=== PATIENT | female | born 1955 | race Caucasian/White ===

== ENCOUNTER → 2017-11-23 | Outpatient (CLI) | payer BC ==
[2017-11-23 17:20] LABS: ESTIMATED AVERAGE GLUCOSE 105 MG/DL (60-110); HEMOGLOBIN A1c 5.3 %
[2017-11-23 17:37] LABS: FERRITIN 125 NG/ML (8-252); IRON (FE) 43 UG/DL (50-170); PERCENT SATURATION 12.9 % (13.2-45.0); TOTAL IRON BINDING CAPACITY 333 UG/DL (250-450)
[2017-11-24 09:38] LABS: FOLATE 18.9 NG/ML; VITAMIN B12 LEVEL > 2000 PG/ML
[2017-11-28 00:10] LABS: TRANSFERRIN 255 mg/dL (200-370)
== END ==
LOC: M LAB 16:41
DX: D64.9 Anemia, unspecified (principal)
CPT/HCPCS: 82746

== ENCOUNTER → 2017-12-06 | Outpatient (REF) | payer BC ==
[2017-12-08 10:26] LABS: CA 125 6.7 U/ML (<30.2)
== END ==
LOC: M LAB REF 13:44
DX: C54.1 Malignant neoplasm of endometrium (principal); C78.7 Secondary malignant neoplasm of liver and intrahepatic bile duct; C77.9 Secondary and unspecified malignant neoplasm of lymph node, unspecified
CPT/HCPCS: 86304

== ENCOUNTER → 2017-12-14 | Outpatient (REF) | payer BC ==
[2017-12-14 14:27] LABS: FREE T4 1.13 NG/DL (0.76-1.46)
== END ==
LOC: M LAB REF 13:33
DX: Z79.899 Other long term (current) drug therapy (principal); C54.1 Malignant neoplasm of endometrium; C78.7 Secondary malignant neoplasm of liver and intrahepatic bile duct; C77.9 Secondary and unspecified malignant neoplasm of lymph node, unspecified
CPT/HCPCS: 84443

== ENCOUNTER → 2018-01-04 | Outpatient (REF) | payer BC ==
[2018-01-04 17:59] LABS: FERRITIN 34 NG/ML (8-252); IRON (FE) 38 UG/DL (50-170); PERCENT SATURATION 11.7 % (13.2-45.0); TOTAL IRON BINDING CAPACITY 326 UG/DL (250-450)
[2018-01-05 10:43] LABS: CA 125 6.4 U/ML (<30.2)
== END ==
LOC: M LAB REF 17:22
DX: C54.1 Malignant neoplasm of endometrium (principal); C77.9 Secondary and unspecified malignant neoplasm of lymph node, unspecified; C78.7 Secondary malignant neoplasm of liver and intrahepatic bile duct

== ENCOUNTER → 2018-03-09 | Outpatient (CLI) | payer BC | LOC: M RAD 09:10 | DX: C54.1 Malignant neoplasm of endometrium (principal); N13.30 Unspecified hydronephrosis | CPT/HCPCS: 76775 ==

== ENCOUNTER → 2018-03-12 | Outpatient (REF) | payer BC ==
[2018-03-12 18:50] LABS: FERRITIN 45 NG/ML (8-252); IRON (FE) 29 UG/DL (50-170); PERCENT SATURATION 11.8 % (13.2-45.0); TOTAL IRON BINDING CAPACITY 245 UG/DL (250-450)
[2018-03-13 09:30] LABS: CA 125 3.6 U/ML (<30.2)
== END ==
LOC: M LAB REF 17:53
DX: C54.1 Malignant neoplasm of endometrium (principal); C78.7 Secondary malignant neoplasm of liver and intrahepatic bile duct; C77.9 Secondary and unspecified malignant neoplasm of lymph node, unspecified; C78.01 Secondary malignant neoplasm of right lung; C78.02 Secondary malignant neoplasm of left lung

== ENCOUNTER → 2018-03-15 | Outpatient (REF) | payer BC ==
[2018-03-15 17:01] LABS: APPEARANCE, URINE CLEAR (CLEAR); BACTERIA, URINE AUTO NEGATIVE (NEGATIVE); BILIRUBIN, URINE AUTO NEGATIVE (NEGATIVE); BLOOD, URINE BLOOD NEGATIVE (NEGATIVE); COLOR, URINE YELLOW (YELLOW); GLUCOSE, URINE (UA) AUTO NEGATIVE (NEGATIVE); KETONE, URINE AUTO NEGATIVE (NEGATIVE); LEUKOCYTE ESTERASE, URINE AUTO NEGATIVE (NEGATIVE); MUCUS, URINE SMALL (NEGATIVE); NITRITE, URINE AUTO NEGATIVE (NEGATIVE); PROTEIN, URINE AUTO NEGATIVE (NEGATIVE); RBC, URINE AUTO 3 /HPF (0-3); SPECIFIC GRAVITY URINE AUTO 1.018 (1.002-1.035); SQUAMOUS EPITHELIAL CELL UR AU 0 /HPF (0-6); UROBILINOGEN, URINE AUTO 0.2 mg/dL (0.0-2.0); WBC, URINE AUTO 1 /HPF (0-3)
[2018-03-15 17:31] LABS: MALB URINE SIEMENS 15.8 MG/L
[2018-03-15 17:40] LABS: MAU/CREAT RATIO 14.4 MCG/MG (0.0-30.0)
== END ==
LOC: M SFHCPLAZ 14:50
DX: N17.9 Acute kidney failure, unspecified (principal)

== ENCOUNTER → 2018-04-12 | Outpatient (REF) | payer BC ==
[2018-04-12 16:44] LABS: ANION GAP 6 MEQ/L (8-16); BLOOD UREA NITROGEN 15 MG/DL (7-18); CALCIUM LEVEL 8.8 MG/DL (8.8-10.2); CARBON DIOXIDE LEVEL 30 MEQ/L (21-32); CHLORIDE LEVEL 101 MEQ/L (98-107); GLOMERULAR FILTRATION RATE > 60.0 (>45); GLUCOSE, FASTING 87 MG/DL (70-100); POTASSIUM SERUM 4.1 MEQ/L (3.5-5.1); SODIUM LEVEL 137 MEQ/L (136-145)
== END ==
LOC: M SFHCPLAZ 12:17
DX: N13.39 Other hydronephrosis (principal)
CPT/HCPCS: 80048

== ENCOUNTER 2018-06-15 08:46 | Emergency (ER) | payer BC ==
[~2018-06-15] VITALS: Ht 160 cm; Wt 54.5 kg
--- NOTE | 2018-06-15 10:19 | REP ---
Clinical: Left lower extremity pain and swelling with history of malignancy . Technique: Salas scale and color Doppler evaluation using linear high frequency transducer. Findings: Ultrasound examination of the left lower extremity deep venous structures from the common femoral vein to the popliteal vein was performed. There is nonocclusive thrombus in the common femoral vein extending in to the confluence with the greater saphenous vein and the more distal vessels demonstrate patent but stagnant decreased flow. Impression: Partially occlusive thrombus in the common femoral vein extending into the visualized proximal greater saphenous vein Electronically Signed by Keith Denise MD 06/15/2018 10:10 A
[2018-06-15 10:28] LABS: BASO % 0.1 % (0.0-1.0); EOS % 0.3 % (0.0-3.0); HEMATOCRIT 27.7 % (36.0-47.0); HEMOGLOBIN 8.7 g/dl (12.0-15.5); LYMPH # 0.6 10^3/uL (1.5-4.5); LYMPH % 8.3 % (24.0-44.0); MEAN CORPUSCULAR HGB CONC 31.4 g/dl (32.0-36.5); MONO # 0.6 10^3/uL (0.0-0.8); MONO % 8.4 % (0.0-5.0); NEUTROPHILS # 5.8 10^3/uL (1.8-7.7); NEUTROPHILS % 82.5 % (36.0-66.0); PLATELET COUNT, AUTOMATED 259 10^3/uL (150-450); RED BLOOD COUNT 3.22 10^6/uL (4.00-5.40)
[2018-06-15 10:40] LABS: PROTHROMBIN TIME 13.3 SECONDS (12.1-14.4)
[2018-06-15 11:01] LABS: ALBUMIN 3.3 GM/DL (3.2-5.2); BILIRUBIN,TOTAL 0.4 MG/DL (0.2-1.0); CALCIUM LEVEL 9.6 MG/DL (8.8-10.2); CREATININE FOR GFR 1.09 MG/DL (0.55-1.30); GLOMERULAR FILTRATION RATE 54.1 (>45); POTASSIUM SERUM 4.3 MEQ/L (3.5-5.1); TOTAL PROTEIN 7.5 GM/DL (6.4-8.2)
[2018-06-15] MEDS ORDERED: ISOVUE-370 76% 100ML VIAL (Q9967) As Ordered ONE (11:12)
--- NOTE | 2018-06-15 11:30 | ECGEPIP ---
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
--- NOTE | 2018-06-15 12:26 | REP ---
Clinical: Acute chest pain with shortness of breath . Technique: Axial contrast enhanced images from the thoracic inlet to the upper abdomen using 100 ml Isovue 370 intravenous contrast material with coronal and sagittal re-formations. Findings: Satisfactory enhancement of the pulmonary vasculature is achieved and no filling defects are identified to suggest pulmonary embolus. Thoracic aorta is normal caliber without aneurysm or dissection. Heart and pericardium are normal. Bilateral lung majano are well aerated and clear without acute pulmonary parenchymal consolidation or atelectasis. No nodule or mass lesion. No pleural effusion/reaction. No pneumothorax. No adenopathy. Impression: No evidence for pulmonary embolus. No acute pleuroparenchymal or mediastinal process. Electronically Signed by Keith Denise MD 06/15/2018 12:18 P
[2018-06-15] MEDS ORDERED: ELIQ5TAB PO (13:27)
[2018-06-15 13:32] VITALS: BP 128/64
== END 2018-06-15 13:44 | disposition home or self-care (01) ==
LOC: M ED 08:46
DX: C54.1 Malignant neoplasm of endometrium (principal); N13.30 Unspecified hydronephrosis; I82.412 Acute embolism and thrombosis of left femoral vein; D64.9 Anemia, unspecified; Z79.01 Long term (current) use of anticoagulants
CPT/HCPCS: 36415; 71275; 80053; 85025; 85610; 93005; 93971; 99284; Q9967

== ENCOUNTER → 2018-06-15 | Outpatient (CLI) | payer BC ==
[~2018-06-15] MED LIST: ELIQ5TAB PO; NORCOTAB PO
--- NOTE | 2018-06-15 09:16 | REP ---
Clinical: Endometrial cancer with pelvic mass. Technique: Axial noncontrast images from the lung bases to the pubic symphysis with coronal and sagittal re-formations. Comparison: None. Findings: Evaluation is significantly limited by the lack of oral and into venous contrast enhancement as well as paucity of intraperitoneal fat. Large low density liver mass in the left lobe measures approximately 5.7 cm and is concerning for metastatic disease. Mesenteric and retroperitoneal adenopathy along with pelvic adenopathy and ill-defined large pelvic mass is appreciated but poorly delineated due to the lack of contrast. There is associated left-sided grade 4 hydroureteronephrosis which terminates at the level of bulky soft tissue within the pelvis consistent with extrinsic obstruction by the neoplasm. There is a vague subcutaneous infiltration involving the visualized portion of the left hip and very vague subtle stranding involving the left external iliac and common femoral vein raising the possibility of venous obstruction either by thrombus or more central compression by adenopathy/mass. Spleen, pancreas, bilateral adrenal glands and right kidney appear normal for noncontrast evaluation. The enteric system is without obstruction. Small amount of ascites suggested in the pelvis. No free air. Abdominal aorta without aneurysm. Musculoskeletal structures demonstrate degenerative changes without obvious focal osseous metastatic lesion identified. However, there is a somewhat mottled appearance to the left inferior pubic ramus and ischium with a subtle cortical irregularities raising the possibility of infiltrating metastatic disease (images [id number]). Lung bases are clear. Impression: 1. Hepatic mass along with suspected intraperitoneal and retroperitoneal adenopathy and pelvic mass/adenopathy consistent with malignancy and metastatic disease. 2. Grade 4 left hydroureteronephrosis secondary to obstruction by pelvic mass. 3. Asymmetric subcutaneous edema involving the visualized left hip with subtle infiltration surrounding the left external iliac vein and common femoral vein raising the possibility of venous obstruction either by extrinsic compression or thrombus. 4. Further chronic changes as described above. Electronically Signed by Keith Denise MD 06/15/2018 09:07 A
== END ==
LOC: M RAD 08:26
PROVIDERS: ATTEND Internal Medicine Medical Oncology
DX: C54.1 Malignant neoplasm of endometrium (principal); C78.7 Secondary malignant neoplasm of liver and intrahepatic bile duct; K76.89 Other specified diseases of liver

== ENCOUNTER 2018-06-22 14:01 | Emergency (ER) | payer BC ==
[~2018-06-22] VITALS: Ht 160 cm; Wt 55.9 kg
[~2018-06-22 14:01] MED LIST changes: -NORCOTAB PO
[2018-06-22 14:48] LABS: HEMATOCRIT 26.4 % (36.0-47.0); HEMOGLOBIN 8.5 g/dl (12.0-15.5); MEAN CORPUSCULAR HEMOGLOBIN 27.2 pg (27.0-33.0); MEAN CORPUSCULAR HGB CONC 32.2 g/dl (32.0-36.5); MEAN CORPUSCULAR VOLUME 84.6 fl (80.0-96.0); PLATELET COUNT, AUTOMATED 298 10^3/uL (150-450); RED BLOOD COUNT 3.12 10^6/uL (4.00-5.40)
[2018-06-22 14:58] LABS: INR 1.28; PROTHROMBIN TIME 16.1 SECONDS (12.1-14.4)
[2018-06-22 14:59] LABS: PARTIAL THROMBOPLASTIN TIME 40.8 SECONDS (25.4-37.6)
[2018-06-22 15:09] LABS: BLOOD UREA NITROGEN 17 MG/DL (7-18); CALCIUM LEVEL 9.2 MG/DL (8.8-10.2); CARBON DIOXIDE LEVEL 29 MEQ/L (21-32); CHLORIDE LEVEL 96 MEQ/L (98-107); CREATININE FOR GFR 0.94 MG/DL (0.55-1.30); GLOMERULAR FILTRATION RATE > 60.0 (>45); GLUCOSE, FASTING 103 MG/DL (70-100); POTASSIUM SERUM 4.2 MEQ/L (3.5-5.1); SODIUM LEVEL 133 MEQ/L (136-145)
--- NOTE | 2018-06-22 15:48 | REP ---
REASON: Pain and swelling. Multiple ultrasonographic images of the deep venous structures of the left thigh were obtained along with Doppler interrogation and compressive techniques with augmentation. Abnormal echogenic material is seen in the common femoral vein. Coaptation is not achievable. There is a decreased response to augmentation. IMPRESSION: Positive deep vein thrombosis, proximal common femoral vein. Electronically Signed by Papito Acosta DO 06/22/2018 04:55 P
[2018-06-22 16:30] VITALS: BP 131/78
[2018-06-22] MEDS ORDERED: NORCOTAB PO (17:26)
[2018-06-22] MEDS ORDERED: NORCO, ANEXSIA 5/325MG TABLET (HYDROcodone/ACETAMINOPHEN) PO ONE (17:30)
[2018-07-04] MEDS ORDERED: ELIQ5TAB PO (10:18)
== END 2018-06-22 17:54 | disposition home or self-care (01) ==
LOC: M ED 14:01
DX: I82.412 Acute embolism and thrombosis of left femoral vein (principal); Z85.42 Personal history of malignant neoplasm of other parts of uterus; Z79.01 Long term (current) use of anticoagulants

== ENCOUNTER 2018-07-16 12:46 | Outpatient (CLI) | payer BC ==
[~2018-07-16] VITALS: Ht 160 cm; Wt 57.1 kg
[~2018-07-16 12:46] MED LIST changes: +NORCOTAB PO
[2018-07-16] MEDS ORDERED: NORCOTAB PO (12:59)
[2018-07-16 13:20] VITALS: BP 130/58
[2018-07-16] MEDS ORDERED: ACETAMINOPHEN TAB 650MG DOSE (2X325MG) PO ONE (13:45)
[2018-07-16] MEDS ORDERED: diphenhydrAMINE 25 MG CAP PO ONE (13:45)
[2018-07-16] MEDS ORDERED: EMEN150S IV (18:42)
[2018-07-16] MEDS ORDERED: [UNRECOGNIZED DRUG - CODE] IV (18:42)
[2018-07-16] MEDS ORDERED: PACL150I IV (18:42)
[2018-07-16] MEDS ORDERED: [UNRECOGNIZED DRUG - CODE] IV (18:42)
[2018-07-16] MEDS ORDERED: NEUL0.6I SC (18:42)
[2018-07-16] MEDS ORDERED: DIPH50VL IV (18:42)
[2018-07-16] MEDS ORDERED: NORC1TAB4 PO (18:42)
[2018-07-16] MEDS ORDERED: ELIQ5TAB PO (18:42)
[2018-07-16] MEDS ORDERED: [UNRECOGNIZED DRUG - CODE] IV (18:42)
[2018-07-16] MEDS ORDERED: [UNRECOGNIZED DRUG - CODE] IV (18:42)
[2018-07-16] MEDS ORDERED: FISH1000 PO (22:48)
[2018-07-16] MEDS ORDERED: VITA500T PO (22:48)
[2018-07-16] MEDS ORDERED: MAGN400T2 PO (22:48)
[2018-07-16] MEDS ORDERED: B COTAB3 PO (22:48)
[2018-07-16] MEDS ORDERED: CALC500T36 PO (22:48)
[2018-07-16] MEDS ORDERED: VITA100066 PO (22:48)
== END 2018-07-16 16:15 | disposition home or self-care (01) ==
LOC: M OPCLI4PR 12:46 → M MS4PR 12:48 → M OPCLI4PR 16:15
PROVIDERS: ATTEND Internal Medicine Medical Oncology
DX: D64.9 Anemia, unspecified (principal)

== ENCOUNTER 2018-07-16 15:26 | Inpatient (IN) | payer BC ==
[2018-07-16] MEDS ORDERED: ISOVUE-300 61% 50ML VIAL (Q9967) As Ordered ONE (15:35)
[2018-07-16] MEDS ORDERED: LIDOCAINE 2% MDV 20 ML VIAL As Ordered ONE ×2 (15:35→15:43)
[2018-07-16] MEDS ORDERED: HEPARIN 1,000 UNITS/ML 10ML VIAL (FOR RADIOLOGY& DIALYSIS ONLY) As Ordered ONE (15:35)
[2018-07-16] MEDS ORDERED: HEPARIN 25,000 UNITS/250 ML D5W BAG (100 UNITS/ML) As Ordered ONE (15:42)
[2018-07-16] MEDS ORDERED: ALTEPLASE 2 MG/2 ML VIAL (J2997 PER 1MG) As Ordered ONE (15:55)
[2018-07-16 16:30] VITALS: BP 143/83
[2018-07-16] MEDS ORDERED: [UNRECOGNIZED DRUG - CODE] IV (18:42)
[2018-07-16] MEDS ORDERED: [UNRECOGNIZED DRUG - CODE] IV (18:42)
[2018-07-16] MEDS ORDERED: DIPH50VL IV (18:42)
[2018-07-16] MEDS ORDERED: NORC1TAB4 PO (18:42)
[2018-07-16] MEDS ORDERED: [UNRECOGNIZED DRUG - CODE] IV (18:42)
[2018-07-16] MEDS ORDERED: NEUL0.6I SC (18:42)
[2018-07-16] MEDS ORDERED: EMEN150S IV (18:42)
[2018-07-16] MEDS ORDERED: ELIQ5TAB PO (18:42)
[2018-07-16] MEDS ORDERED: [UNRECOGNIZED DRUG - CODE] IV (18:42)
[2018-07-16] MEDS ORDERED: PACL150I IV (18:42)
[2018-07-16] MEDS ORDERED: ALTEPLASE RECOMBINANT 25 MG in NS 225 ML IV SCH (21:00)
[2018-07-16 22:04] VITALS: BP 143/83
[2018-07-16] MEDS: HEPARIN DRIP 25,000 UNITS in APPROPRIATE DILUENT 1 EA IV SCH (22:30)
[2018-07-16] MEDS ORDERED: SLF 3 ML SYR IV PRN (22:30)
[2018-07-16] MEDS ORDERED: VITA100066 PO (22:48)
[2018-07-16] MEDS ORDERED: B COTAB3 PO (22:48)
[2018-07-16] MEDS ORDERED: FISH1000 PO (22:48)
[2018-07-16] MEDS ORDERED: CALC500T36 PO (22:48)
[2018-07-16] MEDS ORDERED: MAGN400T2 PO (22:48)
[2018-07-16] MEDS ORDERED: VITA500T PO (22:48)
[2018-07-16 23:01] LABS: HEMATOCRIT 26.3 % (36.0-47.0); HEMOGLOBIN 8.3 g/dl (12.0-15.5)
[2018-07-16 23:11] VITALS: BP 127/64
[2018-07-16 23:12] LABS: INR 0.99; PROTHROMBIN TIME 13.2 SECONDS (12.1-14.4)
[2018-07-16 23:14] LABS: PARTIAL THROMBOPLASTIN TIME 50.9 SECONDS (25.4-37.6)
[2018-07-16 23:30] VITALS: BP 129/67
[2018-07-16] MEDS: NORCO, ANEXSIA 5/325MG TABLET (HYDROcodone/ACETAMINOPHEN) PO PRN (23:49)
[2018-07-17] VITALS (24 sets, daily range): BP systolic 116–146; BP diastolic 63–77
[2018-07-17] MEDS: SLF 3 ML SYR IV SCH ×3 (05:46→21:13)
[2018-07-17] MEDS: SODIUM CHLORIDE 0.9% INJ 10 ML SYR IV SCH ×2 (05:46→18:14)
[2018-07-17] MEDS: NORCO, ANEXSIA 5/325MG TABLET (HYDROcodone/ACETAMINOPHEN) PO PRN ×3 (05:47→18:14)
[2018-07-17 06:12] LABS: PARTIAL THROMBOPLASTIN TIME 67.8 SECONDS (25.4-37.6)
[2018-07-17 06:47] LABS: HEMATOCRIT 25.4 % (36.0-47.0); HEMOGLOBIN 8.2 g/dl (12.0-15.5); MEAN CORPUSCULAR HGB CONC 32.3 g/dl (32.0-36.5); MEAN CORPUSCULAR VOLUME 83.6 fl (80.0-96.0); PLATELET COUNT, AUTOMATED 121 10^3/uL (150-450); RED BLOOD COUNT 3.04 10^6/uL (4.00-5.40); WHITE BLOOD COUNT 12.4 10^3/uL (4.0-10.0)
[2018-07-17 06:50] LABS: BLOOD UREA NITROGEN 15 MG/DL (7-18); CALCIUM LEVEL 8.7 MG/DL (8.8-10.2); CARBON DIOXIDE LEVEL 26 MEQ/L (21-32); CHLORIDE LEVEL 97 MEQ/L (98-107); CREATININE FOR GFR 0.77 MG/DL (0.55-1.30); GLOMERULAR FILTRATION RATE > 60.0 (>45); GLUCOSE, FASTING 100 MG/DL (70-100); POTASSIUM SERUM 4.2 MEQ/L (3.5-5.1); SODIUM LEVEL 132 MEQ/L (136-145)
--- NOTE | 2018-07-17 11:33 | HPEPDOC ---
General Date of Admission Jul 16, 2018 at 16:30 Attending Physician: Matteo Sandoval MD Chief Complaint The patient is a 63-year-old female admitted with left lower extremity DVT with extensive swelling and severe pain. Source: Patient, Old records Exam Limitations: No limitations Timing/Duration: Week(s) (approximately 4 weeks), Constant, Getting worse History of Present Illness Patient is a 63-year-old female who was diagnosed with left lower extremity DVT approximately 1 month ago and has been treated as an outpatient who now presents with worsening swelling and pain in her left lower extremity with inability to ambulate and complaining of 10 out of 10 pain in her left lower extremity. Home Medications Scheduled (B Complex) 1 Tab Tab, 1 TAB PO DAILY, (Reported) Apixaban Base (Eliquis) 5 Mg Tab, 5 MG PO BID, (Reported) Ascorbic Acid (Vitamin C) 500 Mg Tab, 500 MG PO DAILY, (Reported) Cholecalciferol (Vitamin D) 1,000 Unit Tab, 1,000 UNIT PO DAILY, (Reported) Fish Oil (Fish Oil) 1,000 Mg Cap, 1,000 MG PO DAILY, (Reported) Magnesium Oxide (Magnesium Oxide) 400 Mg Tab, 400 MG PO DAILY, (Reported) Oyster Shell Calcium (Calcium) 500 Mg Tab, 500 MG PO DAILY, (Reported) Scheduled PRN (Lidocaine/Prilocaine 2.5-2.5 %) 1 Cre Cre, 1 DOSE TOP PRN PRN for PAIN, (Reported) APPLY TO PORT Allergies Coded Allergies: No Known Drug Allergy (Verified Allergy, Unknown, 12/06/17) Past Medical History Medical History Metastatic endometrial cancer Left lower extremity DVT Surgical History Pilonidal cystectomy Family History Significant Family History: Diabetes, Heart disease, Hypertension Father's with a history of coronary artery disease and diabetes mellitus Mother is with a history of hypertension Social History * Smoker: Denies Alcohol: Denies Drugs: denies Recent Travel/Sick Contacts: Denies: Recent travel, Recent sick contacts Psychosocial History: No pertinent psych hx Review of Systems Review of Systems General: Denies: Chills, Night Sweats, Fatigue, Malaise, Normal Appetite Constitutional: Denies: Chills, Fever, Malaise, Night Sweats, Weakness, Fatigue, Weight Loss, Lethargy Eyes: Denies: Pain, Vision change, Conjunctivae inflammation, Eyelid inflammation, Redness HEENT: Denies: Head Aches, Ear Pain, Dysphagia, Sinus Congestion, Post Nasal Drip, Sore Throat, Epistaxis Skin: Denies: Rash, Lesions, Jaundice, Bruising, Itching, Dry, Breakdown, Nail Changes Pulmonary: Denies: Dyspnea, Cough, Pleuritic Chest Pain Cardiovascular: Denies: Chest Pain, Palpitations, Orthopnea, Paroxysmal Noc. Dyspnea, Edema, Lt Headedness Gastrointestinal: Denies: Nausea, Vomiting, Abdominal Pain, Diarrhea, Constipation, Melena, Hematochezia Genitourinary: Denies: Dysuria, Frequency, Incontinence, Hematuria, Retention Hematologic: Denies: Bruising, Bleeding Excessively, Petecchia, Purpura, Enlarged Lymph Nodes ENDOCRINE: Denies: Polydipsia, Polyphagia, Polyuria, Heat Intolerance, Cold Intolerance Musculoskeletal: Reports: Leg Pain, Foot Pain; Denies: Neck Pain, Back Pain, Shoulder Pain, Arm Pain, Hand Pain, Joint Pain, Muscle Pain, Spasms Neurological: Denies: Weakness, Numbness, Incoordination, Change in speech, Confusion, Seizures Psych: Reports: Mood Normal, Anxiety, Depression; Denies: Memory Issues, Thoughts of Self Harm, Anger, Thoughts of Harming Other Objective Physical Examination General Exam: Positive: Alert, Cooperative, Moderate Distress Eye Exam: Positive: PERRLA, Conjunctiva & lids normal, EOMI ENT Exam: Positive: Atraumatic, Mucous membr. moist/pink, Pharynx Normal, Tongue Midline, Nares Patent, Ext Auditory Canal Nml, Pinna Normal Neck Exam: Positive: Supple, +2 carotid pulse wo bruit; Negative: JVD, thyromegaly, Lymphadenopathy Chest Exam: Positive: Clear to auscultation, Normal air movement; Negative: Rales, Rhonchi, Wheezing, Diminished Heart Exam: Positive: Tachycardic, Regular Rhythm; Negative: Bradycardic, Irregular Rhythm, Gallops, Murmurs, Rubs Telemetry: Positive: No significant arrhythmia, Sinus Abdomen Exam: Positive: Normal bowel sounds, Soft; Negative: BS Hyperactive, BS Hypoactive, Tenderness, Hepatospenomegaly, Mass, Hernia Female Exam: Positive: Nl Ext Genitalia Extremity Exam: Positive: Cyanosis, Edema, Normal pulses, Tenderness, Swelling; Negative: Clubbing Skin Exam: Positive: Nl turgor and temperature; Negative: Rash, Breakdown, Lesion, Pruritus Neuro Exam: Positive: Normal Gait, Normal Speech, Strength at 5/5 X4 ext, Normal Tone, Sensation Intact, Cranial Nerves 3-12 NL, Reflexes 2+ Psych Exam: Positive: Mental status NL, Mood NL, Memory Intact, Oriented x 3; Negative: Anxiety Assessment/Plan Assessment 63-year-old female with massive left lower extremity swelling, severe pain and extensive DVT. Plan Patient will be admitted started on a heparin drip and will undergo a left lower extremity venous thrombolysis. Matteo Sandoval MD Jul 17, 2018 11:33
[2018-07-17] MEDS: SODIUM CHLORIDE 0.9% INJ 10 ML SYR IV PRN (12:18)
[2018-07-17 12:32] LABS: HEMOGLOBIN 8.6 g/dl (12.0-15.5)
[2018-07-17] MEDS ORDERED: MOM 30ML SUSPENSION UDC PO ONE (13:30)
[2018-07-17] MEDS: DOCUSATE SODIUM 100 MG CAP PO SCH (13:49)
[2018-07-17 18:38] LABS: HEMATOCRIT 26.4 % (36.0-47.0); HEMOGLOBIN 8.5 g/dl (12.0-15.5)
[2018-07-17] MEDS: ALTEPLASE RECOMBINANT 10 MG in NS 90 ML IV SCH (20:56)
[2018-07-17] MEDS: HEPARIN DRIP 25,000 UNITS in APPROPRIATE DILUENT 1 EA IV SCH (20:57)
[2018-07-17 23:40] LABS: HEMATOCRIT 26.7 % (36.0-47.0); HEMOGLOBIN 8.4 g/dl (12.0-15.5)
[2018-07-17 23:53] LABS: PARTIAL THROMBOPLASTIN TIME 51.5 SECONDS (25.4-37.6)
[2018-07-18] VITALS (18 sets, daily range): BP systolic 103–143; BP diastolic 62–103
[2018-07-18] MEDS: NORCO, ANEXSIA 5/325MG TABLET (HYDROcodone/ACETAMINOPHEN) PO PRN ×4 (00:06→18:11)
[2018-07-18] MEDS: SODIUM CHLORIDE 0.9% INJ 10 ML SYR IV SCH ×2 (05:42→18:10)
[2018-07-18] MEDS: SLF 3 ML SYR IV SCH (05:42)
[2018-07-18 06:11] LABS: HEMATOCRIT 27.2 % (36.0-47.0); HEMOGLOBIN 8.5 g/dl (12.0-15.5); MEAN CORPUSCULAR HEMOGLOBIN 26.2 pg (27.0-33.0); MEAN CORPUSCULAR HGB CONC 31.3 g/dl (32.0-36.5); MEAN CORPUSCULAR VOLUME 83.7 fl (80.0-96.0); PLATELET COUNT, AUTOMATED 139 10^3/uL (150-450); RED BLOOD COUNT 3.25 10^6/uL (4.00-5.40); WHITE BLOOD COUNT 15.6 10^3/uL (4.0-10.0)
[2018-07-18 06:34] LABS: BLOOD UREA NITROGEN 14 MG/DL (7-18); CALCIUM LEVEL 8.5 MG/DL (8.8-10.2); CARBON DIOXIDE LEVEL 27 MEQ/L (21-32); CHLORIDE LEVEL 95 MEQ/L (98-107); CREATININE FOR GFR 0.61 MG/DL (0.55-1.30); GLOMERULAR FILTRATION RATE > 60.0 (>45); GLUCOSE, FASTING 107 MG/DL (70-100); POTASSIUM SERUM 4.3 MEQ/L (3.5-5.1); SODIUM LEVEL 130 MEQ/L (136-145)
[2018-07-18 06:47] LABS: PARTIAL THROMBOPLASTIN TIME 41.1 SECONDS (25.4-37.6)
[2018-07-18] MEDS: DOCUSATE SODIUM 100 MG CAP PO SCH (10:01)
[2018-07-18 12:11] LABS: HEMATOCRIT 26.7 % (36.0-47.0); HEMOGLOBIN 8.4 g/dl (12.0-15.5)
[2018-07-18 12:21] LABS: PARTIAL THROMBOPLASTIN TIME 49.5 SECONDS (25.4-37.6)
[2018-07-18 18:28] LABS: HEMATOCRIT 26.1 % (36.0-47.0); HEMOGLOBIN 8.2 g/dl (12.0-15.5)
[2018-07-18] MEDS: SENNA 8.6 MG TAB (SENOKOT) PO PRN (18:35)
[2018-07-18 18:48] LABS: PARTIAL THROMBOPLASTIN TIME 42.1 SECONDS (25.4-37.6)
[2018-07-18] MEDS: NS 1,000 ML IV SCH (19:41)
[2018-07-18] MEDS: ALTEPLASE RECOMBINANT 10 MG in NS 90 ML IV SCH (22:14)
[2018-07-18] MEDS: HEPARIN DRIP 25,000 UNITS in APPROPRIATE DILUENT 1 EA IV SCH (22:15)
[2018-07-19] VITALS (21 sets, daily range): BP systolic 101–149; BP diastolic 57–77
[2018-07-19] MEDS: NORCO, ANEXSIA 5/325MG TABLET (HYDROcodone/ACETAMINOPHEN) PO PRN ×5 (00:04→23:57)
[2018-07-19] MEDS: SODIUM CHLORIDE 0.9% INJ 10 ML SYR IV PRN ×2 (00:05→23:45)
[2018-07-19 00:34] LABS: HEMATOCRIT 24.1 % (36.0-47.0); HEMOGLOBIN 7.7 g/dl (12.0-15.5)
[2018-07-19 00:41] LABS: PARTIAL THROMBOPLASTIN TIME 49.7 SECONDS (25.4-37.6)
[2018-07-19] MEDS ORDERED: LIDOCAINE 5% (LIDODERM) PATCH TD ONE (05:00)
[2018-07-19] MEDS: SODIUM CHLORIDE 0.9% INJ 10 ML SYR IV SCH ×2 (06:00→18:04)
[2018-07-19] MEDS: NS 1,000 ML IV SCH ×2 (06:14→15:38)
[2018-07-19 06:30] LABS: HEMATOCRIT 23.3 % (36.0-47.0); HEMOGLOBIN 7.4 g/dl (12.0-15.5); MEAN CORPUSCULAR HEMOGLOBIN 26.8 pg (27.0-33.0); MEAN CORPUSCULAR HGB CONC 31.8 g/dl (32.0-36.5); MEAN CORPUSCULAR VOLUME 84.4 fl (80.0-96.0); PLATELET COUNT, AUTOMATED 129 10^3/uL (150-450); RED BLOOD COUNT 2.76 10^6/uL (4.00-5.40); WHITE BLOOD COUNT 15.9 10^3/uL (4.0-10.0)
[2018-07-19 06:45] LABS: PARTIAL THROMBOPLASTIN TIME 42.5 SECONDS (25.4-37.6)
[2018-07-19 07:22] LABS: BLOOD UREA NITROGEN 12 MG/DL (7-18); CALCIUM LEVEL 8.2 MG/DL (8.8-10.2); CARBON DIOXIDE LEVEL 25 MEQ/L (21-32); CHLORIDE LEVEL 97 MEQ/L (98-107); GLOMERULAR FILTRATION RATE > 60.0 (>45); GLUCOSE, FASTING 106 MG/DL (70-100); POTASSIUM SERUM 4.2 MEQ/L (3.5-5.1); SODIUM LEVEL 132 MEQ/L (136-145)
[2018-07-19] MEDS: SENNA 8.6 MG TAB (SENOKOT) PO PRN (09:14)
[2018-07-19] MEDS: DOCUSATE SODIUM 100 MG CAP PO SCH (09:14)
[2018-07-19 12:00] LABS: HEMATOCRIT 24.4 % (36.0-47.0); HEMOGLOBIN 7.7 g/dl (12.0-15.5)
[2018-07-19] MEDS ORDERED: **NOTE PATIENT COMMENT** MISC XX ONE (12:00)
[2018-07-19 12:18] LABS: PARTIAL THROMBOPLASTIN TIME 39.2 SECONDS (25.4-37.6)
[2018-07-19] MEDS: ACETAMINOPHEN TAB 650MG DOSE (2X325MG) PO PRN ×2 (13:50→14:45)
[2018-07-19] MEDS ORDERED: BISACODYL 10 MG SUPP PR ONE (15:30)
[2018-07-19] MEDS ORDERED: BISACODYL 10 MG SUPP PR PRN (15:30)
[2018-07-19] MEDS ORDERED: FLEET ENEMA PR PRN (18:00)
[2018-07-19 18:17] LABS: HEMATOCRIT 24.6 % (36.0-47.0); HEMOGLOBIN 7.7 g/dl (12.0-15.5)
[2018-07-19 18:30] LABS: PARTIAL THROMBOPLASTIN TIME 36.5 SECONDS (25.4-37.6)
[2018-07-19] MEDS: LIDOCAINE 5% (LIDODERM) PATCH TD SCH (21:00)
[2018-07-19] MEDS: ALTEPLASE RECOMBINANT 10 MG in NS 90 ML IV SCH (21:17)
[2018-07-19] MEDS: HEPARIN DRIP 25,000 UNITS in APPROPRIATE DILUENT 1 EA IV SCH (21:21)
[2018-07-20] VITALS (21 sets, daily range): BP systolic 111–156; BP diastolic 56–82
[2018-07-20 00:08] LABS: HEMATOCRIT 22.8 % (36.0-47.0); HEMOGLOBIN 7.1 g/dl (12.0-15.5)
[2018-07-20 00:13] LABS: PARTIAL THROMBOPLASTIN TIME 39.1 SECONDS (25.4-37.6)
[2018-07-20] MEDS: NS 1,000 ML IV SCH ×3 (02:15→21:38)
[2018-07-20] MEDS: NORCO, ANEXSIA 5/325MG TABLET (HYDROcodone/ACETAMINOPHEN) PO PRN ×3 (05:46→19:24)
[2018-07-20] MEDS: SODIUM CHLORIDE 0.9% INJ 10 ML SYR IV SCH ×2 (05:47→18:00)
[2018-07-20 06:08] LABS: HEMATOCRIT 22.3 % (36.0-47.0); MEAN CORPUSCULAR HEMOGLOBIN 26.1 pg (27.0-33.0); MEAN CORPUSCULAR HGB CONC 31.4 g/dl (32.0-36.5); MEAN CORPUSCULAR VOLUME 83.2 fl (80.0-96.0); PLATELET COUNT, AUTOMATED 117 10^3/uL (150-450); RED BLOOD COUNT 2.68 10^6/uL (4.00-5.40); WHITE BLOOD COUNT 14.2 10^3/uL (4.0-10.0)
[2018-07-20 06:32] LABS: BLOOD UREA NITROGEN 11 MG/DL (7-18); CARBON DIOXIDE LEVEL 24 MEQ/L (21-32); CHLORIDE LEVEL 104 MEQ/L (98-107); CREATININE FOR GFR 0.43 MG/DL (0.55-1.30); GLOMERULAR FILTRATION RATE > 60.0 (>45); GLUCOSE, FASTING 83 MG/DL (70-100); POTASSIUM SERUM 3.6 MEQ/L (3.5-5.1); SODIUM LEVEL 135 MEQ/L (136-145)
[2018-07-20] MEDS: **NOTE PATIENT COMMENT** MISC XX SCH (09:00)
[2018-07-20] MEDS: DOCUSATE SODIUM 100 MG CAP PO SCH (09:25)
[2018-07-20] MEDS: ACETAMINOPHEN TAB 650MG DOSE (2X325MG) PO PRN ×3 (09:26→18:35)
[2018-07-20] MEDS ORDERED: LIDOCAINE 2% MDV 20 ML VIAL As Ordered ONE (09:43)
[2018-07-20] MEDS ORDERED: ISOVUE-300 61% 50ML VIAL (Q9967) As Ordered ONE (09:43)
[2018-07-20] MEDS ORDERED: fentaNYL 100 MCG/2 ML INJECTION (J3010) As Ordered ONE ×2 (10:37→11:59)
[2018-07-20] MEDS ORDERED: MIDAZOLAM INJ 2 MG/2 ML VIAL (J2250) As Ordered ONE (10:37)
[2018-07-20 14:27] LABS: HEMATOCRIT 23.7 % (36.0-47.0); HEMOGLOBIN 7.5 g/dl (12.0-15.5)
[2018-07-20] MEDS ORDERED: fentaNYL 100 MCG/2 ML INJECTION (J3010) IV ONE (14:30)
[2018-07-20] MEDS ORDERED: fentaNYL 100 MCG/2 ML INJECTION (J3010) IV SCH (14:30)
[2018-07-20] MEDS ORDERED: MIDAZOLAM INJ 2 MG/2 ML VIAL (J2250) IV SCH (14:30)
[2018-07-20 14:39] LABS: PARTIAL THROMBOPLASTIN TIME 40.5 SECONDS (25.4-37.6)
[2018-07-20 15:00] LABS: ALBUMIN 2.3 GM/DL (3.2-5.2); BILIRUBIN,DIRECT 0.2 MG/DL (0.0-0.2); BILIRUBIN,TOTAL 0.4 MG/DL (0.2-1.0); TOTAL PROTEIN 6.4 GM/DL (6.4-8.2)
[2018-07-20 18:41] LABS: HEMATOCRIT 23.3 % (36.0-47.0); HEMOGLOBIN 7.3 g/dl (12.0-15.5)
[2018-07-20 18:53] LABS: PARTIAL THROMBOPLASTIN TIME 39.1 SECONDS (25.4-37.6)
[2018-07-20] MEDS: LIDOCAINE 5% (LIDODERM) PATCH TD SCH (21:00)
[2018-07-20] MEDS: ALTEPLASE RECOMBINANT 10 MG in NS 90 ML IV SCH (21:38)
[2018-07-20] MEDS: HEPARIN DRIP 25,000 UNITS in APPROPRIATE DILUENT 1 EA IV SCH (21:40)
[2018-07-21] VITALS (26 sets, daily range): BP systolic 118–154; BP diastolic 62–90
[2018-07-21] MEDS: NORCO, ANEXSIA 5/325MG TABLET (HYDROcodone/ACETAMINOPHEN) PO PRN ×6 (00:20→22:00)
[2018-07-21 00:23] LABS: HEMATOCRIT 21.3 % (36.0-47.0)
[2018-07-21 00:25] LABS: HEMOGLOBIN 6.7 g/dl (12.0-15.5)
[2018-07-21 00:37] LABS: PARTIAL THROMBOPLASTIN TIME 36.8 SECONDS (25.4-37.6)
[2018-07-21] MEDS: SODIUM CHLORIDE 0.9% INJ 10 ML SYR IV SCH ×2 (06:00→17:53)
[2018-07-21 06:29] LABS: HEMATOCRIT 25.9 % (36.0-47.0); HEMOGLOBIN 8.2 g/dl (12.0-15.5); MEAN CORPUSCULAR HEMOGLOBIN 26.9 pg (27.0-33.0); MEAN CORPUSCULAR HGB CONC 31.7 g/dl (32.0-36.5); MEAN CORPUSCULAR VOLUME 84.9 fl (80.0-96.0); PLATELET COUNT, AUTOMATED 122 10^3/uL (150-450); RED BLOOD COUNT 3.05 10^6/uL (4.00-5.40); WHITE BLOOD COUNT 15.7 10^3/uL (4.0-10.0)
[2018-07-21 06:48] LABS: PARTIAL THROMBOPLASTIN TIME 37.7 SECONDS (25.4-37.6)
[2018-07-21 06:56] LABS: BLOOD UREA NITROGEN 11 MG/DL (7-18); CALCIUM LEVEL 8.2 MG/DL (8.8-10.2); CARBON DIOXIDE LEVEL 26 MEQ/L (21-32); CHLORIDE LEVEL 97 MEQ/L (98-107); CREATININE FOR GFR 0.54 MG/DL (0.55-1.30); GLOMERULAR FILTRATION RATE > 60.0 (>45); GLUCOSE, FASTING 102 MG/DL (70-100); SODIUM LEVEL 131 MEQ/L (136-145)
[2018-07-21] MEDS: NS 1,000 ML IV SCH ×2 (08:02→17:52)
[2018-07-21] MEDS: **NOTE PATIENT COMMENT** MISC XX SCH (09:00)
[2018-07-21] MEDS: SENNA 8.6 MG TAB (SENOKOT) PO PRN (09:30)
[2018-07-21] MEDS: DOCUSATE SODIUM 100 MG CAP PO SCH (09:30)
[2018-07-21 12:05] LABS: HEMATOCRIT 25.1 % (36.0-47.0); HEMOGLOBIN 8.1 g/dl (12.0-15.5)
[2018-07-21 12:16] LABS: PARTIAL THROMBOPLASTIN TIME 37.9 SECONDS (25.4-37.6)
[2018-07-21 18:13] LABS: HEMATOCRIT 25.7 % (36.0-47.0); HEMOGLOBIN 8.2 g/dl (12.0-15.5)
[2018-07-21 18:44] LABS: PARTIAL THROMBOPLASTIN TIME 34.4 SECONDS (25.4-37.6)
[2018-07-21] MEDS: ALTEPLASE RECOMBINANT 10 MG in NS 90 ML IV SCH (22:15)
[2018-07-21] MEDS: HEPARIN DRIP 25,000 UNITS in APPROPRIATE DILUENT 1 EA IV SCH (22:17)
[2018-07-21] MEDS: LIDOCAINE 5% (LIDODERM) PATCH TD SCH (22:17)
[2018-07-21] MEDS: fentaNYL 100 MCG/2 ML INJECTION (J3010) IV PRN (23:05)
[2018-07-22] VITALS (20 sets, daily range): BP systolic 116–150; BP diastolic 62–90
[2018-07-22 00:15] LABS: HEMATOCRIT 26.2 % (36.0-47.0); HEMOGLOBIN 8.4 g/dl (12.0-15.5)
[2018-07-22 00:35] LABS: PARTIAL THROMBOPLASTIN TIME 34.6 SECONDS (25.4-37.6)
[2018-07-22 00:43] LABS: MAGNESIUM LEVEL 1.7 MG/DL (1.8-2.4); PHOSPHORUS LEVEL 2.1 MG/DL (2.5-4.9)
[2018-07-22 00:44] LABS: BLOOD UREA NITROGEN 13 MG/DL (7-18); CALCIUM LEVEL 8.1 MG/DL (8.8-10.2); CARBON DIOXIDE LEVEL 25 MEQ/L (21-32); CHLORIDE LEVEL 98 MEQ/L (98-107); CREATININE FOR GFR 0.64 MG/DL (0.55-1.30); GLOMERULAR FILTRATION RATE > 60.0 (>45); GLUCOSE, FASTING 106 MG/DL (70-100); SODIUM LEVEL 131 MEQ/L (136-145)
[2018-07-22] MEDS ORDERED: MAGNESIUM OXIDE 400 MG TAB (MAG-OX) PO ONE (01:30)
[2018-07-22] MEDS: NORCO, ANEXSIA 5/325MG TABLET (HYDROcodone/ACETAMINOPHEN) PO PRN ×6 (02:21→21:52)
[2018-07-22] MEDS: NS 1,000 ML IV SCH ×3 (02:26→21:47)
[2018-07-22] MEDS: fentaNYL 100 MCG/2 ML INJECTION (J3010) IV PRN ×7 (02:33→20:30)
[2018-07-22] MEDS: SODIUM CHLORIDE 0.9% INJ 10 ML SYR IV SCH ×2 (05:50→18:06)
[2018-07-22 06:12] LABS: HEMATOCRIT 26.1 % (36.0-47.0); HEMOGLOBIN 8.2 g/dl (12.0-15.5); MEAN CORPUSCULAR HEMOGLOBIN 26.9 pg (27.0-33.0); MEAN CORPUSCULAR HGB CONC 31.4 g/dl (32.0-36.5); MEAN CORPUSCULAR VOLUME 85.6 fl (80.0-96.0); PLATELET COUNT, AUTOMATED 135 10^3/uL (150-450); RED BLOOD COUNT 3.05 10^6/uL (4.00-5.40); WHITE BLOOD COUNT 13.9 10^3/uL (4.0-10.0)
[2018-07-22 06:24] LABS: PARTIAL THROMBOPLASTIN TIME 37.7 SECONDS (25.4-37.6)
[2018-07-22] MEDS: **NOTE PATIENT COMMENT** MISC XX SCH (09:00)
[2018-07-22] MEDS: DOCUSATE SODIUM 100 MG CAP PO SCH (09:31)
[2018-07-22] MEDS: SENNA 8.6 MG TAB (SENOKOT) PO PRN (10:07)
[2018-07-22 13:34] LABS: HEMATOCRIT 24.9 % (36.0-47.0)
[2018-07-22 13:48] LABS: PARTIAL THROMBOPLASTIN TIME 36.9 SECONDS (25.4-37.6)
[2018-07-22 18:17] LABS: HEMATOCRIT 25.8 % (36.0-47.0); HEMOGLOBIN 8.1 g/dl (12.0-15.5)
[2018-07-22 18:31] LABS: PARTIAL THROMBOPLASTIN TIME 36.2 SECONDS (25.4-37.6)
[2018-07-22] MEDS: LIDOCAINE 5% (LIDODERM) PATCH TD SCH ×2 (21:00→21:48)
[2018-07-22] MEDS: ALTEPLASE RECOMBINANT 10 MG in NS 90 ML IV SCH (21:46)
[2018-07-22] MEDS: HEPARIN DRIP 25,000 UNITS in APPROPRIATE DILUENT 1 EA IV SCH (21:47)
[2018-07-23] VITALS (24 sets, daily range): BP systolic 125–164; BP diastolic 66–92
[2018-07-23] MEDS: fentaNYL 100 MCG/2 ML INJECTION (J3010) IV PRN ×9 (00:11→23:34)
[2018-07-23 00:23] LABS: PARTIAL THROMBOPLASTIN TIME 40.6 SECONDS (25.4-37.6)
[2018-07-23 00:32] LABS: HEMATOCRIT 23.8 % (36.0-47.0); HEMOGLOBIN 7.5 g/dl (12.0-15.5)
[2018-07-23] MEDS: NORCO, ANEXSIA 5/325MG TABLET (HYDROcodone/ACETAMINOPHEN) PO PRN ×4 (02:22→21:49)
[2018-07-23 06:00] LABS: HEMATOCRIT 21.1 % (36.0-47.0); MEAN CORPUSCULAR HEMOGLOBIN 27.4 pg (27.0-33.0); MEAN CORPUSCULAR HGB CONC 32.2 g/dl (32.0-36.5); MEAN CORPUSCULAR VOLUME 85.1 fl (80.0-96.0); PLATELET COUNT, AUTOMATED 119 10^3/uL (150-450); RED BLOOD COUNT 2.48 10^6/uL (4.00-5.40); WHITE BLOOD COUNT 10.9 10^3/uL (4.0-10.0)
[2018-07-23] MEDS: SODIUM CHLORIDE 0.9% INJ 10 ML SYR IV SCH ×2 (06:00→19:07)
[2018-07-23 06:03] LABS: HEMOGLOBIN 6.8 g/dl (12.0-15.5)
[2018-07-23 06:14] LABS: PARTIAL THROMBOPLASTIN TIME 41.9 SECONDS (25.4-37.6)
[2018-07-23 06:25] LABS: BLOOD UREA NITROGEN 9 MG/DL (7-18); CALCIUM LEVEL 6.4 MG/DL (8.8-10.2); CARBON DIOXIDE LEVEL 20 MEQ/L (21-32); CHLORIDE LEVEL 111 MEQ/L (98-107); CREATININE FOR GFR 0.26 MG/DL (0.55-1.30); GLOMERULAR FILTRATION RATE > 60.0 (>45); GLUCOSE, FASTING 88 MG/DL (70-100); POTASSIUM SERUM 3.2 MEQ/L (3.5-5.1); SODIUM LEVEL 140 MEQ/L (136-145)
[2018-07-23] MEDS: NS 1,000 ML IV SCH (06:40)
[2018-07-23 08:33] LABS: HEMATOCRIT 23.9 % (36.0-47.0); HEMOGLOBIN 7.4 g/dl (12.0-15.5)
[2018-07-23] MEDS: DOCUSATE SODIUM 100 MG CAP PO SCH (08:41)
[2018-07-23] MEDS: BISACODYL 10 MG SUPP PR PRN (08:41)
[2018-07-23] MEDS: SENNA 8.6 MG TAB (SENOKOT) PO PRN (08:41)
[2018-07-23] MEDS: **NOTE PATIENT COMMENT** MISC XX SCH (08:54)
[2018-07-23 09:02] LABS: BLOOD UREA NITROGEN 10 MG/DL (7-18); CALCIUM LEVEL 8.5 MG/DL (8.8-10.2); CARBON DIOXIDE LEVEL 27 MEQ/L (21-32); CHLORIDE LEVEL 98 MEQ/L (98-107); CREATININE FOR GFR 0.48 MG/DL (0.55-1.30); GLOMERULAR FILTRATION RATE > 60.0 (>45); GLUCOSE, FASTING 112 MG/DL (70-100); POTASSIUM SERUM 3.9 MEQ/L (3.5-5.1); SODIUM LEVEL 133 MEQ/L (136-145)
[2018-07-23 15:05] LABS: HEMATOCRIT 27.6 % (36.0-47.0)
[2018-07-23 15:15] LABS: PARTIAL THROMBOPLASTIN TIME 32.4 SECONDS (25.4-37.6)
[2018-07-23] MEDS ORDERED: MIDAZOLAM INJ 2 MG/2 ML VIAL (J2250) As Ordered ONE ×2 (16:20→17:50)
[2018-07-23] MEDS ORDERED: fentaNYL 100 MCG/2 ML INJECTION (J3010) As Ordered ONE ×2 (16:20→17:50)
[2018-07-23] MEDS ORDERED: LIDOCAINE 2% MDV 20 ML VIAL As Ordered ONE (16:21)
[2018-07-23] MEDS ORDERED: ISOVUE-300 61% 50ML VIAL (Q9967) As Ordered ONE (16:21)
[2018-07-23] MEDS ORDERED: HEPARIN 1,000 UNITS/ML 10ML VIAL (FOR RADIOLOGY& DIALYSIS ONLY) As Ordered ONE (17:38)
[2018-07-23 19:14] LABS: HEMATOCRIT 29.2 % (36.0-47.0); HEMOGLOBIN 9.6 g/dl (12.0-15.5)
[2018-07-23 19:28] LABS: PARTIAL THROMBOPLASTIN TIME 92.4 SECONDS (25.4-37.6)
[2018-07-23 20:20] LABS: PARTIAL THROMBOPLASTIN TIME 64.1 SECONDS (25.4-37.6)
[2018-07-23] MEDS: LIDOCAINE 5% (LIDODERM) PATCH TD SCH (21:00)
[2018-07-23] MEDS: ALTEPLASE RECOMBINANT 10 MG in NS 90 ML IV SCH (21:28)
[2018-07-23] MEDS: HEPARIN DRIP 25,000 UNITS in APPROPRIATE DILUENT 1 EA IV SCH (21:29)
[2018-07-23] MEDS: SODIUM CHLORIDE 0.9% INJ 10 ML SYR IV PRN ×2 (23:34)
[2018-07-24] VITALS (19 sets, daily range): BP systolic 141–164; BP diastolic 72–92
[2018-07-24 00:02] LABS: PARTIAL THROMBOPLASTIN TIME 35.5 SECONDS (25.4-37.6)
[2018-07-24 00:08] LABS: HEMATOCRIT 28.4 % (36.0-47.0); HEMOGLOBIN 9.3 g/dl (12.0-15.5)
[2018-07-24] MEDS: fentaNYL 100 MCG/2 ML INJECTION (J3010) IV PRN ×10 (01:22→22:21)
[2018-07-24] MEDS: NORCO, ANEXSIA 5/325MG TABLET (HYDROcodone/ACETAMINOPHEN) PO PRN ×5 (03:12→23:15)
[2018-07-24] MEDS: SODIUM CHLORIDE 0.9% INJ 10 ML SYR IV SCH ×2 (06:26→17:58)
[2018-07-24 06:54] LABS: HEMATOCRIT 28.6 % (36.0-47.0); HEMOGLOBIN 9.1 g/dl (12.0-15.5); MEAN CORPUSCULAR HEMOGLOBIN 27.3 pg (27.0-33.0); MEAN CORPUSCULAR HGB CONC 31.8 g/dl (32.0-36.5); MEAN CORPUSCULAR VOLUME 85.9 fl (80.0-96.0); PLATELET COUNT, AUTOMATED 135 10^3/uL (150-450); RED BLOOD COUNT 3.33 10^6/uL (4.00-5.40); WHITE BLOOD COUNT 12.3 10^3/uL (4.0-10.0)
[2018-07-24 07:06] LABS: PARTIAL THROMBOPLASTIN TIME 36.2 SECONDS (25.4-37.6)
[2018-07-24 07:16] LABS: ALBUMIN 2.1 GM/DL (3.2-5.2); ALT/SGPT 14 U/L (12-78); BILIRUBIN,TOTAL 0.5 MG/DL (0.2-1.0); BLOOD UREA NITROGEN 9 MG/DL (7-18); CALCIUM LEVEL 8.8 MG/DL (8.8-10.2); CARBON DIOXIDE LEVEL 26 MEQ/L (21-32); CHLORIDE LEVEL 98 MEQ/L (98-107); CREATININE FOR GFR 0.54 MG/DL (0.55-1.30); GLOMERULAR FILTRATION RATE > 60.0 (>45); GLUCOSE, FASTING 122 MG/DL (70-100); POTASSIUM SERUM 3.6 MEQ/L (3.5-5.1); SODIUM LEVEL 134 MEQ/L (136-145); TOTAL PROTEIN 5.9 GM/DL (6.4-8.2)
[2018-07-24] MEDS: **NOTE PATIENT COMMENT** MISC XX SCH (09:00)
[2018-07-24] MEDS: SENNA 8.6 MG TAB (SENOKOT) PO PRN (09:32)
[2018-07-24] MEDS: DOCUSATE SODIUM 100 MG CAP PO SCH (09:32)
[2018-07-24] MEDS ORDERED: LIDOCAINE 2% MDV 20 ML VIAL As Ordered ONE (11:30)
[2018-07-24] MEDS ORDERED: fentaNYL 100 MCG/2 ML INJECTION (J3010) As Ordered ONE (11:30)
[2018-07-24] MEDS ORDERED: ISOVUE-300 61% 50ML VIAL (Q9967) As Ordered ONE (11:30)
[2018-07-24] MEDS ORDERED: MIDAZOLAM INJ 2 MG/2 ML VIAL (J2250) As Ordered ONE (11:30)
[2018-07-24] MEDS ORDERED: HEPARIN 1,000 UNITS/ML 10ML VIAL (FOR RADIOLOGY& DIALYSIS ONLY) As Ordered ONE (11:58)
[2018-07-24] MEDS: HEPARIN DRIP 25,000 UNITS in APPROPRIATE DILUENT 1 EA IV SCH (13:00)
[2018-07-24] MEDS ORDERED: HEPARIN SOD (PORCINE) 5000 UNITS/ML VIAL IV PRN (16:15)
--- NOTE | 2018-07-24 21:15 | IPNPDOC ---
Subjective General Date/Time Seen The patient was seen on 07/24/18 at 11:43. Subject Chief Complaint/History The patient is a 63-year-old female admitted with a reason for visit of DVT. Patient has some improvement of swelling of her left lower extremity but with continued pelvic and sacral pain. Current Medications Current Medications Current Medications Acetaminophen (Tylenol Tab) 650 mg Q6HP PRN PO PAIN / FEVER Last administered on 07/20/18at 18:35; Start 07/19/18 at 10:30 Acetaminophen/ Hydrocodone Bitart (Anderson, Anexsia 5/325) 1 tab Q4HP PRN PO MILD/MODERATE PAIN (PS 1-7) Last administered on 07/24/18at 18:39; Start 07/19/18 at 05:00 Acetaminophen/ Hydrocodone Bitart (Anderson, Anexsia 5/325) 1 tab Q6HP PRN PO MILD/MODERATE PAIN (PS 1-7) Last administered on 07/19/18at 00:04; Start 07/16/18 at 23:45; Stop 07/19/18 at 05:00; Status DC Alteplase, Recombinant 10 mg/ Sodium Chloride 100 ml @ 2.5 mls/hr Q24H IV Last administered on 07/23/18at 21:28; Start 07/17/18 at 21:00; Stop 07/24/18 at 12:35; Status DC Alteplase, Recombinant 25 mg/ Sodium Chloride 250 ml @ 2.5 mls/hr Q24H IV Last administered on 07/16/18at 22:30; Start 07/16/18 at 21:00; Stop 07/18/18 at 16:53; Status DC Bisacodyl (Dulcolax Suppository) 10 mg 1615 PRN PA NO RESULTS FROM FIRST SUPP; Start 07/19/18 at 15:30; Stop 07/19/18 at 17:00; Status DC Bisacodyl (Dulcolax Suppository) 10 mg DAILYPRN PRN PA CONSTIPATION Last administered on 07/23/18at 08:41; Start 07/23/18 at 08:30 Docusate Sodium (Colace) 100 mg DAILY PO Last administered on 07/24/18at 09:32; Start 07/17/18 at 09:00 Fentanyl Citrate (Sublimaze) 25 mcg Q1HP PRN IV PAIN Last administered on 07/24/18at 18:02; Start 07/21/18 at 22:30 Fentanyl Citrate (Sublimaze) 50 mcg ASDIRECTED IV ; Start 07/20/18 at 14:30; Stop 07/20/18 at 15:30; Status DC Heparin Sodium (Heparin (Flush)) 200 units ASDIRECTED PRN IV SEE LABEL COMMENTS Last administered on 07/23/18at 23:34; Start 07/16/18 at 23:45 Heparin Sodium (Heparin (Flush)) 200 units PICC IV Last administered on 07/24/18at 17:57; Start 07/17/18 at 06:00 Heparin Sodium (Porcine) (Heparin) ASDIRECTED PRN IV SEE LABEL COMMENTS; Start 07/24/18 at 12:45 Heparin Sodium (Porcine) (Heparin) ASDIRECTED PRN IV SEE LABEL COMMENTS; Start 07/24/18 at 16:15; Stop 07/24/18 at 16:15; Status DC Heparin Sodium (Porcine) 23936 units/IV Miscellaneous Supplies 250 ml @ 11 mls/hr [id number] IV Last administered on 07/24/18at 13:00; Start 07/24/18 at 13:00 Heparin Sodium (Porcine) 85849 units/IV Miscellaneous Supplies 250 ml @ 6 mls/hr Q24H IV Last administered on 07/23/18at 21:29; Start 07/16/18 at 21:00; Stop 07/24/18 at 12:35; Status DC Home Med (Med Rec Complete!) ASDIRECTED XX ; Start 07/16/18 at 23:00; Stop 07/16/18 at 23:00; Status DC Lidocaine (Lidoderm Patch) 1 patch QHS TD Last administered on 07/23/18at 21:00; Start 07/19/18 at 21:00 Midazolam HCl (Versed) 1 mg ASDIRECTED IV ; Start 07/20/18 at 14:30; Stop 07/20/18 at 15:30; Status DC Miscellaneous (Unresolved Clarification Entry) SEE LABEL COMMENTS DAILY XX ; Start 07/23/18 at 09:00; Stop 07/23/18 at 09:00; Status DC Non-Formulary Medication ( See Comment Field Below ) REMOVE LIDODERM PATCH DAILY XX Last administered on 07/24/18 09:00; Start 07/20/18 at 09:00 Non-Formulary Medication (Heparin Iv Rate Change Documentation ml/ Hr) ASDIRECTED XX Last administered on 07/24/18at 15:45; Start 07/24/18 at 16:15; St op 07/29/18 at 16:14 Senna (Senokot) 1 tab DAILYPRN PRN PO CONSTIPATION Last administered on 07/24/18 t 09:32; Start 07/17/18 at 13:30 Sodium Biphosphate/ Sodium Phosphate (Fleet Enema) 1 ea ONCE PRN PA NO RESULTS FROM DULCOLAX SUPPS; Start 07/19/18 at 18:00 Sodium Chloride 1,000 ml @ 100 mls/hr Q10H IV Last administered on 07/23/18 06:40; Start 07/18/18 at 19:15; Stop 07/23/18 at 18:46; Status DC Sodium Chloride (Saline Lock Flush) 2 ml ASDIRECTED PRN IV SEE LABEL COMMENTS; Start 07/16/18 at 22:30; Stop 07/18/18 at 15:17; Status DC Sodium Chloride (Saline Lock Flush) 2 ml SLF IV Last administered on 07/18/18 05:42; Start 07/17/18 at 06:00; Stop 07/18/18 at 15:17; Status DC Sodium Chloride (Saline Lock Flush) 10 ml ASDIRECTED PRN IV SEE LABEL COMMENTS Last administered on 07/23/18 23:34; Start 07/16/18 at 23:45 Sodium Chloride (Saline Lock Flush) 10 ml PICC IV Last administered on 07/24/18 17:58; Start 07/17/18 at 06:00 Allergies Coded Allergies: No Known Drug Allergy (Verified Allergy, Unknown, 12/06/17) VITAL SIGNS VITAL SIGNS Vital Signs Date Time Temp Pulse Resp B/P (MAP) Pulse Ox O2 Delivery O2 Flow Rate FiO2 07/24/18 20:00 99.0 110 16 146/86 (106) 96 07/24/18 18:39 16 07/24/18 18:07 16 07/24/18 18:02 16 07/24/18 18:00 123 16 147/87 (107) 97 07/24/18 17:57 16 07/24/18 17:00 110 16 152/89 (110) 97 07/24/18 16:00 100.1 106 16 164/90 (114) 97 07/24/18 15:34 16 07/24/18 15:00 109 16 145/80 (101) 98 07/24/18 14:15 16 07/24/18 14:00 126 16 159/85 (109) 100 07/24/18 13:45 16 07/24/18 13:00 99.8 120 16 156/88 (110) 100 07/24/18 11:00 114 16 142/82 (102) 98 07/24/18 10:11 135 16 158/92 96 96 07/24/18 10:03 135 158/92 96 07/24/18 10:00 132 16 142/84 (103) 98 07/24/18 09:33 129 24 158/92 07/24/18 09:00 118 16 158/92 (114) 98 07/24/18 08:56 135 158/96 96 07/24/18 08:51 16 07/24/18 08:00 100.7 107 16 143/74 (97) 98 07/24/18 07:00 107 147/77 (100) 07/24/18 06:26 20 07/24/18 06:00 118 145/78 (100) 07/24/18 05:00 109 141/72 (95) 07/24/18 04:12 16 07/24/18 04:00 99.8 107 18 149/72 (97) 97 07/24/18 03:12 20 07/24/18 03:00 119 158/81 (106) 07/24/18 02:00 103 155/77 (103) 07/24/18 01:22 20 07/24/18 01:00 111 141/79 (99) 07/24/18 00:00 99.0 108 20 151/81 (104) 97 07/24/18 00:00 108 151/81 (104) 07/23/18 23:34 20 07/23/18 23:00 109 135/79 (97) 07/23/18 22:00 117 149/78 (101) 07/23/18 21:49 20 Intake & Output 07/24/18 06:00 Intake Total 2642.5 ml Output Total 2500 ml Balance 142.5 ml Laboratory Tests 07/23/18 23:36: Hemoglobin 9.3L, Hematocrit 28.4L, Activated Partial Thromboplast Time 35.5, Fibrinogen 468H 07/24/18 06:25: Hemoglobin 9.1L, Hematocrit 28.6L, Activated Partial Thromboplast Time 36.2, Fibrinogen 481H, White Blood Count 12.3H, Red Blood Count 3.33L, Mean Corpuscular Volume 85.9, Mean Corpuscular Hemoglobin 27.3, Mean Corpuscular Hemoglobin Concent 31.8L, Red Cell Distribution Width 16.9H, Platelet Count 135L, Nucleated Red Blood Cells % (auto) 0.0, Blood Urea Nitrogen 9, Creatinine 0.54L, Sodium Level 134L, Potassium Level 3.6, Chloride Level 98, Carbon Dioxide Level 26, Calcium Level 8.8, Aspartate Amino Transf (AST/SGOT) 38H, Alanine Aminotransferase (ALT/SGPT) 14, Alkaline Phosphatase 386H, Total Bilirubin 0.5, Total Protein 5.9L, Albumin 2.1L, Anion Gap 10, Glomerular Filtration Rate > 60.0, Fasting Glucose 122H, Albumin/Globulin Ratio 0.55L 07/24/18 13:20: Activated Partial Thromboplast Time 136.0*H Current Medications Medications (Trade) Dose Ordered Sig/Dmitry Route PRN Reason Start Time Stop Time Status Last Admin Dose Admin Acetaminophen (Tylenol Tab) 650 mg Q6HP PRN PO PAIN / FEVER 07/19/18 10:30 07/20/18 18:35 Acetaminophen/ Hydrocodone Bitart (Anderson, Anexsia 5/325) 1 tab Q4HP PRN PO MILD/MODERATE PAIN (PS 1-7) 07/19/18 05:00 07/24/18 18:39 Bisacodyl (Dulcolax Suppository) 10 mg DAILYPRN PRN PA CONSTIPATION 07/23/18 08:30 07/23/18 08:41 Docusate Sodium (Colace) 100 mg DAILY PO 07/17/18 09:00 07/24/18 09:32 Fentanyl Citrate (Sublimaze) 25 mcg Q1HP PRN IV PAIN 07/21/18 22:30 07/24/18 18:02 Heparin Sodium (Heparin (Flush)) 200 units ASDIRECTED PRN IV SEE LABEL COMMENTS 07/16/18 23:45 07/23/18 23:34 Heparin Sodium (Porcine) 43647 units/IV Miscellaneous Supplies 250 ml @ 11 mls/hr [id number] IV 07/24/18 13:00 07/24/18 13:00 Lidocaine (Lidoderm Patch) 1 patch QHS TD 07/19/18 21:00 07/23/18 21:00 Non-Formulary Medication ( See Comment Field Below ) REMOVE LIDODERM PATCH DAILY XX 07/20/18 09:00 07/24/18 09:00 Non-Formulary Medication (Heparin Iv Rate Change Documentation ml/ Hr) ASDIRECTED XX 07/24/18 16:15 07/29/18 16:14 07/24/18 15:45 Senna (Senokot) 1 tab DAILYPRN PRN PO CONSTIPATION 07/17/18 13:30 07/24/18 09:32 Sodium Chloride (Saline Lock Flush) 10 ml ASDIRECTED PRN IV SEE LABEL COMMENTS 07/16/18 23:45 07/23/18 23:34 Laboratory Tests 07/22/18 23:51 07/23/18 05:44 Red Blood Count 2.48 L, Mean Corpuscular Volume 85.1, Mean Corpuscular Hemoglobin 27.4, Mean Corpuscular Hemoglobin Concent 32.2, Red Cell Distribution Width 17.4 H, Calcium Level 6.4 #L 07/23/18 08:19 Calcium Level 8.5 #L 07/23/18 14:45 07/23/18 19:06 07/23/18 23:36 07/24/18 06:25 Red Blood Count 3.33 L, Mean Corpuscular Volume 85.9, Mean Corpuscular Hemoglobin 27.3, Mean Corpuscular Hemoglobin Concent 31.8 L, Red Cell Distribution Width 16.9 H, Calcium Level 8.8, Aspartate Amino Transf (AST/SGOT) 38 H, Alanine Aminotransferase (ALT/SGPT) 14, Alkaline Phosphatase 386 H, Total Bilirubin 0.5, Total Protein 5.9 L, Albumin 2.1 L Objective Physical Examination General Exam: Positive: Alert, Cooperative, Moderate Distress Eye Exam: Positive: PERRLA, Conjunctiva & lids normal, EOMI ENT Exam: Positive: Atraumatic, Mucous membr. moist/pink, Pharynx Normal, Ton rani Midline, Nares Patent, Ext Auditory Canal Nml, Pinna Normal Neck Exam: Positive: Supple, +2 carotid pulse wo bruit; Negative: JVD, thyromegaly, Lymphadenopathy Chest Exam: Positive: Clear to auscultation, Normal air movement; Negative: Rales, Rhonchi, Wheezing, Diminished Heart Exam: Positive: Tachycardic, Regular Rhythm; Negative: Bradycardic, Irregular Rhythm, Gallops, Murmurs, Rubs Telemetry: Positive: No significant arrhythmia, Sinus Abdomen Exam: Positive: Normal bowel sounds, Soft; Negative: BS Hyperactive, BS Hypoactive, Tenderness, Hepatospenomegaly, Mass, Hernia Female Exam: Positive: Nl Ext Genitalia Extremity Exam: Positive: Cyanosis, Edema, Normal pulses, Tenderness, Swelling; Negative: Clubbing Skin Exam: Positive: Nl turgor and temperature; Negative: Rash, Breakdown, Lesion, Pruritus Neuro Exam: Positive: Normal Gait, Normal Speech, Strength at 5/5 X4 ext, Normal Tone, Sensation Intact, Cranial Nerves 3-12 NL, Reflexes 2+ Psych Exam: Positive: Mental status NL, Mood NL, Memory Intact, Oriented x 3; Negative: Anxiety Assessment/Plan Assessment 63-year-old female with extensive left lower extremity iliofemoral DVT who has completed thrombolysis of the left lower extremity. Plan Patient will continue on a heparin drip and be converted to full anticoagulation with Coumadin. Patient will undergo a Port-A-Cath placement for chemotherapy prior to being discharged home. Patient will require pain management consult for continued pain issues. Patient was scheduled for chemotherapy today which was canceled and will be scheduled for next week. Patient will require ev aluation by physical therapy for treatment and consideration for possible rehabilitation placement. Matteo Sandoval MD Jul 24, 2018 21:15
[2018-07-24] MEDS: SODIUM CHLORIDE 0.9% INJ 10 ML SYR IV PRN (22:21)
[2018-07-24] MEDS: HEPARIN SOD (PORCINE) 5000 UNITS/ML VIAL IV PRN (22:54)
[2018-07-25] VITALS (7 sets, daily range): BP systolic 121–148; BP diastolic 63–83
[2018-07-25] MEDS: LIDOCAINE 5% (LIDODERM) PATCH TD SCH ×2 (01:24→21:00)
[2018-07-25] MEDS: fentaNYL 100 MCG/2 ML INJECTION (J3010) IV PRN ×2 (01:25→03:15)
[2018-07-25] MEDS: NORCO, ANEXSIA 5/325MG TABLET (HYDROcodone/ACETAMINOPHEN) PO PRN ×5 (04:55→20:02)
[2018-07-25] MEDS: BISACODYL 10 MG SUPP PR PRN (05:05)
[2018-07-25 05:08] LABS: HEMATOCRIT 24.4 % (36.0-47.0); HEMOGLOBIN 7.8 g/dl (12.0-15.5); MEAN CORPUSCULAR HEMOGLOBIN 27.2 pg (27.0-33.0); PLATELET COUNT, AUTOMATED 139 10^3/uL (150-450); RED BLOOD COUNT 2.87 10^6/uL (4.00-5.40); WHITE BLOOD COUNT 12.5 10^3/uL (4.0-10.0)
[2018-07-25 05:38] LABS: ALBUMIN 2.2 GM/DL (3.2-5.2); ALT/SGPT 15 U/L (12-78); BILIRUBIN,TOTAL 0.4 MG/DL (0.2-1.0); BLOOD UREA NITROGEN 9 MG/DL (7-18); CALCIUM LEVEL 8.8 MG/DL (8.8-10.2); CARBON DIOXIDE LEVEL 28 MEQ/L (21-32); CHLORIDE LEVEL 97 MEQ/L (98-107); CREATININE FOR GFR 0.55 MG/DL (0.55-1.30); GLOMERULAR FILTRATION RATE > 60.0 (>45); GLUCOSE, FASTING 106 MG/DL (70-100); POTASSIUM SERUM 3.9 MEQ/L (3.5-5.1); SODIUM LEVEL 133 MEQ/L (136-145); TOTAL PROTEIN 6.4 GM/DL (6.4-8.2)
[2018-07-25] MEDS: HEPARIN SOD (PORCINE) 5000 UNITS/ML VIAL IV PRN ×3 (05:45→21:37)
[2018-07-25] MEDS: SODIUM CHLORIDE 0.9% INJ 10 ML SYR IV SCH ×2 (05:46→17:58)
[2018-07-25] MEDS: **NOTE PATIENT COMMENT** MISC XX SCH (09:00)
[2018-07-25] MEDS: SENNA 8.6 MG TAB (SENOKOT) PO PRN (09:34)
[2018-07-25] MEDS: DOCUSATE SODIUM 100 MG CAP PO SCH (09:34)
--- NOTE | 2018-07-25 10:10 | CR ---
DATE OF CONSULTATION: 07/25/2018 REFERRING PROVIDER: Caleb Sandoval MD CHIEF COMPLAINT: 1. Pelvic pain. 2. History of metastatic endometrial cancer ([place]). HISTORY OF PRESENT ILLNESS: Riya is a 63-year-old female who was admitted due to deep venous thrombosis (DVT) left lower extremity who completed thrombolysis. Apparently, her pelvic pain has exacerbated during her stay. Currently on intravenous (IV) fentanyl for acute pain. I spoke with primary care nurse in intensive care unit (ICU) today. It would be my recommendation to try two hydrocodone tablets every 4 hours for pain levels 5-10 over 10 Visual Analogue Scale (VAS). Refer to oncology for ongoing chronic cancer pain treatment per their discretion. She is following with Dr. Arana at our cancer center. Please do not hesitate to contact me if you need further treatment recommendations for exacerbation of her chronic pain issues not associated with DVT during her hospital stay. MTDValorie
[2018-07-25] MEDS: HEPARIN DRIP 25,000 UNITS in APPROPRIATE DILUENT 1 EA IV SCH (13:11)
[2018-07-25] MEDS: BISACODYL 5 MG TAB PO SCH (20:01)
--- NOTE | 2018-07-25 21:56 | IPNPDOC ---
Subjective General Date/Time Seen The patient was seen on 07/25/18 at 17:33. Subject Chief Complaint/History The patient is a 63-year-old female admitted with a reason for visit of DVT. Patient notes swelling in left lower extremity has decreased and has less pain in her left lower extremity. Patient continues with pain in her sacral and pelvic region. Current Medications Current Medications Current Medications Acetaminophen (Tylenol Tab) 650 mg Q6HP PRN PO PAIN / FEVER Last administered on 07/20/18at 18:35; Start 07/19/18 at 10:30 Acetaminophen/ Hydrocodone Bitart ([place], Anexsia 5/325) 1 tab Q4HP PRN PO MILD/MODERATE PAIN (PS 1-7) Last administered on 07/25/18at 20:02; Start 07/19/18 at 05:00 Acetaminophen/ Hydrocodone Bitart ([place], Anexsia 5/325) 1 tab Q6HP PRN PO MILD/MODERATE PAIN (PS 1-7) Last administered on 07/19/18at 00:04; Start 07/16/18 at 23:45; Stop 07/19/18 at 05:00; Status DC Acetaminophen/ Hydrocodone Bitart ([place], Anexsia 5/325) 2 tab Q4HP PRN PO SEVERE PAIN (PS 8-10) Last administered on 07/25/18at 13:32; Start 07/25/18 at 09:30 Alteplase, Recombinant 10 mg/ Sodium Chloride 100 ml @ 2.5 mls/hr Q24H IV Last administered on 07/23/18at 21:28; Start 07/17/18 at 21:00; Stop 07/24/18 at 12:35; Status DC Alteplase, Recombinant 25 mg/ Sodium Chloride 250 ml @ 2.5 mls/hr Q24H IV Last administered on 07/16/18at 22:30; Start 07/16/18 at 21:00; Stop 07/18/18 at 16:53; Status DC Bisacodyl (Dulcolax Suppository) 10 mg 1615 PRN ID NO RESULTS FROM FIRST SUPP; Start 07/19/18 at 15:30; Stop 07/19/18 at 17:00; Status DC Bisacodyl (Dulcolax Suppository) 10 mg DAILYPRN PRN ID CONSTIPATION Last administered on 07/25/18 05:05; Start 07/23/18 at 08:30 Bisacodyl (Dulcolax Tab) 10 mg BID PO Last administered on 07/25/18 20:01; Start 07/25/18 at 21:00 Docusate Sodium (Colace) 100 mg DAILY PO Last administered on 07/25/18 09:34; Start 07/17/18 at 09:00 Fentanyl Citrate (Sublimaze) 25 mcg Q1HP PRN IV PAIN Last administered on 07/25/18 03:15; Start 07/21/18 at 22:30 Fentanyl Citrate (Sublimaze) 50 mcg ASDIRECTED IV ; Start 07/20/18 at 14:30; Stop 07/20/18 at 15:30; Status DC Heparin Sodium (Heparin (Flush)) 200 units ASDIRECTED PRN IV SEE LABEL COMMENTS Last administered on 07/24/18 22:21; Start 07/16/18 at 23:45 Heparin Sodium (Heparin (Flush)) 200 units PICC IV Last administered on 07/25/18 17:57; Start 07/17/18 at 06:00 Heparin Sodium (Porcine) (Heparin) ASDIRECTED PRN IV SEE LABEL COMMENTS Last administered on 07/25/18 21:37; Start 07/24/18 at 12:45 Heparin Sodium (Porcine) (Heparin) ASDIRECTED PRN IV SEE LABEL COMMENTS; Start 07/24/18 at 16:15; Stop 07/24/18 at 16:15; Status DC Heparin Sodium (Porcine) 94147 units/IV Miscellaneous Supplies 250 ml @ 11 mls/hr [id number] IV Last administered on 07/25/18 13:11; Start 07/24/18 at 13:00 Heparin Sodium (Porcine) 74678 units/IV Miscellaneous Supplies 250 ml @ 6 mls/hr Q24H IV Last administered on 07/23/18 21:29; Start 07/16/18 at 21:00; Stop 07/24/18 at 12:35; Status DC Home Med (Med Rec Complete!) ASDIRECTED XX ; Start 07/16/18 at 23:00; Stop 07/16/18 at 23:00; Status DC Lidocaine (Lidoderm Patch) 1 patch QHS TD Last administered on 2/6/19at 01:24; Start 07/19/18 at 21:00 Midazolam HCl (Versed) 1 mg ASDIRECTED IV ; Start 07/20/18 at 14:30; Stop 07/20/18 at 15:30; Status DC Miscellaneous (Unresolved Clarification Entry) SEE LABEL COMMENTS DAILY XX ; Start 07/23/18 at 09:00; Stop 07/23/18 at 09:00; Status DC Miscellaneous (Unresolved Clarification Entry) SEE LABEL COMMENTS DAILY XX ; Start 07/25/18 at 09:00; Stop 07/25/18 at 10:30; Status DC Non-Formulary Medication ( See Comment Field Below ) REMOVE LIDODERM PATCH DAILY XX Last administered on 07/25/18at 09:00; Start 07/20/18 at 09:00 Non-Formulary Medication (Heparin Iv Rate Change Documentation ml/ Hr) ASDIRECTED XX Last administered on 07/25/18at 21:40; Start 07/24/18 at 16:15; Stop 07/29/18 at 16:14 Senna (Senokot) 1 tab DAILYPRN PRN PO CONSTIPATION Last administered on 07/25/18at 09:34; Start 07/17/18 at 13:30; Stop 07/25/18 at 17:36; Status DC Sodium Biphosphate/ Sodium Phosphate (Fleet Enema) 1 ea ONCE PRN ID NO RESULTS FROM DULCOLAX SUPPS Last administered on 07/25/18at 07:41; Start 07/19/18 at 18:00 Sodium Chloride 1,000 ml @ 100 mls/hr Q10H IV Last administered on 07/23/18at 06:40; Start 07/18/18 at 19:15; Stop 07/23/18 at 18:46; Status DC Sodium Chloride (Saline Lock Flush) 2 ml ASDIRECTED PRN IV SEE LABEL COMMENTS; Start 07/16/18 at 22:30; Stop 07/18/18 at 15:17; Status DC Sodium Chloride (Saline Lock Flush) 2 ml SLF IV Last administered on 07/18/18at 05:42; Start 07/17/18 at 06:00; Stop 07/18/18 at 15:17; Status DC Sodium Chloride (Saline Lock Flush) 10 ml ASDIRECTED PRN IV SEE LABEL COMMENTS Last administered on 2/5/19at 22:21; Start 07/16/18 at 23:45 Sodium Chloride (Saline Lock Flush) 10 ml PICC IV Last administered on 07/25/18at 17:58; Start 07/17/18 at 06:00 Allergies Coded Allergies: No Known Drug Allergy (Verified Allergy, Unknown, 12/06/17) VITAL SIGNS VITAL SIGNS Vital Signs Date Time Temp Pulse Resp B/P (MAP) Pulse Ox O2 Delivery O2 Flow Rate FiO2 07/25/18 20:02 16 07/25/18 18:29 16 07/25/18 18:00 100.7 107 16 148/77 (100) 98 07/25/18 17:59 16 07/25/18 16:00 98.0 97 14 121/63 (82) 98 07/25/18 13:32 16 07/25/18 12:00 99.8 121 16 136/81 (99) 98 07/25/18 10:01 16 07/25/18 09:31 22 95 07/25/18 08:00 99.3 116 16 137/83 (101) 98 07/25/18 04:55 22 07/25/18 04:00 99.0 110 20 148/72 (97) 97 07/25/18 03:25 20 07/25/18 03:15 22 07/25/18 01:25 22 07/25/18 00:00 98.6 136 18 139/81 (100) 97 07/24/18 23:15 17 07/24/18 22:21 20 Intake & Output 07/25/18 06:00 Intake Total 734 ml Output Total 2025 ml Balance -1291 ml Laboratory Tests 07/24/18 21:56: Activated Partial Thromboplast Time 40.3H 07/25/18 04:50: Activated Partial Thromboplast Time 54.3H, White Blood Count 12.5H, Red Blood Count 2.87L, Hemoglobin 7.8L, Hematocrit 24.4L, Mean Corpuscular Volume 85.0, Mean Corpuscular Hemoglobin 27.2, Mean Corpuscular Hemoglobin Concent 32.0, Red Cell Distribution Width 16.8H, Platelet Count 139L, Nucleated Red Blood Cells % (auto) 0.0, Blood Urea Nitrogen 9, Creatinine 0.55, Sodium Level 133L, Potassium Level 3.9, Chloride Level 97L, Carbon Dioxide Level 28, Calcium Level 8.8, Aspartate Amino Transf (AST/SGOT) 40H, Alanine Aminotransferase (ALT/SGPT) 15, Alkaline Phosphatase 389H, Total Bilirubin 0.4, Total Protein 6.4, Albumin 2.2L, Anion Gap 8, Glomerular Filtration Rate > 60.0, Fasting Glucose 106H, Albumin/Globulin Ratio 0.52L 07/25/18 12:50: Activated Partial Thromboplast Time 59.8H 07/25/18 20:58: Activated Partial Thromboplast Time 51.8H Current Medications Medications (Trade) Dose Ordered Sig/Dmitry Route PRN Reason Start Time Stop Time Status Last Admin Dose Admin Acetaminophen (Tylenol Tab) 650 mg Q6HP PRN PO PAIN / FEVER 07/19/18 10:30 07/20/18 18:35 Acetaminophen/ Hydrocodone Bitart ([place], Anexsia 5/325) 2 tab Q4HP PRN PO SEVERE PAIN (PS 8-10) 07/25/18 09:30 07/25/18 13:32 Bisacodyl (Dulcolax Suppository) 10 mg DAILYPRN PRN ID CONSTIPATION 07/23/18 08:30 07/25/18 05:05 Bisacodyl (Dulcolax Tab) 10 mg BID PO 07/25/18 21:00 07/25/18 20:01 Docusate Sodium (Colace) 100 mg DAILY PO 07/17/18 09:00 07/25/18 09:34 Fentanyl Citrate (Sublimaze) 25 mcg Q1HP PRN IV PAIN 07/21/18 22:30 07/25/18 03:15 Heparin Sodium (Heparin (Flush)) 200 units ASDIRECTED PRN IV SEE LABEL COMMENTS 07/16/18 23:45 07/24/18 22:21 Heparin Sodium (Porcine) (Heparin) ASDIRECTED PRN IV SEE LABEL COMMENTS 07/24/18 12:45 07/25/18 21:37 Heparin Sodium (Porcine) 99332 units/IV Miscellaneous Supplies 250 ml @ 11 mls/hr [id number] IV 07/24/18 13:00 07/25/18 13:11 Lidocaine (Lidoderm Patch) 1 patch QHS TD 07/19/18 21:00 07/25/18 01:24 Non-Formulary Medication ( See Comment Field Below ) REMOVE LIDODERM PATCH DAILY XX 07/20/18 09:00 07/25/18 09:00 Non-Formulary Medication (Heparin Iv Rate Change Documentation ml/ Hr) ASDIRECTED XX 07/24/18 16:15 07/29/18 16:14 07/25/18 21:40 Sodium Biphosphate/ Sodium Phosphate (Fleet Enema) 1 ea ONCE PRN ID NO RESULTS FROM DULCOLAX SUPPS 07/19/18 18:00 07/25/18 07:41 Sodium Chloride (Saline Lock Flush) 10 ml ASDIRECTED PRN IV SEE LABEL COMMENTS 07/16/18 23:45 07/24/18 22:21 Laboratory Tests 07/23/18 23:36 07/24/18 06:25 Red Blood Count 3.33 L, Mean Corpuscular Volume 85.9, Mean Corpuscular Hemoglobin 27.3, Mean Corpuscular Hemoglobin Concent 31.8 L, Red Cell Distribution Width 16.9 H, Calcium Level 8.8, Aspartate Amino Transf (AST/SGOT) 38 H, Alanine Aminotransferase (ALT/SGPT) 14, Alkaline Phosphatase 386 H, Total Bilirubin 0.5, Total Protein 5.9 L, Albumin 2.1 L 07/25/18 04:50 Red Blood Count 2.87 L, Mean Corpuscular Volume 85.0, Mean Corpuscular Hemoglobin 27.2, Mean Corpuscular Hemoglobin Concent 32.0, Red Cell Distribution Width 16.8 H, Calcium Level 8.8, Aspartate Amino Transf (AST/SGOT) 40 H, Alanine Aminotransferase (ALT/SGPT) 15, Alkaline Phosphatase 389 H, Total Bilirubin 0.4, Total Protein 6.4, Albumin 2.2 L Objective Physical Examination General Exam: Positive: Alert, Cooperative, Moderate Distress Eye Exam: Positive: PERRLA, Conjunctiva & lids normal, EOMI ENT Exam: Positive: Atraumatic, Mucous membr. moist/pink, Pharynx Normal, Tongue Midline, Nares Patent, Ext Auditory Canal Nml, Pinna Normal Neck Exam: Positive: Supple, +2 carotid pulse wo bruit; Negative: JVD, thyromegaly, Lymphadenopathy Chest Exam: Positive: Clear to auscultation, Normal air movement; Negative: Rales, Rhonchi, Wheezing, Diminished Heart Exam: Positive: Tachycardic, Regular Rhythm; Negative: Bradycardic, Irregular Rhythm, Gallops, Murmurs, Rubs Telemetry: Positive: No significant arrhythmia, Sinus Abdomen Exam: Positive: Normal bowel sounds, Soft; Negative: BS Hyperactive, BS Hypoactive, Tenderness, Hepatospenomegaly, Mass, Hernia Female Exam: Positive: Nl Ext Genitalia Extremity Exam: Positive: Cyanosis, Edema, Normal pulses, Tenderness, Swelling; Negative: Clubbing Skin Exam: Positive: Nl turgor and temperature; Negative: Rash, Breakdown, Lesion, Pruritus Neuro Exam: Positive: Normal Gait, Normal Speech, Strength at 5/5 X4 ext, Normal Tone, Sensation Intact, Cranial Nerves 3-12 NL, Reflexes 2+ Psych Exam: Positive: Mental status NL, Mood NL, Memory Intact, Oriented x 3; Negative: Anxiety Assessment/Plan Assessment Patient is 63-year-old female with endometrial cancer and left lower extremity DVT who underwent thrombolysis and iliac vein angioplasty and stenting. Patient continues with pain which is better controlled with oral narcotics. Plan Plan is for conversion to Coumadin. Patient will undergo placement of a Port-A-Cath for chemotherapy prior to discharge. Matteo Sandoval MD Jul 25, 2018 21:56
[2018-07-26] MEDS: NORCO, ANEXSIA 5/325MG TABLET (HYDROcodone/ACETAMINOPHEN) PO PRN ×5 (00:07→16:15)
[2018-07-26 04:00] VITALS: BP 142/80
[2018-07-26] MEDS: HEPARIN DRIP 25,000 UNITS in APPROPRIATE DILUENT 1 EA IV SCH ×2 (04:18→21:26)
[2018-07-26 05:17] LABS: HEMOGLOBIN 8.2 g/dl (12.0-15.5); MEAN CORPUSCULAR HEMOGLOBIN 27.3 pg (27.0-33.0); MEAN CORPUSCULAR HGB CONC 31.5 g/dl (32.0-36.5); MEAN CORPUSCULAR VOLUME 86.7 fl (80.0-96.0); PLATELET COUNT, AUTOMATED 122 10^3/uL (150-450); WHITE BLOOD COUNT 9.9 10^3/uL (4.0-10.0)
[2018-07-26] MEDS: SODIUM CHLORIDE 0.9% INJ 10 ML SYR IV SCH ×2 (05:29→18:00)
[2018-07-26 06:07] LABS: ALBUMIN 2.1 GM/DL (3.2-5.2); ALT/SGPT 16 U/L (12-78); BILIRUBIN,TOTAL 0.3 MG/DL (0.2-1.0); BLOOD UREA NITROGEN 12 MG/DL (7-18); CALCIUM LEVEL 8.3 MG/DL (8.8-10.2); CARBON DIOXIDE LEVEL 28 MEQ/L (21-32); CHLORIDE LEVEL 96 MEQ/L (98-107); CREATININE FOR GFR 0.54 MG/DL (0.55-1.30); GLOMERULAR FILTRATION RATE > 60.0 (>45); GLUCOSE, FASTING 106 MG/DL (70-100); POTASSIUM SERUM 3.8 MEQ/L (3.5-5.1); SODIUM LEVEL 133 MEQ/L (136-145); TOTAL PROTEIN 5.4 GM/DL (6.4-8.2)
[2018-07-26 08:00] VITALS: BP_SYST 118; BP_SYST 126; BP_DIAS 64; BP_DIAS 73
[2018-07-26] MEDS: BISACODYL 5 MG TAB PO SCH ×2 (08:16→20:56)
[2018-07-26] MEDS: DOCUSATE SODIUM 100 MG CAP PO SCH (08:17)
[2018-07-26] MEDS: **NOTE PATIENT COMMENT** MISC XX SCH (09:00)
[2018-07-26] MEDS: ACETAMINOPHEN TAB 650MG DOSE (2X325MG) PO PRN (10:01)
[2018-07-26] MEDS: HEPARIN SOD (PORCINE) 5000 UNITS/ML VIAL IV PRN (14:19)
[2018-07-26] MEDS ORDERED: MORPHINE 4 MG/ML 1ML VIAL/SYRINGE (J2270) IV PRN (20:00)
[2018-07-26] MEDS: ANEXSIA, NORCO 7.5MG/325MG TABLET(HYDROCODONE/APAP) PO PRN (20:55)
[2018-07-26] MEDS: LIDOCAINE 5% (LIDODERM) PATCH TD SCH (20:56)
--- NOTE | 2018-07-26 21:53 | IPNPDOC ---
Subjective General Date/Time Seen The patient was seen on 07/26/18 at 21:52. Subject Chief Complaint/History The patient is a 63-year-old female admitted with a reason for visit of DVT. Patient notes that pain is slightly improved. Current Medications Current Medications Current Medications Acetaminophen (Tylenol Tab) 650 mg Q6HP PRN PO PAIN / FEVER Last administered on 07/26/18at 10:01; Start 07/19/18 at 10:30 Acetaminophen/ Hydrocodone Bitart (Anexsia, [place] 7.5mg/325mg) 1 tab Q4HP PRN PO PAIN Last administered on 07/26/18at 20:55; Start 07/26/18 at 20:00 Acetaminophen/ Hydrocodone Bitart ([place], Anexsia 5/325) 1 tab Q4HP PRN PO MILD/MODERATE PAIN (PS 1-7) Last administered on 07/26/18at 12:14; Start 07/19/18 at 05:00; Stop 07/26/18 at 20:00; Status DC Acetaminophen/ Hydrocodone Bitart ([place], Anexsia 5/325) 1 tab Q6HP PRN PO MILD/MODERATE PAIN (PS 1-7) Last administered on 07/19/18at 00:04; Start 07/16/18 at 23:45; Stop 07/19/18 at 05:00; Status DC Acetaminophen/ Hydrocodone Bitart ([place], Anexsia 5/325) 2 tab Q4HP PRN PO SEVERE PAIN (PS 8-10) Last administered on 07/26/18at 16:15; Start 07/25/18 at 09:30; Stop 07/26/18 at 20:00; Status DC Alteplase, Recombinant 10 mg/ Sodium Chloride 100 ml @ 2.5 mls/hr Q24H IV Last administered on 07/23/18at 21:28; Start 07/17/18 at 21:00; Stop 07/24/18 at 12:35; Status DC Alteplase, Recombinant 25 mg/ Sodium Chloride 250 ml @ 2.5 mls/hr Q24H IV Last administered on 07/16/18at 22:30; Start 07/16/18 at 21:00; Stop 07/18/18 at 16:53; Status DC Bisacodyl (Dulcolax Suppository) 10 mg 1615 PRN [place] NO RESULTS FROM FIRST SUPP; Start 07/19/18 at 15:30; Stop 07/19/18 at 17:00; Status DC Bisacodyl (Dulcolax Suppository) 10 mg DAILYPRN PRN [place] CONSTIPATION Last administered on 07/25/18 05:05; Start 07/23/18 at 08:30 Bisacodyl (Dulcolax Tab) 10 mg BID PO Last administered on 07/26/18 20:56; Start 07/25/18 at 21:00 Docusate Sodium (Colace) 100 mg DAILY PO Last administered on 07/26/18 08:17; Start 07/17/18 at 09:00 Fentanyl Citrate (Sublimaze) 25 mcg Q1HP PRN IV PAIN Last administered on 07/25/18 03:15; Start 07/21/18 at 22:30; Stop 07/26/18 at 11:44; Status DC Fentanyl Citrate (Sublimaze) 50 mcg ASDIRECTED IV ; Start 07/20/18 at 14:30; Stop 07/20/18 at 15:30; Status DC Heparin Sodium (Heparin (Flush)) 200 units ASDIRECTED PRN IV SEE LABEL COMMENTS Last administered on 07/24/18 22:21; Start 07/16/18 at 23:45 Heparin Sodium (Heparin (Flush)) 200 units PICC IV Last administered on 07/26/18at 19:10; Start 07/17/18 at 06:00 Heparin Sodium (Porcine) (Heparin) ASDIRECTED PRN IV SEE LABEL COMMENTS Last administered on 07/26/18 14:19; Start 07/24/18 at 12:45 Heparin Sodium (Porcine) (Heparin) ASDIRECTED PRN IV SEE LABEL COMMENTS; Start 07/24/18 at 16:15; Stop 07/24/18 at 16:15; Status DC Heparin Sodium (Porcine) 39299 units/IV Miscellaneous Supplies 250 ml @ 11 mls/hr [id number] IV Last administered on 07/26/18 21:26; Start 07/24/18 at 13:00 Heparin Sodium (Porcine) 61506 units/IV Miscellaneous Supplies 250 ml @ 6 mls/hr Q24H IV Last administered on 07/23/18 21:29; Start 07/16/18 at 21:00; Stop 07/24/18 at 12:35; Status DC Home Med (Med Rec Complete!) ASDIRECTED XX ; Start 07/16/18 at 23:00; Stop 07/16/18 at 23:00; Status DC Lidocaine (Lidoderm Patch) 1 patch QHS TD Last administered on 07/25/18at 01:24; Start 07/19/18 at 21:00 Midazolam HCl (Versed) 1 mg ASDIRECTED IV ; Start 07/20/18 at 14:30; Stop 07/20/18 at 15:30; Status DC Miscellaneous (Unresolved Clarification Entry) SEE LABEL COMMENTS DAILY XX ; Start 07/23/18 at 09:00; Stop 07/23/18 at 09:00; Status DC Miscellaneous (Unresolved Clarification Entry) SEE LABEL COMMENTS DAILY XX ; Start 07/25/18 at 09:00; Stop 07/25/18 at 10:30; Status DC Morphine Sulfate (Morphine Sulfate Inj) 2 mg Q30MP PRN IV BREAKTHROUGH PAIN; Start 07/26/18 at 20:00 Non-Formulary Medication ( See Comment Field Below ) REMOVE LIDODERM PATCH DAILY XX Last administered on 07/25/18at 09:00; Start 07/20/18 at 09:00 Non-Formulary Medication (Heparin Iv Rate Change Documentation ml/ Hr) ASDIRECTED XX Last administered on 07/26/18at 14:25; Start 07/24/18 at 16:15; Stop 07/29/18 at 16:14 Senna (Senokot) 1 tab DAILYPRN PRN PO CONSTIPATION Last administered on 07/25/18at 09:34; Start 07/17/18 at 13:30; Stop 07/25/18 at 17:36; Status DC Sodium Biphosphate/ Sodium Phosphate (Fleet Enema) 1 ea ONCE PRN [place] NO RESULTS FROM DULCOLAX SUPPS Last administered on 07/25/18at 07:41; Start 07/19/18 at 18:00 Sodium Chloride 1,000 ml @ 100 mls/hr Q10H IV Last administered on 07/23/18at 06:40; Start 07/18/18 at 19:15; Stop 07/23/18 at 18:46; Status DC Sodium Chloride (Saline Lock Flush) 2 ml ASDIRECTED PRN IV SEE LABEL COMMENTS; Start 07/16/18 at 22:30; Stop 07/18/18 at 15:17; Status DC Sodium Chloride (Saline Lock Flush) 2 ml SLF IV Last administered on 07/18/18at 05:42; Start 07/17/18 at 06:00; Stop 07/18/18 at 15:17; Status DC Sodium Chloride (Saline Lock Flush) 10 ml ASDIRECTED PRN IV SEE LABEL COMMENTS Last administered on 07/24/18at 22:21; Start 07/16/18 at 23:45 Sodium Chloride (Saline Lock Flush) 10 ml PICC IV Last administered on 07/26/18at 18:00; Start 07/17/18 at 06:00 Allergies Coded Allergies: No Known Drug Allergy (Verified Allergy, Unknown, 12/06/17) VITAL SIGNS VITAL SIGNS Vital Signs Date Time Temp Pulse Resp B/P (MAP) Pulse Ox O2 Delivery O2 Flow Rate FiO2 07/26/18 21:25 14 07/26/18 20:55 16 07/26/18 18:44 17 07/26/18 16:15 17 07/26/18 13:18 18 07/26/18 12:14 17 07/26/18 08:16 20 07/26/18 08:00 100.3 113 18 126/73 (90) 99 07/26/18 08:00 98.9 118 17 118/64 (82) 98 07/26/18 04:19 18 07/26/18 04:00 98.6 110 16 142/80 (100) 96 07/26/18 00:07 16 Intake & Output 07/26/18 06:00 Intake Total 1317 ml Output Total 2100 ml Balance -783 ml Laboratory Tests 07/26/18 05:03: White Blood Count 9.9, Red Blood Count 3.00L, Hemoglobin 8.2L, Hematocrit 26.0L, Mean Corpuscular Volume 86.7, Mean Corpuscular Hemoglobin 27.3, Mean Corpuscular Hemoglobin Concent 31.5L, Red Cell Distribution Width 17.1H, Platelet Count 122L, Nucleated Red Blood Cells % (auto) 0.0, Activated Partial Thromboplast Time 73.3H, Blood Urea Nitrogen 12, Creatinine 0.54L, Sodium Level 133L, Potassium Level 3.8, Chloride Level 96L, Carbon Dioxide Level 28, Calcium Level 8.3L, Aspartate Amino Transf (AST/SGOT) 40H, Alanine Aminotransferase (ALT/SGPT) 16, Alkaline Phosphatase 379H, Total Bilirubin 0.3, Total Protein 5.4L, Albumin 2.1L, Anion Gap 9, Glomerular Filtration Rate > 60.0, Fasting Glucose 106H, Albumin/Globulin Ratio 0.64L 07/26/18 12:50: Activated Partial Thromboplast Time 61.1H 07/26/18 20:36: Activated Partial Thromboplast Time 92.1H Microbiology 07/26/18 Stool Occult Blood (BOBBI) - Final, Complete Current Medications Medications (Trade) Dose Ordered Sig/Dmitry Route PRN Reason Start Time Stop Time Status Last Admin Dose Admin Acetaminophen (Tylenol Tab) 650 mg Q6HP PRN PO PAIN / FEVER 07/19/18 10:30 07/26/18 10:01 Acetaminophen/ Hydrocodone Bitart (Anexsia, [place] 7.5mg/325mg) 1 tab Q4HP PRN PO PAIN 07/26/18 20:00 07/26/18 20:55 Bisacodyl (Dulcolax Suppository) 10 mg DAILYPRN PRN [place] CONSTIPATION 07/23/18 08:30 07/25/18 05:05 Bisacodyl (Dulcolax Tab) 10 mg BID PO 07/25/18 21:00 07/26/18 20:56 Docusate Sodium (Colace) 100 mg DAILY PO 07/17/18 09:00 07/26/18 08:17 Heparin Sodium (Heparin (Flush)) 200 units ASDIRECTED PRN IV SEE LABEL COMMENTS 07/16/18 23:45 07/24/18 22:21 Heparin Sodium (Porcine) (Heparin) ASDIRECTED PRN IV SEE LABEL COMMENTS 07/24/18 12:45 07/26/18 14:19 Heparin Sodium (Porcine) 84199 units/IV Miscellaneous Supplies 250 ml @ 11 mls/hr [id number] 07/24/18 13:00 07/26/18 21:26 Lidocaine (Lidoderm Patch) 1 patch QHS TD 07/19/18 21:00 07/25/18 01:24 Non-Formulary Medication ( See Comment Field Below ) REMOVE LIDODERM PATCH DAILY XX 07/20/18 09:00 07/25/18 09:00 Non-Formulary Medication (Heparin Iv Rate Change Documentation ml/ Hr) ASDIRECTED XX 07/24/18 16:15 07/29/18 16:14 07/26/18 14:25 Sodium Biphosphate/ Sodium Phosphate (Fleet Enema) 1 ea ONCE PRN [place] NO RESULTS FROM DULCOLAX SUPPS 07/19/18 18:00 07/25/18 07:41 Sodium Chloride (Saline Lock Flush) 10 ml ASDIRECTED PRN IV SEE LABEL COMMENTS 07/16/18 23:45 07/24/18 22:21 Laboratory Tests 07/25/18 04:50 Red Blood Count 2.87 L, Mean Corpuscular Volume 85.0, Mean Corpuscular Hemoglobin 27.2, Mean Corpuscular Hemoglobin Concent 32.0, Red Cell Distribution Width 16.8 H, Calcium Level 8.8, Aspartate Amino Transf (AST/SGOT) 40 H, Alanine Aminotransferase (ALT/SGPT) 15, Alkaline Phosphatase 389 H, Total Bilirubin 0.4, Total Protein 6.4, Albumin 2.2 L 07/26/18 05:03 Red Blood Count 3.00 L, Mean Corpuscular Volume 86.7, Mean Corpuscular Hemoglobin 27.3, Mean Corpuscular Hemoglobin Concent 31.5 L, Red Cell Distribution Width 17.1 H, Calcium Level 8.3 L, Aspartate Amino Transf (AST/SGOT) 40 H, Alanine Aminotransferase (ALT/SGPT) 16, Alkaline Phosphatase 379 H, Total Bilirubin 0.3, Total Protein 5.4 L, Albumin 2.1 L Microbiology 07/26/18 Stool Occult Blood (BOBBI) - Final, Complete Objective Physical Examination General Exam: Positive: Alert, Cooperative, Moderate Distress Eye Exam: Positive: PERRLA, Conjunctiva & lids normal, EOMI ENT Exam: Positive: Atraumatic, Mucous membr. moist/pink, Pharynx Normal, Tongue Midline, Nares Patent, Ext Auditory Canal Nml, Pinna Normal Neck Exam: Positive: Supple, +2 carotid pulse wo bruit; Negative: JVD, thyromegaly, Lymphadenopathy Chest Exam: Positive: Clear to auscultation, Normal air movement; Negative: Rales, Rhonchi, Wheezing, Diminished Heart Exam: Positive: Tachycardic, Regular Rhythm; Negative: Bradycardic, Irregular Rhythm, Gallops, Murmurs, Rubs Telemetry: Positive: No significant arrhythmia, Sinus Abdomen Exam: Positive: Normal bowel sounds, Soft; Negative: BS Hyperactive, BS Hypoactive, Tenderness, Hepatospenomegaly, Mass, Hernia Female Exam: Positive: Nl Ext Genitalia Extremity Exam: Positive: Cyanosis, Edema, Normal pulses, Tenderness, Swelling; Negative: Clubbing Skin Exam: Positive: Nl turgor and temperature; Negative: Rash, Breakdown, Lesion, Pruritus Neuro Exam: Positive: Normal Gait, Normal Speech, Strength at 5/5 X4 ext, Normal Tone, Sensation Intact, Cranial Nerves 3-12 NL, Reflexes 2+ Psych Exam: Positive: Mental status NL, Mood NL, Memory Intact, Oriented x 3; Negative: Anxiety Assessment/Plan Assessment 63-year-old female with metastatic endometrial cancer with slight improvement in her left lower extremity swelling and pain after venous thrombolysis and iliac vein angioplasty and stenting. Plan Plan for Port-A-Cath placement prior to discharge. Patient wishes to be discharged on Eliquis and not Coumadin and the plan will be to continue the heparin drip until discharge at which time her Eliquis will be restarted. Matteo Sandoval MD Jul 26, 2018 21:53
[2018-07-26 22:00] VITALS: BP 123/67
[2018-07-27] MEDS: ANEXSIA, NORCO 7.5MG/325MG TABLET(HYDROCODONE/APAP) PO PRN ×6 (00:30→21:01)
[2018-07-27] MEDS: SODIUM CHLORIDE 0.9% INJ 10 ML SYR IV SCH ×2 (05:47→17:01)
[2018-07-27 06:00] VITALS: BP 120/64
[2018-07-27 06:46] LABS: HEMATOCRIT 27.5 % (36.0-47.0); HEMOGLOBIN 8.8 g/dl (12.0-15.5); MEAN CORPUSCULAR HEMOGLOBIN 27.2 pg (27.0-33.0); MEAN CORPUSCULAR VOLUME 84.9 fl (80.0-96.0); PLATELET COUNT, AUTOMATED 123 10^3/uL (150-450); RED BLOOD COUNT 3.24 10^6/uL (4.00-5.40); WHITE BLOOD COUNT 11.2 10^3/uL (4.0-10.0)
[2018-07-27 07:09] LABS: ALBUMIN 2.2 GM/DL (3.2-5.2); ALT/SGPT 14 U/L (12-78); BILIRUBIN,TOTAL 0.4 MG/DL (0.2-1.0); BLOOD UREA NITROGEN 13 MG/DL (7-18); CALCIUM LEVEL 8.7 MG/DL (8.8-10.2); CARBON DIOXIDE LEVEL 26 MEQ/L (21-32); CHLORIDE LEVEL 95 MEQ/L (98-107); GLOMERULAR FILTRATION RATE > 60.0 (>45); GLUCOSE, FASTING 104 MG/DL (70-100); POTASSIUM SERUM 3.7 MEQ/L (3.5-5.1); SODIUM LEVEL 131 MEQ/L (136-145); TOTAL PROTEIN 6.2 GM/DL (6.4-8.2)
[2018-07-27] MEDS: DOCUSATE SODIUM 100 MG CAP PO SCH (08:18)
[2018-07-27] MEDS: BISACODYL 5 MG TAB PO SCH ×2 (08:18→20:57)
[2018-07-27] MEDS: **NOTE PATIENT COMMENT** MISC XX SCH (08:20)
[2018-07-27] MEDS: HEPARIN DRIP 25,000 UNITS in APPROPRIATE DILUENT 1 EA IV SCH (12:52)
[2018-07-27 13:45] LABS: HEMATOCRIT 28.3 % (36.0-47.0); HEMOGLOBIN 8.9 g/dl (12.0-15.5); MEAN CORPUSCULAR HEMOGLOBIN 27.4 pg (27.0-33.0); MEAN CORPUSCULAR HGB CONC 31.4 g/dl (32.0-36.5); MEAN CORPUSCULAR VOLUME 87.1 fl (80.0-96.0); PLATELET COUNT, AUTOMATED 117 10^3/uL (150-450); RED BLOOD COUNT 3.25 10^6/uL (4.00-5.40); WHITE BLOOD COUNT 12.4 10^3/uL (4.0-10.0)
[2018-07-27 14:00] VITALS: BP 138/71
[2018-07-27 22:00] VITALS: BP 131/71
[2018-07-27] MEDS: LIDOCAINE 5% (LIDODERM) PATCH TD SCH (22:10)
[2018-07-27] MEDS: SODIUM CHLORIDE 0.9% INJ 10 ML SYR IV PRN (23:52)
[2018-07-28] MEDS: ANEXSIA, NORCO 7.5MG/325MG TABLET(HYDROCODONE/APAP) PO PRN ×6 (01:01→21:58)
[2018-07-28] MEDS: HEPARIN DRIP 25,000 UNITS in APPROPRIATE DILUENT 1 EA IV SCH ×2 (04:59→21:19)
[2018-07-28] MEDS: SODIUM CHLORIDE 0.9% INJ 10 ML SYR IV SCH ×2 (05:02→17:45)
[2018-07-28 06:00] VITALS: BP 122/65
[2018-07-28 08:37] VITALS: BP 125/80
[2018-07-28] MEDS: BISACODYL 5 MG TAB PO SCH ×2 (09:00→20:02)
[2018-07-28] MEDS: DOCUSATE SODIUM 100 MG CAP PO SCH (09:11)
[2018-07-28] MEDS: **NOTE PATIENT COMMENT** MISC XX SCH (09:12)
[2018-07-28 14:31] VITALS: BP 107/67
[2018-07-28] MEDS: LIDOCAINE 5% (LIDODERM) PATCH TD SCH ×2 (20:02→21:58)
--- NOTE | 2018-07-28 21:56 | IPNPDOC ---
Subjective General Date/Time Seen The patient was seen on 07/27/18 at 23:35. Subject Chief Complaint/History The patient is a 63-year-old female admitted with a reason for visit of DVT. Left lower extremity pain is controlled with narcotics. Pain in the pelvic and sacral region is slightly improved but continues to be problematic. Current Medications Current Medications Current Medications Acetaminophen (Tylenol Tab) 650 mg Q6HP PRN PO PAIN / FEVER Last administered on 07/26/18at 10:01; Start 07/19/18 at 10:30 Acetaminophen/ Hydrocodone Bitart (Anexsia, [place] 7.5mg/325mg) 1 tab Q4HP PRN PO PAIN Last administered on 07/28/18at 17:44; Start 07/26/18 at 20:00 Acetaminophen/ Hydrocodone Bitart (Jones, Anexsia 5/325) 1 tab Q4HP PRN PO MILD/MODERATE PAIN (PS 1-7) Last administered on 07/26/18at 12:14; Start 07/19/18 at 05:00; Stop 07/26/18 at 20:00; Status DC Acetaminophen/ Hydrocodone Bitart (Jones, Anexsia 5/325) 1 tab Q6HP PRN PO MILD/MODERATE PAIN (PS 1-7) Last administered on 07/19/18at 00:04; Start 07/16/18 at 23:45; Stop 07/19/18 at 05:00; Status DC Acetaminophen/ Hydrocodone Bitart (Jones, Anexsia 5/325) 2 tab DAILYPRN PRN PO PAIN; Start 07/28/18 at 17:15 Acetaminophen/ Hydrocodone Bitart (Jones, Anexsia 5/325) 2 tab Q4HP PRN PO SEVERE PAIN (PS 8-10) Last administered on 07/26/18at 16:15; Start 07/25/18 at 09:30; Stop 07/26/18 at 20:00; Status DC Alteplase, Recombinant 10 mg/ Sodium Chloride 100 ml @ 2.5 mls/hr Q24H IV Last administered on 07/23/18at 21:28; Start 07/17/18 at 21:00; Stop 07/24/18 at 12:35; Status DC Alteplase, Recombinant 25 mg/ Sodium Chloride 250 ml @ 2.5 mls/hr Q24H IV Last administered on 07/16/18 22:30; Start 07/16/18 at 21:00; Stop 07/18/18 at 16:53; Status DC Bisacodyl (Dulcolax Suppository) 10 mg 1615 PRN [place] NO RESULTS FROM FIRST SUPP; Start 07/19/18 at 15:30; Stop 07/19/18 at 17:00; Status DC Bisacodyl (Dulcolax Suppository) 10 mg DAILYPRN PRN [place] CONSTIPATION Last administered on 07/25/18 05:05; Start 07/23/18 at 08:30 Bisacodyl (Dulcolax Tab) 10 mg BID PO Last administered on 07/28/18 20:02; Start 07/25/18 at 21:00 Docusate Sodium (Colace) 100 mg DAILY PO Last administered on 07/28/18 09:11; Start 07/17/18 at 09:00 Fentanyl Citrate (Sublimaze) 25 mcg Q1HP PRN IV PAIN Last administered on 07/25/18at 03:15; Start 07/21/18 at 22:30; Stop 07/26/18 at 11:44; Status DC Fentanyl Citrate (Sublimaze) 50 mcg ASDIRECTED IV ; Start 07/20/18 at 14:30; Stop 07/20/18 at 15:30; Status DC Heparin Sodium (Heparin (Flush)) 200 units ASDIRECTED PRN IV SEE LABEL COMMENTS Last administered on 07/27/18at 23:52; Start 07/16/18 at 23:45 Heparin Sodium (Heparin (Flush)) 200 units PICC IV Last administered on 07/28/18at 17:45; Start 07/17/18 at 06:00 Heparin Sodium (Porcine) (Heparin) ASDIRECTED PRN IV SEE LABEL COMMENTS Last administered on 07/26/18 14:19; Start 07/24/18 at 12:45 Heparin Sodium (Porcine) (Heparin) ASDIRECTED PRN IV SEE LABEL COMMENTS; Start 07/24/18 at 16:15; Stop 07/24/18 at 16:15; Status DC Heparin Sodium (Porcine) 09854 units/IV Miscellaneous Supplies 250 ml @ 11 mls/hr [id number] IV Last administered on 07/28/18at 21:19; Start 07/24/18 at 13:00 Heparin Sodium (Porcine) 40563 units/IV Miscellaneous Supplies 250 ml @ 6 mls/hr Q24H IV Last administered on 07/23/18 21:29; Start 07/16/18 at 21:00; Stop 07/24/18 at 12:35; Status DC Home Med (Med Rec Complete!) ASDIRECTED XX ; Start 07/16/18 at 23:00; Stop 07/16/18 at 23:00; Status DC Lidocaine (Lidoderm Patch) 1 patch QHS TD Last administered on 07/27/18at 22:10; Start 07/19/18 at 21:00 Midazolam HCl (Versed) 1 mg ASDIRECTED IV ; Start 07/20/18 at 14:30; Stop 07/20/18 at 15:30; Status DC Miscellaneous (Unresolved Clarification Entry) SEE LABEL COMMENTS DAILY XX ; Start 07/23/18 at 09:00; Stop 07/23/18 at 09:00; Status DC Miscellaneous (Unresolved Clarification Entry) SEE LABEL COMMENTS DAILY XX ; Start 07/25/18 at 09:00; Stop 07/25/18 at 10:30; Status DC Morphine Sulfate (Morphine Sulfate Inj) 2 mg Q30MP PRN IV BREAKTHROUGH PAIN Last administered on 07/27/18at 23:47; Start 07/26/18 at 20:00 Non-Formulary Medication ( See Comment Field Below ) REMOVE LIDODERM PATCH DAILY XX Last administered on 07/28/18at 09:12; Start 07/20/18 at 09:00 Non-Formulary Medication (Heparin Iv Rate Change Documentation ml/ Hr) ASDIRECTED XX Last administered on 07/26/18at 14:25; Start 07/24/18 at 16:15; Stop 07/29/18 at 16:14 Senna (Senokot) 1 tab DAILYPRN PRN PO CONSTIPATION Last administered on 07/25/18 09:34; Start 07/17/18 at 13:30; Stop 07/25/18 at 17:36; Status DC Sodium Biphosphate/ Sodium Phosphate (Fleet Enema) 1 ea ONCE PRN [place] NO RESULTS FROM DULCOLAX SUPPS Last administered on 07/25/18at 07:41; Start 07/19/18 at 18:00 Sodium Chloride 1,000 ml @ 100 mls/hr Q10H IV Last administered on 07/23/18at 06:40; Start 07/18/18 at 19:15; Stop 07/23/18 at 18:46; Status DC Sodium Chloride (Saline Lock Flush) 2 ml ASDIRECTED PRN IV SEE LABEL COMMENTS; Start 07/16/18 at 22:30; Stop 07/18/18 at 15:17; Status DC Sodium Chloride (Saline Lock Flush) 2 ml SLF IV Last administered on 07/18/18at 05:42; Start 07/17/18 at 06:00; Stop 07/18/18 at 15:17; Status DC Sodium Chloride (Saline Lock Flush) 10 ml ASDIRECTED PRN IV SEE LABEL COMMENTS Last administered on 07/27/18at 23:52; Start 07/16/18 at 23:45 Sodium Chloride (Saline Lock Flush) 10 ml PICC IV Last administered on 07/28/18at 17:45; Start 07/17/18 at 06:00 Allergies Coded Allergies: No Known Drug Allergy (Verified Allergy, Unknown, 12/06/17) VITAL SIGNS VITAL SIGNS Afebrile vital signs stable. Objective Physical Examination General Exam: Positive: Alert, Cooperative, Moderate Distress Eye Exam: Positive: PERRLA, Conjunctiva & lids normal, EOMI ENT Exam: Positive: Atraumatic, Mucous membr. moist/pink, Pharynx Normal, Tongue Midline, Nares Patent, Ext Auditory Canal Nml, Pinna Normal Neck Exam: Positive: Supple, +2 carotid pulse wo bruit; Negative: JVD, thyromegaly, Lymphadenopathy Chest Exam: Positive: Clear to auscultation, Normal air movement; Negative: Rales, Rhonchi, Wheezing, Diminished Heart Exam: Positive: Tachycardic, Regular Rhythm; Negative: Bradycardic, Irregular Rhythm, Gallops, Murmurs, Rubs Telemetry: Positive: No significant arrhythmia, Sinus Abdomen Exam: Positive: Normal bowel sounds, Soft; Negative: BS Hyperactive, BS Hypoactive, Tenderness, Hepatospenomegaly, Mass, Hernia Female Exam: Positive: Nl Ext Genitalia Extremity Exam: Positive: Cyanosis, Edema, Normal pulses, Tenderness, Swelling; Negative: Clubbing Skin Exam: Positive: Nl turgor and temperature; Negative: Rash, Breakdown, Lesion, Pruritus Neuro Exam: Positive: Normal Gait, Normal Speech, Strength at 5/5 X4 ext, Normal Tone, Sensation Intact, Cranial Nerves 3-12 NL, Reflexes 2+ Psych Exam: Positive: Mental status NL, Mood NL, Memory Intact, Oriented x 3; Negative: Anxiety Assessment/Plan Assessment 63-year-old female with metastatic endometrial cancer and left lower extremity DVT with chronic pelvic and sacral pain. Plan Patient will continue on heparin drip until undergoing placement of her Port-A-Cath for chemotherapy. Patient will continue with oral narcotics for pain control. Patient will be discharged on Eliquis for her left lower extremity DVT. Recommendation was made to the patient to be discharged on Lo venox twice a day but she does not wish to undergo giving herself shots and wishes to be discharged on Eliquis. Matteo Sandoval MD Jul 28, 2018 21:56
--- NOTE | 2018-07-28 21:58 | IPNPDOC ---
Subjective General Date/Time Seen The patient was seen on 07/28/18 at 21:57. Subject Chief Complaint/History The patient is a 63-year-old female admitted with a reason for visit of DVT. Patient notes pain is better controlled and she is ambulating better. Current Medications Current Medications Current Medications Acetaminophen (Tylenol Tab) 650 mg Q6HP PRN PO PAIN / FEVER Last administered on 07/26/18at 10:01; Start 07/19/18 at 10:30 Acetaminophen/ Hydrocodone Bitart (Anexsia, [place] 7.5mg/325mg) 1 tab Q4HP PRN PO PAIN Last administered on 07/28/18at 17:44; Start 07/26/18 at 20:00 Acetaminophen/ Hydrocodone Bitart ([place], Anexsia 5/325) 1 tab Q4HP PRN PO [place] LD/MODERATE PAIN (PS 1-7) Last administered on 07/26/18at 12:14; Start 07/19/18 at 05:00; Stop 07/26/18 at 20:00; Status DC Acetaminophen/ Hydrocodone Bitart ([place], Anexsia 5/325) 1 tab Q6HP PRN PO [place] LD/MODERATE PAIN (PS 1-7) Last administered on 07/19/18at 00:04; Start 07/16/18 at 23:45; Stop 07/19/18 at 05:00; Status DC Acetaminophen/ Hydrocodone Bitart ([place], Anexsia 5/325) 2 tab DAILYPRN PRN PO PAIN; Start 07/28/18 at 17:15 Acetaminophen/ Hydrocodone Bitart ([place], Anexsia 5/325) 2 tab Q4HP PRN PO SEVERE PAIN (PS 8-10) Last administered on 07/26/18at 16:15; Start 07/25/18 at 09:30; Stop 07/26/18 at 20:00; Status DC Alteplase, Recombinant 10 mg/ Sodium Chloride 100 ml @ 2.5 mls/hr Q24H IV Last administered on 07/23/18at 21:28; Start 07/17/18 at 21:00; Stop 07/24/18 at 12:35; Status DC Alteplase, Recombinant 25 mg/ Sodium Chloride 250 ml @ 2.5 mls/hr Q24H IV Last administered on 07/16/18at 22:30; Start 07/16/18 at 21:00; Stop 07/18/18 at 16:53; Status DC Bisacodyl (Dulcolax Suppository) 10 mg 1615 PRN [place] NO RESULTS FROM FIRST SUPP; Start 07/19/18 at 15:30; Stop 07/19/18 at 17:00; Status DC Bisacodyl (Dulcolax Suppository) 10 mg DAILYPRN PRN [place] CONSTIPATION Last administered on 07/25/18at 05:05; Start 07/23/18 at 08:30 Bisacodyl (Dulcolax Tab) 10 mg BID PO Last administered on 07/28/18at 20:02; Start 07/25/18 at 21:00 Docusate Sodium (Colace) 100 mg DAILY PO Last administered on 07/28/18at 09:11; Start 07/17/18 at 09:00 Fentanyl Citrate (Sublimaze) 25 mcg Q1HP PRN IV PAIN Last administered on 07/25/18at 03:15; Start 07/21/18 at 22:30; Stop 07/26/18 at 11:44; Status DC Fentanyl Citrate (Sublimaze) 50 mcg ASDIRECTED IV ; Start 07/20/18 at 14:30; Stop 07/20/18 at 15:30; Status DC Heparin Sodium (Heparin (Flush)) 200 units ASDIRECTED PRN IV SEE LABEL COMMENTS Last administered on 07/27/18at 23:52; Start 07/16/18 at 23:45 Heparin Sodium (Heparin (Flush)) 200 units PICC IV Last administered on 07/28/18at 17:45; Start 07/17/18 at 06:00 Heparin Sodium (Porcine) (Heparin) ASDIRECTED PRN IV SEE LABEL COMMENTS Last administered on 07/26/18at 14:19; Start 07/24/18 at 12:45 Heparin Sodium (Porcine) (Heparin) ASDIRECTED PRN IV SEE LABEL COMMENTS; Start 07/24/18 at 16:15; Stop 07/24/18 at 16:15; Status DC Heparin Sodium (Porcine) 26294 units/IV Miscellaneous Supplies 250 ml @ 11 mls/hr [id number] IV Last administered on 07/28/18at 21:19; Start 07/24/18 at 13:00 Heparin Sodium (Porcine) 42720 units/IV Miscellaneous Supplies 250 ml @ 6 mls/hr Q24H IV Last administered on 07/23/18 21:29; Start 07/16/18 at 21:00; Stop 07/24/18 at 12:35; Status DC Home Med (Med Rec Complete!) ASDIRECTED XX ; Start 07/16/18 at 23:00; Stop 07/16/18 at 23:00; Status DC Lidocaine (Lidoderm Patch) 1 patch QHS TD Last administered on 07/27/18at 22:10; Start 07/19/18 at 21:00 Midazolam HCl (Versed) 1 mg ASDIRECTED IV ; Start 07/20/18 at 14:30; Stop 07/20/18 at 15:30; Status DC Miscellaneous (Unresolved Clarification Entry) SEE LABEL COMMENTS DAILY XX ; Start 07/23/18 at 09:00; Stop 07/23/18 at 09:00; Status DC Miscellaneous (Unresolved Clarification Entry) SEE LABEL COMMENTS DAILY XX ; Start 07/25/18 at 09:00; Stop 07/25/18 at 10:30; Status DC Morphine Sulfate (Morphine Sulfate Inj) 2 mg Q30MP PRN IV BREAKTHROUGH PAIN Last administered on 07/27/18 23:47; Start 07/26/18 at 20:00 Non-Formulary Medication ( See Comment Field Below ) REMOVE LIDODERM PATCH DAILY XX Last administered on 07/28/18at 09:12; Start 07/20/18 at 09:00 Non-Formulary Medication (Heparin Iv Rate Change Documentation ml/ Hr) ASDIRECTED XX Last administered on 07/26/18at 14:25; Start 07/24/18 at 16:15; Stop 07/29/18 at 16:14 Senna (Senokot) 1 tab DAILYPRN PRN PO CONSTIPATION Last administered on 07/25/18 09:34; Start 07/17/18 at 13:30; Stop 07/25/18 at 17:36; Status DC Sodium Biphosphate/ Sodium Phosphate (Fleet Enema) 1 ea ONCE PRN [place] NO RESULTS FROM DULCOLAX SUPPS Last administered on 07/25/18 07:41; Start 07/19/18 at 18:00 Sodium Chloride 1,000 ml @ 100 mls/hr Q10H IV Last administered on 07/23/18at 06:40; Start 07/18/18 at 19:15; Stop 07/23/18 at 18:46; Status DC Sodium Chloride (Saline Lock Flush) 2 ml ASDIRECTED PRN IV SEE LABEL COMMENTS; Start 07/16/18 at 22:30; Stop 07/18/18 at 15:17; Status DC Sodium Chloride (Saline Lock Flush) 2 ml SLF IV Last administered on 07/18/18at 05:42; Start 07/17/18 at 06:00; Stop 07/18/18 at 15:17; Status DC Sodium Chloride (Saline Lock Flush) 10 ml ASDIRECTED PRN IV SEE LABEL COMMENTS Last administered on 07/27/18at 23:52; Start 07/16/18 at 23:45 Sodium Chloride (Saline Lock Flush) 10 ml PICC IV Last administered on 07/28/18at 17:45; Start 07/17/18 at 06:00 Allergies Coded Allergies: No Known Drug Allergy (Verified Allergy, Unknown, 12/06/17) VITAL SIGNS VITAL SIGNS Vital Signs Date Time Temp Pulse Resp B/P (MAP) Pulse Ox O2 Delivery O2 Flow Rate FiO2 07/28/18 18:14 18 07/28/18 17:44 18 07/28/18 14:31 98.6 148 18 107/67 (80) 97 07/28/18 13:29 20 07/28/18 09:11 18 07/28/18 08:37 98.2 16 125/80 99 07/28/18 06:00 98.5 118 16 122/65 (84) 96 07/28/18 05:02 18 07/28/18 01:31 110 07/28/18 01:01 112 16 100 07/27/18 23:57 109 17 100 07/27/18 23:47 120 14 98 07/27/18 22:00 99.3 119 16 131/71 (91) 94 Intake & Output 07/28/18 06:00 Intake Total 612 ml Output Total 700 ml Balance -88 ml Laboratory Tests 07/28/18 05:59: Activated Partial Thromboplast Time 97.4H Microbiology 07/27/18 Stool Occult Blood (BOBBI) - Final, Complete 07/26/18 Stool Occult Blood (BOBBI) - Final, Complete Current Medications Medications (Trade) Dose Ordered Sig/Dmitry Route PRN Reason Start Time Stop Time Status Last Admin Dose Admin Acetaminophen (Tylenol Tab) 650 mg Q6HP PRN PO PAIN / FEVER 07/19/18 10:30 07/26/18 10:01 Acetaminophen/ Hydrocodone Bitart (Anexsia, [place] 7.5mg/325mg) 1 tab Q4HP PRN PO PAIN 07/26/18 20:00 07/28/18 17:44 Bisacodyl (Dulcolax Suppository) 10 mg DAILYPRN PRN [place] CONSTIPATION 07/23/18 08:30 07/25/18 05:05 Bisacodyl (Dulcolax Tab) 10 mg BID PO 07/25/18 21:00 07/28/18 20:02 Docusate Sodium (Colace) 100 mg DAILY PO 07/17/18 09:00 07/28/18 09:11 Heparin Sodium (Heparin (Flush)) 200 units ASDIRECTED PRN IV SEE LABEL COMMENTS 07/16/18 23:45 07/27/18 23:52 Heparin Sodium (Porcine) (Heparin) ASDIRECTED PRN IV SEE LABEL COMMENTS 07/24/18 12:45 07/26/18 14:19 Heparin Sodium (Porcine) 75639 units/IV Miscellaneous Supplies 250 ml @ 11 mls/hr [id number] IV 07/24/18 13:00 07/28/18 21:19 Lidocaine (Lidoderm Patch) 1 patch QHS TD 07/19/18 21:00 07/27/18 22:10 Morphine Sulfate (Morphine Sulfate Inj) 2 mg Q30MP PRN IV BREAKTHROUGH PAIN 07/26/18 20:00 07/27/18 23:47 Non-Formulary Medication ( See Comment Field Below ) REMOVE LIDODERM PATCH DAILY XX 07/20/18 09:00 07/28/18 09:12 Non-Formulary Medication (Heparin Iv Rate Change Documentation ml/ Hr) ASDIRECTED XX 07/24/18 16:15 07/29/18 16:14 07/26/18 14:25 Sodium Biphosphate/ Sodium Phosphate (Fleet Enema) 1 ea ONCE PRN [place] NO RESULTS FROM DULCOLAX SUPPS 07/19/18 18:00 07/25/18 07:41 Sodium Chloride (Saline Lock Flush) 10 ml ASDIRECTED PRN IV SEE LABEL COMMENTS 07/16/18 23:45 07/27/18 23:52 Laboratory Tests 07/27/18 06:34 Red Blood Count 3.24 L, Mean Corpuscular Volume 84.9, Mean Corpuscular Hemoglobin 27.2, Mean Corpuscular Hemoglobin Concent 32.0, Red Cell Distribution Width 17.3 H, Calcium Level 8.7 L, Aspartate Amino Transf (AST/SGOT) 48 H, Alanine Aminotransferase (ALT/SGPT) 14, Alkaline Phosphatase 387 H, Total Bilirubin 0.4, Total Protein 6.2 L, Albumin 2.2 L 07/27/18 13:20 Red Blood Count 3.25 L, Mean Corpuscular Volume 87.1, Mean Corpuscular Hemoglobin 27.4, Mean Corpuscular Hemoglobin Concent 31.4 L, Red Cell Distribution Width 17.2 H Microbiology 07/27/18 Stool Occult Blood (BOBBI) - Final, Complete 07/26/18 Stool Occult Blood (BOBBI) - Final, Complete Objective Physical Examination General Exam: Positive: Alert, Cooperative, Moderate Distress Eye Exam: Positive: PERRLA, Conjunctiva & lids normal, EOMI ENT Exam: Positive: Atraumatic, Mucous membr. moist/pink, Pharynx Normal, Tongue Midline, Nares Patent, Ext Auditory Canal Nml, Pinna Normal Neck Exam: Positive: Supple, +2 carotid pulse wo bruit; Negative: JVD, thyromegaly, Lymphadenopathy Chest Exam: Positive: Clear to auscultation, Normal air movement; Negative: Rales, Rhonchi, Wheezing, Diminished Heart Exam: Positive: Tachycardic, Regular Rhythm; Negative: Bradycardic, Irregular Rhythm, Gallops, Murmurs, Rubs Telemetry: Positive: No significant arrhythmia, Sinus Abdomen Exam: Positive: Normal bowel sounds, Soft; Negative: BS Hyperactive, BS Hypoactive, Tenderness, Hepatospenomegaly, Mass, Hernia Female Exam: Positive: Nl Ext Genitalia Extremity Exam: Positive: Cyanosis, Edema, Normal pulses, Tenderness, Swelling; Negative: Clubbing Skin Exam: Positive: Nl turgor and temperature; Negative: Rash, Breakdown, Lesion, Pruritus Neuro Exam: Positive: Normal Gait, Normal Speech, Strength at 5/5 X4 ext, Normal Tone, Sensation Intact, Cranial Nerves 3-12 NL, Reflexes 2+ Psych Exam: Positive: Mental status NL, Mood NL, Memory Intact, Oriented x 3; Negative: Anxiety Assessment/Plan Assessment Patient is a 63-year-old female with metastatic endometrial cancer and left lower extremity DVT who underwent venous thrombolysis of the left lower extremity with mild to moderate improvement in her left lower extremity symptoms. Patient continues with pelvic and sacral pain which is improving with better oral narcotic pain control. Plan Patient slightly improved. Patient has less swelling in her left lower extremity and is ambulating better and will continue on heparin drip until discharge which time she will be transitioned to Eliquis. Patient will undergo placement of a Port-A-Cath for chemotherapy access prior to discharge home. Matteo Sandoval MD Jul 28, 2018 21:57
[2018-07-28 22:00] VITALS: BP 131/76
[2018-07-29] MEDS: NORCO, ANEXSIA 5/325MG TABLET (HYDROcodone/ACETAMINOPHEN) PO PRN (02:00)
[2018-07-29] MEDS: SODIUM CHLORIDE 0.9% INJ 10 ML SYR IV SCH ×2 (05:25→18:23)
[2018-07-29 05:50] LABS: HEMOGLOBIN 7.9 g/dl (12.0-15.5); MEAN CORPUSCULAR HEMOGLOBIN 27.5 pg (27.0-33.0); MEAN CORPUSCULAR HGB CONC 31.6 g/dl (32.0-36.5); MEAN CORPUSCULAR VOLUME 87.1 fl (80.0-96.0); PLATELET COUNT, AUTOMATED 101 10^3/uL (150-450); RED BLOOD COUNT 2.87 10^6/uL (4.00-5.40); WHITE BLOOD COUNT 11.3 10^3/uL (4.0-10.0)
[2018-07-29 06:00] VITALS: BP 125/69
[2018-07-29] MEDS: ANEXSIA, NORCO 7.5MG/325MG TABLET(HYDROCODONE/APAP) PO PRN ×5 (06:01→22:44)
[2018-07-29 06:51] LABS: ALBUMIN 2.2 GM/DL (3.2-5.2); BLOOD UREA NITROGEN 11 MG/DL (7-18); CALCIUM LEVEL 8.6 MG/DL (8.8-10.2); CARBON DIOXIDE LEVEL 28 MEQ/L (21-32); CHLORIDE LEVEL 96 MEQ/L (98-107); CREATININE FOR GFR 0.59 MG/DL (0.55-1.30); GLOMERULAR FILTRATION RATE > 60.0 (>45); GLUCOSE, FASTING 108 MG/DL (70-100); PHOSPHORUS LEVEL 2.2 MG/DL (2.5-4.9); SODIUM LEVEL 132 MEQ/L (136-145)
[2018-07-29] MEDS: DOCUSATE SODIUM 100 MG CAP PO SCH (08:36)
[2018-07-29] MEDS: BISACODYL 5 MG TAB PO SCH ×2 (09:00→20:39)
[2018-07-29] MEDS: **NOTE PATIENT COMMENT** MISC XX SCH (09:00)
[2018-07-29 14:00] VITALS: BP 131/75
[2018-07-29] MEDS: HEPARIN DRIP 25,000 UNITS in APPROPRIATE DILUENT 1 EA IV SCH (14:43)
--- NOTE | 2018-07-29 19:38 | IPNPDOC ---
Subjective General Date/Time Seen The patient was seen on 07/29/18 at 13:35. Subject Chief Complaint/History The patient is a 63-year-old female admitted with left lower extremity extensive DVT with left lower extremity swelling and pain. History of endometrial cancer. Patient notes the swelling in the left lower extremity is less today. Patient's pain is well controlled with narcotics. Current Medications Current Medications Current Medications Acetaminophen (Tylenol Tab) 650 mg Q6HP PRN PO PAIN / FEVER Last administered on 07/26/18at 10:01; Start 07/19/18 at 10:30 Acetaminophen/ Hydrocodone Bitart (Anexsia, [place] 7.5mg/325mg) 1 tab Q4HP PRN PO PAIN Last administered on 07/29/18at 18:42; Start 07/26/18 at 20:00 Acetaminophen/ Hydrocodone Bitart ([place], Anexsia 5/325) 1 tab Q4HP PRN PO MILD/MODERATE PAIN (PS 1-7) Last administered on 07/26/18at 12:14; Start 07/19/18 at 05:00; Stop 07/26/18 at 20:00; Status DC Acetaminophen/ Hydrocodone Bitart ([place], Anexsia 5/325) 1 tab Q6HP PRN PO MILD/MODERATE PAIN (PS 1-7) Last administered on 07/19/18at 00:04; Start 07/16/18 at 23:45; Stop 07/19/18 at 05:00; Status DC Acetaminophen/ Hydrocodone Bitart ([place], Anexsia 5/325) 2 tab DAILYPRN PRN PO PAIN Last administered on 07/29/18at 02:00; Start 07/28/18 at 17:15 Acetaminophen/ Hydrocodone Bitart ([place], Anexsia 5/325) 2 tab Q4HP PRN PO SEVERE PAIN (PS 8-10) Last administered on 07/26/18at 16:15; Start 07/25/18 at 09:30; Stop 07/26/18 at 20:00; Status DC Alteplase, Recombinant 10 mg/ Sodium Chloride 100 ml @ 2.5 mls/hr Q24H IV Last administered on 07/23/18at 21:28; Start 07/17/18 at 21:00; Stop 07/24/18 at 12:35; Status DC Alteplase, Recombinant 25 mg/ Sodium Chloride 250 ml @ 2.5 mls/hr Q24H IV Last administered on 07/16/18at 22:30; Start 07/16/18 at 21:00; Stop 07/18/18 at 16:53; Status DC Bisacodyl (Dulcolax Suppository) [address] NO RESULTS FROM FIRST SUPP; Start 07/19/18 at 15:30; Stop 07/19/18 at 17:00; Status DC Bisacodyl (Dulcolax Suppository) [address] CONSTIPATION Last administered on 07/25/18at 05:05; Start 07/23/18 at 08:30 Bisacodyl (Dulcolax Tab) 10 mg BID PO Last administered on 07/28/18at 20:02; Start 07/25/18 at 21:00 Docusate Sodium (Colace) 100 mg DAILY PO Last administered on 07/29/18at 08:36; Start 07/17/18 at 09:00 Fentanyl Citrate (Sublimaze) 25 mcg Q1HP PRN IV PAIN Last administered on 07/25/18at 03:15; Start 07/21/18 at 22:30; Stop 07/26/18 at 11:44; Status DC Fentanyl Citrate (Sublimaze) 50 mcg ASDIRECTED IV ; Start 07/20/18 at 14:30; Stop 07/20/18 at 15:30; Status DC Heparin Sodium (Heparin (Flush)) 200 units ASDIRECTED PRN IV SEE LABEL COMMENTS Last administered on 07/27/18at 23:52; Start 07/16/18 at 23:45 Heparin Sodium (Heparin (Flush)) 200 units PICC IV Last administered on 07/29/18 at 18:23; Start 07/17/18 at 06:00 Heparin Sodium (Porcine) (Heparin) ASDIRECTED PRN IV SEE LABEL COMMENTS Last administered on 07/26/18at 14:19; Start 07/24/18 at 12:45 Heparin Sodium (Porcine) (Heparin) ASDIRECTED PRN IV SEE LABEL COMMENTS; Start 07/24/18 at 16:15; Stop 07/24/18 at 16:15; Status DC Heparin Sodium (Porcine) 56162 units/IV Miscellaneous Supplies 250 ml @ 11 mls/hr [id number] IV Last administered on 07/29/18 14:43; Start 07/24/18 at 13:00 Heparin Sodium (Porcine) 71509 units/IV Miscellaneous Supplies 250 ml @ 6 mls/hr Q24H IV Last administered on 07/23/18 21:29; Start 07/16/18 at 21:00; Stop 07/24/18 at 12:35; Status DC Home Med (Med Rec Complete!) ASDIRECTED XX ; Start 07/16/18 at 23:00; Stop 07/16/18 at 23:00; Status DC Lidocaine (Lidoderm Patch) 1 patch QHS TD Last administered on 07/28/18 21:58; Start 07/19/18 at 21:00 Midazolam HCl (Versed) 1 mg ASDIRECTED IV ; Start 07/20/18 at 14:30; Stop 07/20/18 at 15:30; Status DC Miscellaneous (Unresolved Clarification Entry) SEE LABEL COMMENTS DAILY XX ; Start 07/23/18 at 09:00; Stop 07/23/18 at 09:00; Status DC Miscellaneous (Unresolved Clarification Entry) SEE LABEL COMMENTS DAILY XX ; Start 07/25/18 at 09:00; Stop 07/25/18 at 10:30; Status DC Morphine Sulfate (Morphine Sulfate Inj) 2 mg Q30MP PRN IV BREAKTHROUGH PAIN Last administered on 07/27/18at 23:47; Start 07/26/18 at 20:00 Non-Formulary Medication ( See Comment Field Below ) REMOVE LIDODERM PATCH DAILY XX Last administered on 07/29/18at 09:00; Start 07/20/18 at 09:00 Non-Formulary Medication (Heparin Iv Rate Change Documentation ml/ Hr) ASDIRECTED XX Last administered on 07/26/18 14:25; Start 07/24/18 at 16:15; Stop 07/29/18 at 16:14; Status DC Senna (Senokot) 1 tab DAILYPRN PRN PO CONSTIPATION Last administered on 07/25/18 09:34; Start 07/17/18 at 13:30; Stop 07/25/18 at 17:36; Status DC Sodium Biphosphate/ Sodium Phosphate (Fleet Enema) [address] NO RESULTS FROM DULCOLAX SUPPS Last administered on 07/25/18at 07:41; Start 07/19/18 at 18:00 Sodium Chloride 1,000 ml @ 100 mls/hr Q10H IV Last administered on 07/23/18at 06:40; Start 07/18/18 at 19:15; Stop 07/23/18 at 18:46; Status DC Sodium Chloride (Saline Lock Flush) 2 ml ASDIRECTED PRN IV SEE LABEL COMMENTS; Start 07/16/18 at 22:30; Stop 07/18/18 at 15:17; Status DC Sodium Chloride (Saline Lock Flush) 2 ml SLF IV Last administered on 07/18/18at 05:42; Start 07/17/18 at 06:00; Stop 07/18/18 at 15:17; Status DC Sodium Chloride (Saline Lock Flush) 10 ml ASDIRECTED PRN IV SEE LABEL COMMENTS Last administered on 07/27/18at 23:52; Start 07/16/18 at 23:45 Sodium Chloride (Saline Lock Flush) 10 ml PICC IV Last administered on 07/29/18at 18:23; Start 07/17/18 at 06:00 Allergies Coded Allergies: No Known Drug Allergy (Verified Allergy, Unknown, 12/06/17) VITAL SIGNS VITAL SIGNS Vital Signs Date Time Temp Pulse Resp B/P (MAP) Pulse Ox O2 Delivery O2 Flow Rate FiO2 07/29/18 18:42 16 07/29/18 15:11 16 07/29/18 14:41 18 07/29/18 14:00 99.5 108 20 131/75 (93) 100 07/29/18 10:17 16 07/29/18 06:01 18 07/29/18 06:00 98.0 126 18 125/69 (87) 97 07/29/18 02:43 16 07/29/18 02:00 18 07/28/18 22:00 98.5 113 20 131/76 (94) 99 07/28/18 21:58 18 Intake & Output 07/29/18 05:59 Intake Total 462 ml Output Total 1200 ml Balance -738 ml Laboratory Tests 07/29/18 05:26: White Blood Count 11.3H, Red Blood Count 2.87L, Hemoglobin 7.9L, Hematocrit 25.0L, Mean Corpuscular Volume 87.1, Mean Corpuscular Hemoglobin 27.5, Mean Corpuscular Hemoglobin Concent 31.6L, Red Cell Distribution Width 17.5H, Platelet Count 101L, Nucleated Red Blood Cells % (auto) 0.0, Blood Urea Nitrogen 11, Creatinine 0.59, Sodium Level 132L, Potassium Level 4.0, Chloride Level 96L, Carbon Dioxide Level 28, Anion Gap 8, Glomerular Filtration Rate > 60.0, Fasting Glucose 108H, Calcium Level 8.6L, Phosphorus Level 2.2L, Albumin 2.2L, CA 125 Antigen [Pending] 07/29/18 06:20: Activated Partial Thromboplast Time 72.2H Microbiology 07/27/18 Stool Occult Blood (BOBBI) - Final, Complete 07/26/18 Stool Occult Blood (BOBBI) - Final, Complete Current Medications Medications (Trade) Dose Ordered Sig/Dmitry Route PRN Reason Start Time Stop Time Status Last Admin Dose Admin Acetaminophen (Tylenol Tab) 650 mg Q6HP PRN PO PAIN / FEVER 07/19/18 10:30 07/26/18 10:01 Acetaminophen/ Hydrocodone Bitart (Anexsia, [place] 7.5mg/325mg) 1 tab Q4HP PRN PO PAIN 07/26/18 20:00 07/29/18 18:42 Acetaminophen/ Hydrocodone Bitart ([place], Anexsia 5/325) 2 tab DAILYPRN PRN PO PAIN 07/28/18 17:15 07/29/18 02:00 Bisacodyl (Dulcolax Suppository) [address] CONSTIPATION 07/23/18 08:30 07/25/18 05:05 Bisacodyl (Dulcolax Tab) 10 mg BID PO 07/25/18 21:00 07/28/18 20:02 Docusate Sodium (Colace) 100 mg DAILY PO 07/17/18 09:00 07/29/18 08:36 Heparin Sodium (Heparin (Flush)) 200 units ASDIRECTED PRN IV SEE LABEL COMMENTS 07/16/18 23:45 07/27/18 23:52 Heparin Sodium (Porcine) (Heparin) ASDIRECTED PRN IV SEE LABEL COMMENTS 07/24/18 12:45 07/26/18 14:19 Heparin Sodium (Porcine) 35126 units/IV Miscellaneous Supplies 250 ml @ 11 mls/hr [id number] IV 07/24/18 13:00 07/29/18 14:43 Lidocaine (Lidoderm Patch) 1 patch QHS TD 07/19/18 21:00 07/28/18 21:58 Morphine Sulfate (Morphine Sulfate Inj) 2 mg Q30MP PRN IV BREAKTHROUGH PAIN 07/26/18 20:00 07/27/18 23:47 Non-Formulary Medication ( See Comment Field Below ) REMOVE LIDODERM PATCH DAILY XX 07/20/18 09:00 07/29/18 09:00 Sodium Biphosphate/ Sodium Phosphate (Fleet Enema) [address] NO RESULTS FROM DULCOLAX SUPPS 07/19/18 18:00 07/25/18 07:41 Sodium Chloride (Saline Lock Flush) 10 ml ASDIRECTED PRN IV SEE LABEL COMMENTS 07/16/18 23:45 07/27/18 23:52 Laboratory Tests 07/29/18 05:26 Red Blood Count 2.87 L, Mean Corpuscular Volume 87.1, Mean Corpuscular Hemoglobin 27.5, Mean Corpuscular Hemoglobin Concent 31.6 L, Red Cell D istribution Width 17.5 H, Anion Gap 8 Microbiology 07/27/18 Stool Occult Blood (BOBBI) - Final, Complete 07/26/18 Stool Occult Blood (BOBBI) - Final, Complete Objective Physical Examination General Exam: Positive: Alert, Cooperative, Moderate Distress Eye Exam: Positive: PERRLA, Conjunctiva & lids normal, EOMI ENT Exam: Positive: Atraumatic, Mucous membr. moist/pink, Pharynx Normal, Tongue Midline, Nares Patent, Ext Auditory Canal Nml, Pinna Normal Neck Exam: Positive: Supple, +2 carotid pulse wo bruit; Negative: JVD, thyromegaly, Lymphadenopathy Chest Exam: Positive: Clear to auscultation, Normal air movement; Negative: Rales, Rhonchi, Wheezing, Diminished Heart Exam: Positive: Tachycardic, Regular Rhythm; Negative: Bradycardic, Irregular Rhythm, Gallops, Murmurs, Rubs Telemetry: Positive: No significant arrhythmia, Sinus Abdomen Exam: Positive: Normal bowel sounds, Soft; Negative: BS Hyperactive, BS Hypoactive, Tenderness, Hepatospenomegaly, Mass, Hernia Female Exam: Positive: Nl Ext Genitalia Extremity Exam: Positive: Cyanosis, Edema, Normal pulses, Tenderness, Swelling; Negative: Clubbing Skin Exam: Positive: Nl turgor and temperature; Negative: Rash, Breakdown, Lesion, Pruritus Neuro Exam: Positive: Normal Gait, Normal Speech, Strength at 5/5 X4 ext, Normal Tone, Sensation Intact, Cranial Nerves 3-12 NL, Reflexes 2+ Psych Exam: Positive: Mental status NL, Mood NL, Memory Intact, Oriented x 3; Negative: Anxiety Assessment/Plan Assessment Patient is a 63-year-old female with left lower extremity extensive DVT, pain and swelling who underwent thrombolysis and stenting of her iliac veins with some improvement in her left lower extremity swelling. Patient also has a history of endometrial cancer requiring chemotherapy and will undergo a Port-A-Cath placement with possible discharge tomorrow. Patient will restart her Eliquis for her outpatient anticoagulation. The option of Lovenox was discussed with the patient but she does not want to give herself shots and wishes to continue with Eliquis. Plan Port-A-Cath placement tomorrow for chemotherapy access for her endometrial cancer. Continue heparin drip until discharge at which time the patient will begin her previous regimen of Eliquis. Patient was recommended to undergo Lovenox injections but does not wish to undergo injections and wants to take an oral medication and we will continue with Eliquis. Patient will need to elevate her left lower extremity as much as possible. Matteo Sandoval MD Jul 29, 2018 19:38
[2018-07-29] MEDS: LIDOCAINE 5% (LIDODERM) PATCH TD SCH (20:39)
[2018-07-29 22:00] VITALS: BP_SYST 130; BP_SYST 30; BP_DIAS 67
[2018-07-30] MEDS: ANEXSIA, NORCO 7.5MG/325MG TABLET(HYDROCODONE/APAP) PO PRN ×3 (02:48→14:46)
[2018-07-30] MEDS: HEPARIN DRIP 25,000 UNITS in APPROPRIATE DILUENT 1 EA IV SCH (05:13)
[2018-07-30 06:00] VITALS: BP 131/73
[2018-07-30] MEDS: SODIUM CHLORIDE 0.9% INJ 10 ML SYR IV SCH (06:06)
[2018-07-30 06:33] LABS: HEMATOCRIT 25.6 % (36.0-47.0); MEAN CORPUSCULAR HEMOGLOBIN 27.5 pg (27.0-33.0); MEAN CORPUSCULAR HGB CONC 31.3 g/dl (32.0-36.5); PLATELET COUNT, AUTOMATED 105 10^3/uL (150-450); RED BLOOD COUNT 2.91 10^6/uL (4.00-5.40)
[2018-07-30] MEDS: NORCO, ANEXSIA 5/325MG TABLET (HYDROcodone/ACETAMINOPHEN) PO PRN (06:49)
[2018-07-30 06:57] LABS: ALBUMIN 2.2 GM/DL (3.2-5.2); BLOOD UREA NITROGEN 13 MG/DL (7-18); CALCIUM LEVEL 8.4 MG/DL (8.8-10.2); CARBON DIOXIDE LEVEL 29 MEQ/L (21-32); CHLORIDE LEVEL 95 MEQ/L (98-107); CREATININE FOR GFR 0.57 MG/DL (0.55-1.30); GLOMERULAR FILTRATION RATE > 60.0 (>45); GLUCOSE, FASTING 103 MG/DL (70-100); POTASSIUM SERUM 4.2 MEQ/L (3.5-5.1); SODIUM LEVEL 132 MEQ/L (136-145)
[2018-07-30] MEDS: DOCUSATE SODIUM 100 MG CAP PO SCH (08:50)
[2018-07-30] MEDS: BISACODYL 5 MG TAB PO SCH (09:00)
[2018-07-30] MEDS: **NOTE PATIENT COMMENT** MISC XX SCH (09:00)
[2018-07-30] MEDS ORDERED: ceFAZolin 1GM INJ (J0690 PER 500MG) As Ordered ONE (11:24)
[2018-07-30] MEDS ORDERED: fentaNYL 100 MCG/2 ML INJECTION (J3010) As Ordered ONE (11:24)
[2018-07-30] MEDS ORDERED: MIDAZOLAM INJ 2 MG/2 ML VIAL (J2250) As Ordered ONE (11:24)
[2018-07-30] MEDS ORDERED: LIDOCAINE 2% MDV 20 ML VIAL As Ordered ONE (11:25)
[2018-07-30 13:00] VITALS: BP 140/74
[2018-07-30 13:30] VITALS: BP 148/74
[2018-07-30 14:00] VITALS: BP 152/81
[2018-07-30] MEDS ORDERED: HYDR-3716 PO (16:46)
--- NOTE | 2018-07-30 20:28 | DS.PDOC ---
Discharge Summary General Date of Admission Jul 16, 2018 at 16:30 Date of Discharge 07/30/2018 Attending Physician: Matteo Sandoval MD Discharge Summary PROCEDURES PERFORMED DURING STAY: Left lower extremity venous thrombolysis with inferior vena cava filter insertion and left iliac vein angioplasty and stenting. Right internal jugular vein tunneled central venous catheter was subcutaneous port placement. ADMITTING DIAGNOSES: 1. Left lower extremity DVT with extreme swelling and pain. Metastatic endometrial cancer. DISCHARGE DIAGNOSES: 1. Left lower extremity DVT with extreme swelling and pain. Metastatic endometrial cancer. COMPLICATIONS/CHIEF COMPLAINT: DVT. HISTORY OF PRESENT ILLNESS: Patient is a 63-year-old female admitted with extensive swelling pain and DVT in her left lower extremity. Patient had been complaining of the swelling and pain for approximately 1 month and was being treated as an outpatient on Eliquis. HOSPITAL COURSE: Patient was admitted and underwent left lower extremity venous thrombolysis with some improvement in her left lower extremity swelling and pain. Patient was also treated with heparin and transition to Eliquis prior to discharge home. Patient underwent placement of a right internal jugular vein tunneled central venous catheter with subcutaneous port placement for chemotherapy access. Patient was seen by pain management and consultation for her chronic left lower extremity pain and pelvic and sacral pain and was treated with oral narcotics. DISCHARGE MEDICATIONS: Please see below. ALLERGIES: Please see below. PHYSICAL EXAMINATION ON DISCHARGE: VITAL SIGNS: Please see below. GENERAL: Awake alert oriented 3 HEENT: Normal NECK: Supple with no carotid bruits CARDIOVASCULAR EXAMINATION: Regular rate and rhythm RESPIRATORY EXAMINATION: Clear to auscultation bilaterally ABDOMINAL EXAMINATION: Soft, nontender, nondistended with no palpable pulsatile masses. EXTREMITIES: Left lower extremity showed significant swelling and edema which was improved compared to prior to her admission SKIN: Warm and well-perfused NEUROLOGICAL EXAMINATION: No focal deficits PSYCHIATRIC EXAMINATION: Normal LABORATORY DATA: Please see below. IMAGING: Left lower extremity venous thrombolysis PROGNOSIS: Poor ACTIVITY: As tolerated. DIET: Regular DISCHARGE PLAN: Discharged to home on Eliquis DISPOSITION: 01 Home, Self-Care. DISCHARGE INSTRUCTIONS: 1. Follow-up in the office in one week. DISCHARGE CONDITION: Stable. TIME SPENT ON DISCHARGE: Greater than 45 minutes. Vital Signs/I&Os Vital Signs Date Time Temp Pulse Resp B/P (MAP) Pulse Ox O2 Delivery O2 Flow Rate FiO2 07/30/18 15:16 14 07/30/18 14:00 99.1 118 152/81 (104) 100 07/24/18 10:11 96 I&O- Last 24 Hours up to 6 AM 07/30/18 06:00 Intake Total 1098 ml Output Total 850 ml Balance 248 ml Laboratory Data Labs 24H Laboratory Tests 2 07/30/18 06:07: Nucleated Red Blood Cells % (auto) 0.0, Activated Partial Thromboplast Time 70.6H, Blood Urea Nitrogen 13, Creatinine 0.57, Sodium Level 132L, Potassium Level 4.2, Chloride Level 95L, Carbon Dioxide Level 29, Anion Gap 8, Glomerular Filtration Rate > 60.0, Calcium Level 8.4L, Phosphorus Level 2.0L, Albumin 2.2L CBC/BMP Laboratory Tests 07/30/18 06:07 Red Blood Count 2.91 L, Mean Corpuscular Volume 88.0, Mean Corpuscular Hemoglobin 27.5, Mean Corpuscular Hemoglobin Concent 31.3 L, Red Cell Distribution Width 17.9 H, Anion Gap 8 Microbiology Microbiology 07/27/18 Stool Occult Blood (BOBBI) - Final, Complete 07/26/18 Stool Occult Blood (BOBBI) - Final, Complete Discharge Medications Scheduled (B Complex) 1 Tab Tab, 1 TAB PO DAILY, (Reported) Apixaban Base (Eliquis) 5 Mg Tab, 5 MG PO BID, (Reported) Ascorbic Acid (Vitamin C) 500 Mg Tab, 500 MG PO DAILY, (Reported) Cholecalciferol (Vitamin D) 1,000 Unit Tab, 1,000 UNIT PO DAILY, (Reported) Fish Oil (Fish Oil) 1,000 Mg Cap, 1,000 MG PO DAILY, (Reported) Magnesium Oxide (Magnesium Oxide) 400 Mg Tab, 400 MG PO DAILY, (Reported) Oyster Shell Calcium (Calcium) 500 Mg Tab, 500 MG PO DAILY, (Reported) Scheduled PRN (Lidocaine/Prilocaine 2.5-2.5 %) 1 Cre Cre, 1 DOSE TOP PRN PRN for PAIN, (Reported) APPLY TO PORT Allergies Coded Allergies: No Known Drug Allergy (Verified Allergy, Unknown, 12/06/17) Matteo Sandoval MD Jul 30, 2018 20:28
--- NOTE | 2018-07-30 20:36 | ROOPDOC ---
Matteo Sandoval MD Jul 30, 2018 20:36
[2018-07-30] MEDS ORDERED: APIXABAN 5 MG TAB (ELIQUIS) PO SCH (21:00)
[2018-07-31 09:42] LABS: CA 125 41.1 U/ML (<30.2)
[2018-08-02] MEDS ORDERED: PYRI1TAB5 PO (10:49)
[2018-08-02] MEDS ORDERED: LIDO2.5C15 TOP (11:59)
--- NOTE | 2018-08-15 16:03 | REPIR ---
DATE OF PROCEDURE: 07/16/2018 ATTENDING SURGEON: Dr. Caleb Sandoval ASSISTANTS: Radha Chandra and Olga Bland PREOPERATIVE DIAGNOSIS: Left lower extremity deep venous thrombosis (DVT). POSTOPERATIVE DIAGNOSIS: Left lower extremity deep venous thrombosis (DVT). PROCEDURE: Ultrasound-guided left lesser saphenous vein cannulation, ultrasound-guided left popliteal vein cannulation, left common iliac vein, external iliac vein and common femoral vein angioplasty with 8 x 200 balloon, initiation of venous thrombolysis. INDICATION: The patient is a 63-year-old female with left lower extremity DVT and extensive swelling and pain. The patient will undergo a left lower extremity venous thrombolysis. Risks, benefits and alternative options were discussed with the patient. ANESTHESIA: Was local with 20 mL of 2% lidocaine. FLUORO TIME: 15.4 minutes. CONTRAST: 17 mL. HEPARIN: None. COMPLICATIONS: None. DRAINS: None. SPECIMENS: None. IMPLANTS: None. PROCEDURE: The patient was taken to the angiography suite, placed prone and the left lower extremity was prepped and draped in a standard surgical fashion. The left lesser saphenous vein was cannulated using ultrasound guidance with inability to pass the wire into the central system. The left popliteal vein was then cannulated with ultrasound guidance, catheter was advanced through the popliteal vein into the superficial femoral vein, common femoral vein, and used to cross through the occluded left common femoral, external iliac vein and common iliac vein with reentry into the inferior vena cava. A venogram was performed confirming intraluminal positioning within the inferior vena cava. The left common iliac vein, external iliac vein, and common femoral vein were then angioplasty with an 8 x 200 balloon after which an infusion catheter was placed and left lower extremity venous thrombolysis initiated. Dressings were applied. The patient tolerated the procedure well. All instruments, sponge and needle counts were correct at the end the case. There were no complications. Dr. Sandoval was present for directed the entire case. The patient was transferred to the ICU for left lower extremity venous thrombolysis.
--- NOTE | 2018-08-15 16:12 | REPIR ---
DATE OF PROCEDURE: 07/20/2018 ATTENDING SURGEON: Dr. Caleb Sandoval ASSISTANTS: Cody Moffett and Olga Murray. PREOPERATIVE DIAGNOSIS: Left lower extremity DVT. POSTOPERATIVE DIAGNOSIS: Left lower extremity DVT. PROCEDURE: Left lower extremity venous thrombolysis followup, left common iliac vein angioplasty and stent with a Wallstent left external iliac vein angioplasty and stent with a Wallstent. INDICATION: The patient is a 63-year-old female with left lower extremity DVT and significant swelling and pain in the left lower extremity. The patient has been undergoing thrombolysis with slight improvement and will undergo a lysis followup. Risks, benefits, alternative treatment options were discussed with the patient. ANESTHESIA: Local sedation with 2 mg Versed, 100 mcg of fentanyl and 10 mL of 2% lidocaine. FLUOROSCOPY TIME: 3.0 minutes. CONTRAST: 3 mL. SEDATION TIME: 11:55 a.m. to 13:02 a.m. for a total 67 minutes. COMPLICATIONS: None. DRAINS: None. SPECIMENS: None. IMPLANT: Left common iliac vein Wallstent, left external iliac vein Wallstent. DESCRIPTION OF PROCEDURE: The patient was taken to the angiography suite, placed supine on the prone on angiography room table and then prepped and draped in a standard surgical fashion. A venogram was performed showing the left common femoral vein to be patent with no residual thrombus but there was still complete occlusion of the left common iliac and external iliac veins. These were angioplasty and stented with Wallstents after which venogram showed good flow through this region. An infusion catheter was again replaced for continued thrombolysis. Dressings were then applied. The patient tolerated procedure well. All instrument, sponge, and needle counts were correct at the end the case. There were no complications. Dr. Sandoval was present for and directed the entire case. The patient was transferred to the intensive care unit (ICU) for continued left lower extremity venous thrombolysis.
--- NOTE | 2018-08-15 16:20 | REPIR ---
DATE OF PROCEDURE: 07/23/2018 ATTENDING SURGEON: Dr. Caleb Sandoval ASSISTANTS: Olga Chandra. PREOPERATIVE DIAGNOSIS: Left lower extremity DVT. POSTOPERATIVE DIAGNOSIS: Left lower extremity DVT. PROCEDURE: Lysis followup, left lower extremity venogram, left common iliac vein angioplasty and stent with a 10 x 40 Bard E-Luminex stent, left common femoral vein angioplasty stent with a 10 x 80 Bard E-Luminex stent, left superficial femoral vein angioplasty and stent with an 8 x 60 Bard E-Luminex stent, left external iliac vein angioplasty stent with a 10 x 80 Bard E-Luminex stent postdilated with an 8 x 20 balloon. INDICATION: The patient is a 63-year-old female with severe left lower extremity swelling and DVT who has been undergoing attempted thrombolysis and has continued swelling and will undergo venous lysis followup with possible angioplasty stent and/or atherectomy. Risks, benefits and alternative treatment options were discussed with the patient. ANESTHESIA: Local sedation with 3 mg Versed, 150 mcg of fentanyl. FLUOROSCOPY TIME: 4.7 minutes. CONTRAST: 8 mL. SEDATION TIME: From 16:52 to 18:14 for a total of 82 minutes. HEPARIN: 5000 units. COMPLICATIONS: None. DRAINS: None. SPECIMENS: None. IMPLANTS: Stents. DESCRIPTION OF PROCEDURE: The patient was taken to the angiography suite, placed supine on the angiography room table and then prepped and draped in a standard surgical fashion. A venogram was performed showing the stents to be occluded that were previously placed as well as occlusion of the left common and superficial femoral vein. The left common iliac vein underwent repeat angioplasty and stenting. The left common external iliac vein underwent angioplasty and stenting. The left common femoral vein underwent angioplasty and stenting and the left superficial femoral vein underwent angioplasty and stenting. A completion venogram showed good flow through this region. An infusion catheter was again placed and thrombolysis initiated. Dressings were then applied. The patient tolerated the procedure well. All instrument, sponge and needle counts were correct at the end the case. There were no complications. Dr. Sandoavl was present for and directed the entire case. The patient was transferred to the intensive care unit (ICU) for continued left lower extremity venous thrombolysis.
--- NOTE | 2018-08-15 16:34 | REPIR ---
DATE OF PROCEDURE: 07/30/2018 PREPROCEDURE DIAGNOSIS: Endometrial cancer. POSTPROCEDURE DIAGNOSIS: Endometrial cancer. PROCEDURE: Ultrasound guided right internal jugular vein cannulation, fluoroscopic guided right internal jugular vein 23 cm tunneled central venous catheter with subcutaneous port. SURGEON: Dr. Caleb Sandoval DISPLAYER: Estrella Reynolds and Radha Chandra. INDICATION: The patient is a 63-year-old female with endometrial cancer who requires access for chemotherapy and will undergo a Port-A-Cath placement. Risks, benefits, and alternative options were discussed with the patient. ANESTHESIA: Local with sedation with 1 mg Versed, 50 mcg of fentanyl and 20 mL of 2% lidocaine. FLUORO TIME: 0.1 minutes. CONTRAST: None. SEDATION TIME: 11:56 a.m. to 12:27 p.m. for a total of 31 minutes. COMPLICATIONS: None. DRAINS: None. SPECIMENS: None. PROCEDURE: The patient was taken to the angiography suite, placed supine on the angiography room table and then prepped and draped in a standard surgical fashion. The right internal jugular vein was cannulated using ultrasound guidance. The catheter was tunneled and placed through the introducer sheath into the superior vena cava right atrial junction under fluoroscopic guidance. Catheter was attached to a port after being cut to 23 cm. Port was placed within the pocket created in the chest. The wounds were closed using #3-0 Monocryl. The port was stable for use for access.
--- NOTE | 2018-08-15 16:52 | REPIR ---
DATE OF PROCEDURE: 07/24/2018 PREPROCEDURE DIAGNOSIS: Left lower extremity deep venous thrombosis (DVT). POSTPROCEDURE DIAGNOSIS: Left lower extremity deep venous thrombosis (DVT). PROCEDURE: Left lower extremity venous lysis followup, left lower extremity venogram. SURGEON: Dr. Caleb Sandoval. MATERIAL HANDLER FLOORPERSON: Radha Chandra and Olga Bland. INDICATION: The patient is a 63-year-old female with left lower extremity DVT and extensive swelling and endometrial cancer. The patient has been undergoing left lower extremity venous thrombolysis and has required stenting of the left common iliac, external iliac, common femoral and superficial femoral veins. The patient has slight improvement and will undergo a venous lysis followup. Risks, benefits and alternative treatment options were discussed with the patient. ANESTHESIA: Local with sedation 1 mg Versed, 50 mcg of fentanyl. SEDATION TIME: From 12:10 a.m. to 12:35 p.m. for a total 25 minutes. HEPARIN: 5000 units. COMPLICATIONS: None. DRAINS: None. SPECIMENS: None. IMPLANTS: None. PROCEDURE: The patient was taken to the angiography suite, placed prone on the angiography room table and a venogram was performed. This showed good flow through the stented regions with only minimal thrombus remaining and infusion catheter again was placed and thrombolysis reinitiated. Dressings were then applied. The patient tolerated the procedure well. All instrument, sponge and needle counts were correct at the end the case. There were no complications. Dr. Sandoval was present for and directed the entire case. The patient was transferred to the intensive care unit (ICU) for continued left lower extremity venous thrombolysis.
--- NOTE | 2018-08-16 14:10 | REPIR ---
DATE OF PROCEDURE: 07/16/2018 ATTENDING SURGEON: Dr. Caleb Sandoval ASSISTANTS: Olga Bland and Radha Chandra. PREOPERATIVE DIAGNOSES: Left lower extremity swelling, left lower extremity pain with extensive left lower extremity DVT, endometrial cancer with metastatic disease. POSTOPERATIVE DIAGNOSES: Left lower extremity swelling, left lower extremity pain with extensive left lower extremity DVT, endometrial cancer with metastatic disease. PROCEDURE: Ultrasound-guided right basilic vein cannulation, inferior vena cava catheter placement with venogram, inferior vena cava filter placement with Celect vena cava filter, fluoroscopic-guided right basilic vein 37 cm PICC line placement. INDICATION: Patient is a 63-year-old female with metastatic endometrial cancer and severe left lower extremity swelling and pain who will undergo an attempted thrombolysis. Risks, benefits, and alternative treatment options were discussed with the patient. ANESTHESIA: Local with 8 mL of 2% lidocaine. FLUOROSCOPY TIME: 5.2 minutes. CONTRAST: 3 mL. HEPARIN: None. COMPLICATIONS: None. DRAINS: None. SPECIMENS: None. IMPLANT: Inferior vena cava filter with Celect filter. DESCRIPTION OF PROCEDURE: Patient was taken to the angiography suite, placed supine on the angiography room table, and the right upper extremity was prepped and draped in a standard surgical fashion. Ultrasound was used to guide cannulation of the right basilic vein. A catheter was then advanced through the basilic vein into the central venous system and into the inferior vena cava. An inferior vena cavogram was performed showing the inferior vena cava to be widely patent. The Celect filter was placed below level of renal veins, which were identified. The catheter was then removed, and a 37 cm PICC line was placed in the access site in the right basilic vein. Both ports were aspirated, noted to aspirate easily, and then flushed with heparinized saline. Dressings were then applied. Patient tolerated the procedure well. All instrument, sponge, and needle counts were correct at the end the case. There were no complications. Dr. Sandoval was present for and directed the entire case. Patient was transferred to the recovery room and subsequently to the intensive care unit (ICU) in stable condition.
== END 2018-07-30 18:25 | disposition home or self-care (01) | DRG 182 ==
LOC: M ICU 16:30 → M MSPAV 07-26 11:35
PROVIDERS: ADMIT Surgery Vascular Surgery; ATTEND Surgery Vascular Surgery
PROC: 067D3ZZ Dilation of Left Common Iliac Vein, Percutaneous Approach (ICD-10-PCS; principal; 2018-07-16)
PROC: 067G3ZZ Dilation of Left External Iliac Vein, Percutaneous Approach (ICD-10-PCS; 2018-07-16)
PROC: 067N3ZZ Dilation of Left Femoral Vein, Percutaneous Approach (ICD-10-PCS; 2018-07-16)
PROC: 3E03317 Introduction of Other Thrombolytic into Peripheral Vein, Percutaneous Approach (ICD-10-PCS; 2018-07-16)
PROC: 06H03DZ Insertion of Intraluminal Device into Inferior Vena Cava, Percutaneous Approach (ICD-10-PCS; 2018-07-16)
PROC: 05HY33Z Insertion of Infusion Device into Upper Vein, Percutaneous Approach (ICD-10-PCS; 2018-07-16)
PROC: B5191ZA Fluoroscopy of Inferior Vena Cava using Low Osmolar Contrast, Guidance (ICD-10-PCS; 2018-07-16)
PROC: 067D3DZ Dilation of Left Common Iliac Vein with Intraluminal Device, Percutaneous Approach (ICD-10-PCS; 2018-07-20)
PROC: 067G3DZ Dilation of Left External Iliac Vein with Intraluminal Device, Percutaneous Approach (ICD-10-PCS; 2018-07-20)
PROC: 067D3DZ Dilation of Left Common Iliac Vein with Intraluminal Device, Percutaneous Approach (ICD-10-PCS; 2018-07-23)
PROC: 067G3DZ Dilation of Left External Iliac Vein with Intraluminal Device, Percutaneous Approach (ICD-10-PCS; 2018-07-23)
PROC: 067N3DZ Dilation of Left Femoral Vein with Intraluminal Device, Percutaneous Approach (ICD-10-PCS; 2018-07-23)
PROC: B51C1ZZ Fluoroscopy of Left Lower Extremity Veins using Low Osmolar Contrast (ICD-10-PCS; 2018-07-23)
PROC: 3E03317 Introduction of Other Thrombolytic into Peripheral Vein, Percutaneous Approach (ICD-10-PCS; 2018-07-23)
PROC: B51C1ZZ Fluoroscopy of Left Lower Extremity Veins using Low Osmolar Contrast (ICD-10-PCS; 2018-07-24)
PROC: 3E03317 Introduction of Other Thrombolytic into Peripheral Vein, Percutaneous Approach (ICD-10-PCS; 2018-07-24)
PROC: 0JH63WZ Insertion of Totally Implantable Vascular Access Device into Chest Subcutaneous Tissue and Fascia, Percutaneous Approach (ICD-10-PCS; 2018-07-30)
PROC: 02HV33Z Insertion of Infusion Device into Superior Vena Cava, Percutaneous Approach (ICD-10-PCS; 2018-07-30)
PROC: B5131ZA Fluoroscopy of Right Jugular Veins using Low Osmolar Contrast, Guidance (ICD-10-PCS; 2018-07-30)
PROC: B543ZZA Ultrasonography of Right Jugular Veins, Guidance (ICD-10-PCS; 2018-07-30)
DX: I82.402 Acute embolism and thrombosis of unspecified deep veins of left lower extremity (principal); C78.00 Secondary malignant neoplasm of unspecified lung; C78.7 Secondary malignant neoplasm of liver and intrahepatic bile duct; C54.1 Malignant neoplasm of endometrium; Z79.899 Other long term (current) drug therapy; I82.422 Acute embolism and thrombosis of left iliac vein

== ENCOUNTER 2018-08-03 12:33 | Outpatient (RCR) | payer BC ==
[2018-05-15 14:12] LABS: HEMATOCRIT 28.1 % (37.0-51.0); HEMOGLOBIN 9.3 g/dl (12.0-18.0); LYMPH % 21.8 % (10.0-58.5); MEAN CORPUSCULAR HEMOGLOBIN 29.9 pg (26.0-32.0); MEAN CORPUSCULAR HGB CONC 33.1 g/dl (31.0-36.0); MEAN CORPUSCULAR VOLUME 90.3 fl (80.0-97.0); NEUTROPHILS # 3.3 10^3/uL (2.0-7.8); NEUTROPHILS % 68.5 % (37.0-92.0); RED BLOOD COUNT 3.11 10^6/uL (4.2-6.3); WHITE BLOOD COUNT 4.8 10^3/uL (4.1-10.9)
[2018-05-15 14:28] VITALS: BP 142/83
[2018-05-15 14:48] LABS: PERCENT SATURATION 12.1 % (13.2-45.0)
[2018-05-15 14:53] LABS: ALBUMIN 4.1 GM/DL (3.5-5.2); BLOOD UREA NITROGEN 29 MG/DL (6-20); CALCIUM LEVEL 9.5 MG/DL (8.5-10.2); CARBON DIOXIDE LEVEL 28 MEQ/L (23-31); CHLORIDE LEVEL 100 MMOL/L (98-107); CREATININE FOR GFR 1.03 MG/DL (0.60-1.10); GLOMERULAR FILTRATION RATE 57.8 (>45); GLUCOSE, FASTING 106 MG/DL (70-105); POTASSIUM SERUM 3.6 MMOL/L (3.5-5.1); SODIUM LEVEL 137 MMOL/L (136-145); TOTAL PROTEIN 6.9 GM/DL (6.4-8.3)
--- NOTE | 2018-05-16 09:45 | MEDONC ---
REVIEW PATIENT FOLLOWUP DATE OF SERVICE: 05/15/2018 DIAGNOSIS: Metastatic endometrial cancer. TREATMENT SUMMARY: 1. Metastatic endometrial cancer with endometrial biopsy 06/2017 showing endometrial adenocarcinoma, FIGO grade 2 with PET scan from 07/2017 showing extensive hypermetabolic uptake noted in a large heterogenous pelvic mass, metastatic hypermetabolic uptake involving bilateral iliac, paraaortic lymph nodes, liver metastatic lesions, pulmonary parenchymal metastatic lesions, hilar and mediastinal nodes, left axillary and left neck adenopathy. 2. Received carboplatin/ paclitaxel chemotherapy from August 2017 to November 2017 with improvement in CA [address] scan findings. HISTORY OF PRESENT ILLNESS: Riya reports a good appetite. Her weight has been stable. She reports no fevers. No night sweats. She has had fair energy levels and has been tired a lot, but she has been tired for the past two years. She reports occasional headaches which are not bad. No dizziness. She has had decreased visual acuity for many years, but she wanted to hold off on going to an eye doctor at this time. No chest pain. She has had no shortness of breath. No cough. No nausea. No vomiting. No abdominal pains. No diarrhea. No constipation. She has what she calls funny sensations or tingling on her lower abdominal or pelvic area at times, but these have not been significant. No urinary problems. No rectal bleeding. No vaginal bleeding. No epistaxis. No peripheral edema. She reports numbness and tingling on her fingers which she has had for years. She has no peripheral neuropathy symptoms on her toes. On physical exam, she weighed 56.8 kg. Temperature 97 degrees Fahrenheit. Blood pressure 142/83. Pulse rate 91 per minute. Oxygen saturation 100% on room air. She had pinkish conjunctivae, anicteric sclerae. No oral mucosal lesions. No palpable cervical nodes. Lungs were clear. No rales, no rhonchi, no wheeze. S1, S2 regular. No murmur. No gallop. Abdomen was soft, nontender, no guarding. No hepatosplenomegaly. Positive bowel sounds. Extremities - no calf swelling, no calf tenderness, no pedal edema. IMPRESSION/PLAN: Riya is currently on close followup for metastatic endometrial cancer. Her CA-125 level came back normal today. Her CBC showed hemoglobin level of 9.3. Her iron indices came back consistent with an anemia of chronic disease. We have a soluble transferrin receptor pending from today. If this comes back not consistent with iron deficiency, we will be discontinuing her oral iron supplements. I discussed that if her hemoglobin level continues to stay below 10 g/dl, we should do a bone marrow aspiration and biopsy to assess for myelodysplastic syndrome. Her creatinine level today came back stable at 1.03 mg/gl. Will hold off on doing another ultrasound for her known left sided hydronephrosis. Followup appointment in 2 months. Electronically Signed by Cherie Arana MD, FACP 06/03/2018 04:12 P DD: Cherie Arana MD, FACP 05/15/2018 05:42 P DT: kristin 05/16/2018 09:32 A CC: Greer Hernandez DO
--- NOTE | 2018-06-04 18:15 | MEDONCTEEN ---
Date/Time of Encounter Date of Encounter: Jun 04, 2018 Time of Encounter: 18:08 Telephone Encounter Riya called to report groin pain and buttocks pain x 2 weeks. I recommended a CT of the abdomen and pelvis to assess for disease progression. Riya did not want this to be done with contrast although I discussed with her that this would not give an accurate picture. NABILA STONE MD Jun 04, 2018 18:14
[2018-06-22 12:59] VITALS: BP 124/80
[2018-06-22 13:13] LABS: HEMATOCRIT 28.5 % (36.0-47.0); HEMOGLOBIN 8.9 g/dl (12.0-15.5); LYMPH % 11.9 % (24.0-44.0); MEAN CORPUSCULAR HEMOGLOBIN 26.9 pg (27.0-33.0); MEAN CORPUSCULAR HGB CONC 31.2 g/dl (32.0-36.5); MEAN CORPUSCULAR VOLUME 86.2 fl (80.0-96.0); NEUTROPHILS # 7.7 10^3/uL (1.8-7.7); NEUTROPHILS % 81.2 % (36.0-66.0); RED BLOOD COUNT 3.31 10^6/uL (4.00-5.40); WHITE BLOOD COUNT 9.5 10^3/uL (4.0-10.0)
[2018-06-22 13:52] LABS: ALBUMIN 3.9 GM/DL (3.5-5.2); BLOOD UREA NITROGEN 16 MG/DL (6-20); CALCIUM LEVEL 9.4 MG/DL (8.5-10.2); CARBON DIOXIDE LEVEL 26 MEQ/L (23-31); CHLORIDE LEVEL 93 MMOL/L (98-107); GLOMERULAR FILTRATION RATE 48.5 (>45); GLUCOSE, FASTING 100 MG/DL (70-105); POTASSIUM SERUM 4.5 MMOL/L (3.5-5.1); TOTAL PROTEIN 7.1 GM/DL (6.4-8.3)
[2018-06-22 13:55] LABS: SODIUM LEVEL 130 MMOL/L (136-145)
[2018-06-22 14:05] LABS: PERCENT SATURATION 9.7 % (13.2-45.0)
--- NOTE | 2018-06-23 10:58 | MEDONC ---
REVIEW PATIENT FOLLOWUP DATE OF SERVICE: 06/22/2018 DIAGNOSIS: Metastatic endometrial cancer. TREATMENT SUMMARY: 1. Metastatic endometrial cancer with endometrial biopsy 06/2017 showing endometrial adenocarcinoma, FIGO grade 2 with PET scan from 07/2017 showing extensive hypermetabolic uptake noted in a large heterogenous pelvic mass, metastatic hypermetabolic uptake involving bilateral iliac, paraaortic lymph nodes, liver metastatic lesions, pulmonary parenchymal metastatic lesions, hilar and mediastinal nodes, left axillary and left neck adenopathy. 2. Received carboplatin/ paclitaxel chemotherapy from August 2017 to November 2017 with improvement in CA [address] scan findings. 3. CT scan from 05/2018 showing disease progression. HISTORY OF PRESENT ILLNESS: Riya reported groin pain and buttock pain two weeks ago and she was sent for a CT scan. In the interim, she developed left leg pain and was seen in [facility] ER where she had a Doppler ultrasound which showed thrombus in the common femoral vein. She was started on Eliquis and has been on Eliquis since that time. At present, Riya reports a good appetite. However, she has been losing weight. No fevers. She has low energy levels at present. No headaches. No dizziness. She has had slight fogginess in her vision, which could be secondary to her tiredness according to her. No chest pain. No shortness of breath. She has had a mild dry cough. No nausea. No vomiting. No abdominal pains. She has a throbbing pain in her left pelvis and she also feels a lump on her perineal area. She has had no diarrhea, but she has had constipation. No urinary problems. No rectal bleeding. No urinary bleeding. No vaginal bleeding. No epistaxis. She is particularly troubled by left lower extremity edema, which has been getting worse this past week. On physical exam, she weighed 57.1 kg. Temperature 99 degrees Fahrenheit. Blood pressure 124/80. Pulse rate 100 per minute. Pulse oximetry 100% on room air. She had pinkish conjunctiva, anicteric sclerae. No oral mucosal lesions. No palpable cervical nodes. Lungs were clear. No rales, no rhonchi, no wheeze. S1 and S2 regular. No murmur. No gallop. Abdomen was soft, nontender, no guarding. Extremities - she had significant edema on her left lower extremity. No edema on the right lower extremity. IMPRESSION/PLAN: Riya's CT scan from a week ago showed disease progression with disease progression in her hepatic metastases and her left hydronephrosis. There was also note of a possible pathologic fracture in the left inferior pubic ramus and posterior ischium. I discussed second line treatment with Riya. Since it has been more than six months since her last chemotherapy, it would be reasonable to restart her on paclitaxel/carboplatin chemotherapy. We are obtaining MSI-H testing as well as ER/OK status on her previous biopsy. For her left lower extremity edema, I suggested that she go to [facility] ER for further evaluation, particularly for a referral to a vascular surgeon and possibly for her to start heparin. I also think she should have an orthopedic evaluation. In the meantime, we will arrange for her to start chemotherapy shortly. Electronically Signed by Cherie Arana MD, FACP 06/24/2018 01:20 P DD: Cherie Arana MD, FACP 06/22/2018 02:17 P DT: adan 06/23/2018 10:38 A CC: Greer Hernandez DO
--- NOTE | 2018-06-25 20:03 | MEDONCTEEN ---
Date/Time of Encounter Date of Encounter: Jun 25, 2018 Time of Encounter: 20:01 Telephone Encounter Patient was in [facility] ER. She was advised to go on Lovenox but wanted to hold off on this. Discussed a referral to vascular surgeon. Chemotherapy is scheduled for next week. NABILA STONE MD Jun 25, 2018 20:03
[2018-06-26 10:53] LABS: CA 125 10.5 U/ML (<30.2)
[2018-07-03 08:03] VITALS: BP 111/74
[2018-07-03 08:18] LABS: HEMATOCRIT 26.2 % (36.0-47.0); HEMOGLOBIN 8.1 g/dl (12.0-15.5); LYMPH % 11.9 % (24.0-44.0); MEAN CORPUSCULAR HEMOGLOBIN 26.2 pg (27.0-33.0); MEAN CORPUSCULAR HGB CONC 30.9 g/dl (32.0-36.5); MEAN CORPUSCULAR VOLUME 84.7 fl (80.0-96.0); NEUTROPHILS # 6.4 10^3/uL (1.8-7.7); NEUTROPHILS % 79.6 % (36.0-66.0); RED BLOOD COUNT 3.09 10^6/uL (4.00-5.40); WHITE BLOOD COUNT 8.1 10^3/uL (4.0-10.0)
[2018-07-03 08:36] LABS: ALBUMIN 3.7 GM/DL (3.5-5.2); CALCIUM LEVEL 9.6 MG/DL (8.5-10.2); CREATININE FOR GFR 1.17 MG/DL (0.60-1.10); GLOMERULAR FILTRATION RATE 49.7 (>45); POTASSIUM SERUM 4.1 MMOL/L (3.5-5.1); TOTAL PROTEIN 6.8 GM/DL (6.4-8.3)
--- NOTE | 2018-07-05 07:22 | MEDONC ---
REVIEW PATIENT FOLLOWUP DATE OF SERVICE: 07/03/2018 DIAGNOSIS: Metastatic endometrial cancer. TREATMENT SUMMARY: 1. Metastatic endometrial cancer with endometrial biopsy 06/2017 showing endometrial adenocarcinoma, FIGO grade 2 with PET scan from 07/2017 showing extensive hypermetabolic uptake noted in a large heterogenous pelvic mass, metastatic hypermetabolic uptake involving bilateral iliac, paraaortic lymph nodes, liver metastatic lesions, pulmonary parenchymal metastatic lesions, hilar and mediastinal nodes, left axillary and left neck adenopathy. 2. Received carboplatin/ paclitaxel chemotherapy from August 2017 to November 2017 with improvement in CA [address] scan findings. 3. CT scan from 05/2018 showing disease progression to start Carboplatin/Paclitaxel chemotherapy Jun 2018. HISTORY OF PRESENT ILLNESS: Riya was sent to the ER on her last visit here more than a week ago as she had increased left leg swelling. She was advised to switch to enoxaparin, but she decided to hold off on this. She was sent home and advised to continue on Eliquis. At present, Riya reports a good appetite, however she has had very poor intake because of pain. She also has had stable weight. She has had no fevers, but she has had borderline temperatures up to 99 degrees Fahrenheit. She also reports night sweats. She has had no headaches. No dizziness. No chest pain. No shortness of breath. No cough. No nausea. No vomiting. She reports that whenever she eats, food does not settle right, but she has had regular bowel movements, mostly constipation, which has been better with use of Colace. No diarrhea. No easy bruising. No rectal bleeding. No urinary bleeding. No vaginal bleeding. No nosebleeds. She has no edema on the right leg. On physical exam, she weighed 58.2 kg. Temperature 98.7 degrees Fahrenheit. Heart rate 100 per minute. Blood pressure 111/74. Pulse oximetry 100% on room air. She had pinkish conjunctiva, anicteric sclerae. No oral mucosal lesions. No palpable cervical nodes. Lungs were clear. No rales, no rhonchi, no wheeze. S1 and S2 regular. Abdomen was soft, nontender. No guarding. Extremities - no calf tenderness on the right leg, but she had increased swelling on the left leg, although this was slightly improved since her last visit here. IMPRESSION/PLAN Riya is scheduled to restart carboplatin/paclitaxel chemotherapy today. Her CBC showed moderate anemia, hemoglobin level 8.1. I recommended a blood transfusion as her hemoglobin level would presumably go down further with chemotherapy. However, Riya did not want to have a blood transfusion. I also discussed an alternative, which is an erythropoiesis stimulating agent such as Procrit. I discussed risks of this. She did not want to proceed with this as well, but may consider at some point in the future. Since she has moderate anemia, I am writing orders for a 20% decreased dose of chemotherapy. She has agreed to this. In terms of her anticoagulation, I did recommend switching to Lovenox since she has increased swelling on her left leg, but she wanted to hold off on this and to remain on Eliquis for now. I also discussed that denosumab has been shown to be beneficial in terms of lowering the chances of fracture as well as decreasing bone pain from bone metastases in solid tumors. There is a risk for osteonecrosis of the jaw with denosumab and this risk increases with dental procedures and it would therefore be prudent for her to have dental evaluation prior to starting denosumab. I recommended that she have a dental evaluation prior to starting denosumab, and she promised to arrange for a dental evaluation. Riya is scheduled to see Dr. Sandoval for her history of deep vein thrombosis (DVT) next week. She has also been referred to Dr. Chambers for the CT scan findings of a possible fracture in her left posterior ischium. Follow-up appointment in 10 days. Electronically Signed by Cherie Arana MD, FACP 07/16/2018 12:46 P DD: Cherie Arana MD, FACP 07/03/2018 06:18 P DT: adan 07/05/2018 07:01 A CC: Greer Hernandez DO
[2018-07-16 09:52] VITALS: BP 120/72
[2018-07-16 10:01] LABS: HEMATOCRIT 23.7 % (36.0-47.0); HEMOGLOBIN 7.9 g/dl (12.0-15.5); LYMPH % 7.3 % (24.0-44.0); MEAN CORPUSCULAR HEMOGLOBIN 28.4 pg (27.0-33.0); MEAN CORPUSCULAR HGB CONC 33.3 g/dl (32.0-36.5); MEAN CORPUSCULAR VOLUME 85.3 fl (80.0-96.0); NEUTROPHILS # 12.9 10^3/uL (1.8-7.7); NEUTROPHILS % 86.5 % (36.0-66.0); RED BLOOD COUNT 2.78 10^6/uL (4.00-5.40); WHITE BLOOD COUNT 14.9 10^3/uL (4.0-10.0)
[2018-07-16 10:35] LABS: ALBUMIN 3.9 GM/DL (3.5-5.2); BLOOD UREA NITROGEN 15 MG/DL (6-20); CALCIUM LEVEL 9.3 MG/DL (8.5-10.2); CARBON DIOXIDE LEVEL 28 MEQ/L (23-31); CHLORIDE LEVEL 91 MMOL/L (98-107); CREATININE FOR GFR 1.13 MG/DL (0.60-1.10); GLOMERULAR FILTRATION RATE 51.8 (>45); GLUCOSE, FASTING 112 MG/DL (70-105); POTASSIUM SERUM 4.8 MMOL/L (3.5-5.1); SODIUM LEVEL 127 MMOL/L (136-145); TOTAL PROTEIN 6.7 GM/DL (6.4-8.3)
[2018-07-16 10:55] LABS: PERCENT SATURATION 13.6 % (13.2-45.0)
--- NOTE | 2018-07-17 07:54 | MEDONC ---
REVIEW PATIENT FOLLOWUP: DATE OF SERVICE: 07/16/2018 DIAGNOSIS: Metastatic endometrial cancer. TREATMENT SUMMARY: 1. Metastatic endometrial cancer with endometrial biopsy 06/2017 showing endometrial adenocarcinoma, FIGO grade 2 with PET scan from 07/2017 showing extensive hypermetabolic uptake noted in a large heterogenous pelvic mass, metastatic hypermetabolic uptake involving bilateral iliac, paraaortic lymph nodes, liver metastatic lesions, pulmonary parenchymal metastatic lesions, hilar and mediastinal nodes, left axillary and left neck adenopathy. 2. Received carboplatin/ paclitaxel chemotherapy from August 2017 to November 2017 with improvement in CA [address] scan findings. 3. CT scan from 05/2018 showing disease progression to start Carboplatin/Paclitaxel chemotherapy Jun 2018. HISTORY OF PRESENT ILLNESS: Riya reports that she had spasms in her abdominal wall following the first cycle of carboplatin/paclitaxel chemotherapy. She also had burning on urination but this has resolved. No fevers. She also had slight nausea for which she drank florence júnior which did help. No vomiting. She reports a good appetite but she feels that she cannot eat because of her abdominal pains and her hip pain. However, her weight has been stable. She is currently on hydrocodone/acetaminophen for hip pain. She reports no night sweats. She has been fairly tired from her hip discomfort. No headaches. No dizziness. No chest pain. No shortness of breath. No cough. No vomiting. She has had constipation. She has no easy bruising aside from the bruising on her intravenous site insertion. No rectal bleeding. No urinary bleeding. No vaginal bleeding. She has used to have nose bleeds, but now that she has a humidifier, this has stopped. No mucositis. She continues to have significant left lower extremity edema. On physical exam she weighed 57.1 kg. Temperature 97.1. Pulse rate 109 per minute. Blood pressure 120/72, pulse oximetry 100% in room air. She had pinkish conjunctivae, anicteric sclerae. No palpable cervical nodes. No oral mucositis. Lungs were clear. No rales, rhonchi, or wheeze. S1, S2 regular. Abdomen was soft, nontender. No guarding. Positive bowel sounds. Extremities - no calf swelling, no calf tenderness on the right lower extremity. Significant edema on the left lower extremity. IMPRESSION AND PLAN: Riya started carboplatin/paclitaxel chemotherapy 11 days ago for metastatic endometrial cancer. We had started at 20% dose reduction of chemo because she had significant anemia and she declined a blood transfusion or Procrit injections. She has had a few problems post first cycle of chemotherapy but is willing to continue with another cycle. Riya's hemoglobin today came down further to 7.9. I discussed red blood cell transfusion as well as erythropoiesis stimulating agent. She wanted more time to think about the erythropoiesis stimulating agent/Procrit. On further discussion, she agreed to have a blood transfusion. She is scheduled for her next cycle of chemotherapy next week. She has also been evaluated by Dr. Sandoval of vascular surgery and a thrombolysis is being planned for her. Her platelet count today was adequate for any procedures. I had previously discussed starting her on denosumab for her bone metastasis but she wanted to hold off on this at this time as she has not had a dental appointment evaluation yet. She was referred to Dr. Chandler for the CT scan showing a possible hip fracture, but Dr. Chandler advised us to refer her to Dr. Chambers. She was scheduled to see Dr. Chambers last week but could not keep her appointment because of weather issues. She has obtained an appointment with another orthopaedic surgeon, Dr. Burton here in [place]. Will schedule second cycle of chemotherapy. Electronically Signed by Cherie Arana MD, FACP 07/24/2018 09:25 P DD: Cherie Arana MD, FACP 07/16/2018 05:04 P DT: alfred 07/17/2018 07:40 A CC: DO Matteo Higgins MD
[2018-07-17 09:58] LABS: CA 125 36.8 U/ML (<30.2)
[2018-08-02 09:13] VITALS: BP 127/74
[2018-08-02 11:15] VITALS: BP 136/84
[2018-08-02 11:49] LABS: HEMATOCRIT 24.3 % (36.0-47.0); LYMPH % 7.8 % (24.0-44.0); MEAN CORPUSCULAR HEMOGLOBIN 29.7 pg (27.0-33.0); MEAN CORPUSCULAR HGB CONC 32.9 g/dl (32.0-36.5); MEAN CORPUSCULAR VOLUME 90.3 fl (80.0-96.0); NEUTROPHILS # 13.4 10^3/uL (1.8-7.7); NEUTROPHILS % 86.2 % (36.0-66.0); RED BLOOD COUNT 2.69 10^6/uL (4.00-5.40); WHITE BLOOD COUNT 15.5 10^3/uL (4.0-10.0)
[2018-08-02 12:01] LABS: ALBUMIN 3.3 GM/DL (3.5-5.2); BLOOD UREA NITROGEN 19 MG/DL (6-20); CARBON DIOXIDE LEVEL 29 MEQ/L (23-31); CREATININE FOR GFR 1.04 MG/DL (0.60-1.10); GLUCOSE, FASTING 118 MG/DL (70-105); POTASSIUM SERUM 4.4 MMOL/L (3.5-5.1); TOTAL PROTEIN 6.6 GM/DL (6.4-8.3)
[2018-08-02 12:17] LABS: SODIUM LEVEL 127 MMOL/L (136-145)
[2018-08-02 12:18] LABS: CHLORIDE LEVEL 90 MMOL/L (98-107)
[~2018-08-03] VITALS: Ht 160 cm; Wt 65.4 kg
[~2018-08-03 12:33] MED LIST changes: +CARBOPLATIN IV ONE; +FAMOTIDINE 20 MG IV IV ONE; +FOSAPREPITANT PERIPHERAL LINE 30 MIN INFUSION (PREMIX) IV ONE; +LORAZEPAM 2 MG/ML IVP PRN; +MIDAZOLAM INJ 2 MG/2 ML VIAL (J2250) As Ordered ONE; -MORP1TAB20 PO; -NORC7.5T35 PO; +NS IV ONE; +PACLITAXEL IV ONE; +PALONOSETRON 250 MCG IV IV ONE; +PEGFILGRASTIM 6 MG/0.6ML SYR (NEULASTA) (J2505 PER 6MG) SC ONE; +SODIUM CHLORIDE 0.9% INJ 10 ML SYR IV PRN; +dexameTHASONE 20 MG IV IV ONE; +diphenhydrAMINE 25 MG IV IV ONE; +diphenhydrAMINE 50 MG PO PO ONE; +fentaNYL 100 MCG/2 ML INJECTION (J3010) As Ordered ONE
[2018-08-03 12:52] VITALS: BP 129/80
[2018-08-03 13:24] LABS: APPEARANCE, URINE CLEAR (CLEAR); BACTERIA, URINE AUTO NEGATIVE (NEGATIVE); BILIRUBIN, URINE AUTO NEGATIVE (NEGATIVE); BLOOD, URINE BLOOD NEGATIVE (NEGATIVE); COLOR, URINE YELLOW (YELLOW); GLUCOSE, URINE (UA) AUTO NEGATIVE (NEGATIVE); KETONE, URINE AUTO TRACE mg/dL (NEGATIVE); LEUKOCYTE ESTERASE, URINE AUTO NEGATIVE (NEGATIVE); MUCUS, URINE SMALL (NEGATIVE); NITRITE, URINE AUTO NEGATIVE (NEGATIVE); PROTEIN, URINE AUTO NEGATIVE (NEGATIVE); RBC, URINE AUTO 2 /HPF (0-3); SPECIFIC GRAVITY URINE AUTO 1.019 (1.002-1.035); SQUAMOUS EPITHELIAL CELL UR AU 0 /HPF (0-6); WBC, URINE AUTO 0 /HPF (0-3)
--- NOTE | 2018-08-06 14:05 | MEDONC ---
[facility] PROGRESS NOTE DATE OF SERVICE: 08/02/2018 PHYSICIANS INVOLVED IN THE PATIENT'S CARE INCLUDE: Dr. Matteo Sandoval from vascular surgery, Dr. Greer Hernandez, Lynda Sadler, [place]. REASON FOR VISIT: Continuing management of metastatic endometrial cancer which Dr. Crespo was doing quite wonderfully up until Dr. Crespo moved on to another state. Patient is alone today in the office. She may have some relative waiting outside, but she was alone in the exam room. Patient is very angry, voices it quite expressively, and patient is in discomfort and standing up because sitting down causes her significant pain in especially her left leg which is markedly swollen. Patient somehow has the feeling that everything in her chart is inaccurate and incorrect and nobody is listening to her complaints or issues. Patient lives alone. PRIMARY DIAGNOSIS: Patient diagnosed approximately around June of 2017. Endometrial biopsy showed endometrial adenocarcinoma, according to Dr. Arana's note it was grade 2. PET scan (Jul 2017) showed extensive hypermetabolic uptake in a large pelvic mass, metastatic uptake in both iliac, paraaortic lymph nodes, metastatic liver lesion, pulmonary parenchyma metastatic lesions, hilar nodes, mediastinal nodes, left axillary and left neck nodes. a. From August 2017 through November 2017 patient received Carboplatin/Taxol with improvements in her CA-125 and the CAT scan. b. May 2018 CAT scan suggested progression of disease so restarted on Carboplatin/Taxol chemotherapy. c. Patient had CAT scans, done at [facility].January 15, 2018, off Carboplatin/Taxol as of November 2017 and CAT scan had reported that near complete resolution of the previously noted parenchymal lung nodules, decreased metastatic lesion in the liver, decreased pelvic mass, but new left sided hydronephrosis noted, possibly due to encasement of the distal ureter by the smaller mass. CT urography could be helpful. Resolved paraaortic lymphadenopathy. May 2018 CT showed progression of disease, this was done 15 of June to be exact and it said the liver mass measured 5.7 cm x 6.8 cm which is increased from the prior exam. Left sided hydronephrosis due to a pelvic mass compressing the left ureter. Left iliac ring appears more prominent and more dilated than before, again probably secondary to extrinsic compression by the pelvic mass. Left inferior pubic ramus and posterior ischium with cortical disruption suggesting possibly pathological fracture from metastatic disease, this is also a new finding compared to before. There was vague subcutaneous infiltration in the visualized portion of her left hip and very vague subtle stranding involving the left external iliac and common femoral vein raising the possibility of venous obstruction. The spleen, pancreas, bilateral adrenals, and right kidney appeared normal. This was a noncontrast evaluation. Grade 4 hydronephrosis was secondary to obstruction by the pelvic mass and left hip had asymmetrical subcutaneous edema with infiltration surrounding the left external iliac and common femoral veins. Carboplatin/Taxol restarted again July 03 2018, by Dr. Arana, since patient was not considered as having [place] resistant disease. CURRENT TREATMENT: Patient is getting Carboplatin AUC of 5 which comes up to approximately 275 mg and Taxol 140 mg per meters squared which comes to 220 mg total IV. Every 3 weeks six cycles were planned by Dr. Arana. The first cycle dose reduction was 20%. Neulasta is given day 2 of each Cycle. Patient gets premedications with oral Benadryl, IV Pepcid, IV dexamethasone 20 mg. Premedications with nausea medicines also and patient tolerates this reasonably well. She told us that last time she got her treatment she initially had to stand up for the whole treatment and then finally a small shot of something was given to her and she relaxed and went to sleep and was able lay back in the recliner. We have asked John the chemo RN nurse appraisal manager, but we were unable to find any record of what shot the patient is talking about that relaxed her so much. INTERIM EVENTS: Patient said she was admitted to the hospital latter part of June because she had such severe swelling and pain and discomfort in her left leg, extensive DVT and Dr. Sandoval tried to do thrombolysis and was not able to do so unfortunately, they really tried, more than five or seven times the patient says they tried. Finally they left an IVC filter in place we are told, but since then patient says actually she is getting worse, both legs are swelling now, her heart rate goes up even at rest, she is so annoyed and tired of everything. The swelling has extended into her suprapubic region and vaginal area and it causes her significant burning when she tries to urinate. No high grade fevers. No chills that much we know. Patient denies hemoptysis. Denies pleuritic chest pain. Denies nausea, vomiting, but states she has so much constipation and she realizes it is probably from the [place], the pain medicines, but the constipation is really bad. Patient says she has tried Senna tea. She has tired over the counter stuff, but she did not call the nursing staff for suggestions. The patient denies headaches or double vision. On examination frail looking lady, has a walker and is standing up and would prefer to be examined in this position. Performance status is about 3 to 4 on a scale of 4 by ECOG. Heart rate 139 per minute. Respirations 16 per minute. Blood pressure 127/74. Oxygen saturation 99% on room air. Temperature 99.1. Respiratory rate 20 per minute. Conjunctiva pale. Sclera do not appear icteric. Pupils equal reacting to light. Buccal mucosa shows pallor. Tongue is midline. Speech is normal. No adenopathy of the neck. No jugular venous distention. Lungs still reveal occasional dry crackle, no dullness to percussion. Cardiovascular system - tachycardia, but no murmurs, gallops or rubs. Abdomen is difficult to evaluate standing up. No distinct masses are seen, but the whole lower half of the abdomen looks all swollen and literally dilated veins like varicosities are seen in that region, suprapubic area is all swollen, and left leg is markedly swollen. The right one is also swollen, but no as badly. There is no clubbing or cyanosis. Skin turgor is on the dry side. Labs reviewed with the patient. Patient is still anemic, but right now the priority may be getting through the chemotherapy, hopefully try to shrink the mass, and to try and calm the patient down so we can proceed further. Eventually Mrs. Canales did settle down. IMPRESSION: Metastatic endometrial cancer. So far there has not been a dramatic response to the Carboplatin/Taxol regimen. The same regimen the patient took last year and had a excellent response to it. We will proceed with today's Cycle II. We will ask radiation therapy, Dr. Ambriz/Ramakrishna, to evaluate to see if any local radiation to the pelvic mass could help us with this problem of large pelvic mass left hydronephrosis grade 4 and the significant pain and discomfort the patient is having. If they agree and if Mrs King agreesand renal function permits, then we could give weekly radiosensitizing agent with the palliative radiation. We will also add some Pyridium for three days to see if that helps the severe burning patient is having in the urine while we wait on a urine analysis and culture from today. We shared with the patient the CAT scans, the PET scans, patiently to try and gain some sort of rapport. For the constipation we suggested MiraLAX 17 grams in a warm cup of coffee three times a day, citrate of magnesia 300 mL one bottle at night today, once only. Patient will be brought back tomorrow for her Neulasta injection and today in the premedications we will give the patient the Benadryl IV instead of by mouth and if that does not help her relax and be comfortable sitting in a chair for the chemotherapy duration then we will add some Ativan 0.5 mg IV times once to see if that will make the patient more comfortable. EMLA cream was scripted so the patient can use that. Her port is relatively new and it has some ecchymosis and a small bruise and quite tender we prescribed the EMLA cream. We did our best to do whatever we could for Mrs. Canales today, meeting her for the first time and we also discussed the case very briefly with Dr. Durbin from radiation oncology. We did give the patient the result of her CA-125 the latest one which had gone up every so slightly from 38 to 41 approximately despite one cycle of chemotherapy. If there is progression of disease on this regimen we will have to strongly consider switching treatments. Many patient's receive Megace or Depo-Provera for metastatic endometrial cancer, but with the patient's history of extensive DVT that would not be an option: noted. PLAN: As above. With next labs, CBC diff, CMP, Mg and PTH and 25 OH Vitamin D will also be added. Patient follows with Dr. Sandoval for the extensive DVT left leg as of 06/22/2018 and will continue her Eliquis. For pain control patient will continue the NORCO. RTC 3 weeks. Call PRN. Electronically Signed by Alphonso Shaw MD 08/11/2018 01:53 P DD: Alphonso Shaw MD 08/02/2018 07:56 P DT: aaron 08/06/2018 12:11 P CC: DO Matteo Higgins MD
[2018-08-09] MEDS ORDERED: MORPHINE 4 MG/ML 1ML VIAL/SYRINGE (J2270) IV ONE (16:30)
[2018-08-09] MEDS ORDERED: MORPHINE SULF IN 0.9% NACL 100 MG in APPROPRIATE DILUENT 1 EA IV SCH ×2 (16:30)
[2018-08-09] MEDS ORDERED: LACTULOSE 20 GM/30 ML SYRUP UD PO ONE (16:45)
[2018-08-09] MEDS ORDERED: SENOKOT S TAB PO SCH (21:00)
== END 2018-08-03 12:57 | disposition home or self-care (01) ==
LOC: M ONCM 12:33
PROVIDERS: ATTEND Internal Medicine Hematology & Oncology
DX: C54.1 Malignant neoplasm of endometrium (principal); C77.9 Secondary and unspecified malignant neoplasm of lymph node, unspecified; C78.7 Secondary malignant neoplasm of liver and intrahepatic bile duct; C78.02 Secondary malignant neoplasm of left lung; C78.01 Secondary malignant neoplasm of right lung; D50.9 Iron deficiency anemia, unspecified; Z79.899 Other long term (current) drug therapy
CPT/HCPCS: 36415; 36591; 80053; 81001; 82728; 83520; 83550; 83735; 85027; 86304; 86850; 86920; 96366; 96367; 96368; 96372; 96375; 96413; 96417; G0463; J1100; J1200; J1453; J2060; J2469; J2505; J9045; J9267

== ENCOUNTER → 2018-08-03 | Outpatient (CLI) | payer BC ==
[~2018-08-03] MED LIST changes: +B COTAB3 PO; +CALC500T36 PO; +DIPH50VL IV; +EMEN150S IV; +FISH1000 PO; +HYDR-3716 PO; +LIDO2.5C15 TOP; +MAGN400T2 PO; +MORP1TAB20 PO; +NEUL0.6I SC; +NORC1TAB4 PO; +NORC7.5T35 PO; +PACL150I IV; +PYRI1TAB5 PO; +VITA100066 PO; +VITA500T PO; +[UNRECOGNIZED DRUG - CODE] IV; +[UNRECOGNIZED DRUG - CODE] IV; +[UNRECOGNIZED DRUG - CODE] IV; +[UNRECOGNIZED DRUG - CODE] IV
--- NOTE | 2018-08-06 20:37 | RADONC ---
RADIATION ONCOLOGY NEW PATIENT CONSULTATION DATE OF CONSULTATION: 08/03/2018 CHART: ICD 10 CODE: [id number] DIAGNOSIS: This patient has a diagnosis of endometrial adenocarcinoma, metastatic and recurrent locally. STAGE: IV. ECOG PERFORMANCE STATUS: 2. HISTORY OF THE PRESENT ILLNESS: The patient is a 63-year-old female who has been diagnosed as having endometrial cancer (FIGO grade 2) with extensive metabolic uptake and a large heterogeneous pelvic mass. She has been treated in the past for her diagnosis of metastatic endometrial adenocarcinoma with paclitaxel and carboplatin. She received these drugs from August of 2017 to November of 2017 with some significant improvement, both in her CA-125 levels and in the CT scan findings. The scan from May of 2018, however, showed her metastatic disease to have progressed. She was scheduled to initiate carboplatin and paclitaxel chemotherapy and received her first cycle in June and received her second cycle just yesterday. We are seeing her because during the course of her history when the patient actually recurred, she developed significant pain in her pelvis with profound left lower extremity edema and, as well, significant right lower extremity edema. It was felt that perhaps her recurrent mass is contributing to her edema, and a radiotherapy consult was requested. She was initially biopsied on 07/07 2017, where upon the diagnosis was made of an endometrial adenocarcinoma FIGO grade 2. She presented later this year with worsening left lower extremity edema and severe pain in her back. She also had some shortness of breath. There was no evidence of pulmonary embolus by CT scan. Ultrasound revealed positive deep vein thrombosis in the proximal common femoral vein. Appropriate manipulations were performed to prevent pulmonary embolus, such as a Alden filter placement. The patient also had a hepatic mass measuring 5.7 cm on 06/15/2018 and 6.8 cm in maximum AP dimension. Left-sided hydronephrosis was a new finding, but it was felt that the large pelvic mass may have decreased slightly in size, whereas the left iliac vein appeared more prominent and minimally more dilated than on the previous examination. There was a modeled appearance to the left inferior pubic ramus and posterior ischium with cortical disruption suggesting a pathologic fracture, likely related to metastatic disease. Asymmetric subcutaneous edema was noted involving the visualized left hip with subtle infiltration surrounding the left external iliac vein and common femoral vein, raising the question of venous obstruction, either by extrinsic compression or thrombosis. Because of her large pelvic mass and this mass potentially contributing to her both hydronephrosis and thrombus involvement, we are seeing the patient to consider local regional radiotherapy. The patient received her retreatment as stated in June of 2018 for her recurrent/enlarging intra-abdominal disease secondary to her endometrial cancer and just received yesterday her second cycle. PAST MEDICAL HEALTH: Pilonidal cyst in 1971. MEDICAL ILLNESSES: Denied. FAMILY HISTORY: Of malignancy denied. GYNECOLOGIC HISTORY: She is a 0, postmenopausal at 52. ALLERGIES: No known drug allergies. SOCIAL HISTORY: She lives by herself and has a remote history of tobacco use but quit about 30 years ago. She has no history of alcohol consumption. REVIEW OF SYSTEMS: The patient is complaining primarily of swelling in her left lower extremity and refuses to sit down for this consultation. She is in a great deal of pain in the pelvic region. She denies any nausea, vomiting, neurologic dysfunction. Her energy level is profoundly compromised, and she is really able to care for herself but requires assistance sometimes with ambulation. She is certainly restricted from any strenuous physical activity. Lungs: No shortness of breath at the current time. Heart: Denies palpitations or tachycardia. Also, denies chest pain. Abdomen: She has fairly significant pain in the right and left pelvic regions. The left upper extremity is significantly swollen, and the swelling appears to be causing her significant discomfort and difficulty with mobilization. EXAMINATION FINDINGS: Weight not taken. HEENT: Normocephalic. EOMs intact. No intraoral lesions to suggest malignancies. Lymphatics: No palpable lymphadenopathy is appreciated in the head and neck area or axillary area. Heart: Regular without murmurs. Abdomen: Profoundly tender, and the patient has requested us to defer the examination secondary to her pain, and she is actually unable to lie down. What is obvious, however is a significantly swollen left lower extremity and a moderately to severely swollen right lower extremity. The pubic area is also swollen, as abdominal region. Neurologic examination appears to be grossly physiologic. IMPRESSION: Metastatic endometrial adenocarcinoma FIGO grade 2 with a large heterogeneous pelvic mass and extensive metastatic disease in the pelvic and paraaortic lymph node chains, as well as a large number of liver metastases. The patient also has mediastinal and hilar lymph nodes. She received carboplatin and paclitaxel chemotherapy from August 2017 to November 2017 with a fairly significant improvement, both clinically and according to her CA-125 levels. Now the patient has evidence of progressive metastatic disease and has initiated her second course of chemotherapy yesterday. PLAN OF RADIOTHERAPY: At the current time, the patient's hemoglobin is 8,and we must be cautious about utilizing radiotherapy because the tumor mass is so extensive that a large amount of her bone marrow must be preserved. In addition, I am uncertain whether or not the patient can actually lie on the table in order to receive radiotherapy in the first place because she is currently refusing to lie down secondary to severe pain. I explained the potential side effects of radiotherapy, including bone marrow suppression resulting in lowered blood counts. In addition, we have not actually given time for her current course of chemotherapy to work if indeed it will be effective this time. The patient claims she would like to wait until after perhaps her fourth cycle of chemotherapy to see if she sees some generalized improvement before initiating a course of radiotherapy which might further lower her counts. I feel that this is a reasonable consideration and would, therefore, concur that after completion of approximately four cycles of chemotherapy, if the patient has improved clinically and still has issues with ureteral obstruction or clot or thromboses, one might consider radiotherapy at that time. If the hydronephrosis is an issue or a concern, a more immediate consideration might be stent placement. However, the patient obviously has a lot of scar tissue within the pelvis and abdomen. At this time, we will defer making a formal recommendation for radiotherapy but should things deteriorate and the patient shows no response whatsoever to chemotherapy, palliative radiotherapy could be considered to the pelvic area to improve the effects of a fairly large tumor mass, as long as the patient is aware that her blood counts will significantly be reduced. At this point, the patient is unwilling to consider radiotherapy if her blood counts will be at jeopardy, as she wishes to wait until she receives additional chemotherapy to determine whether or not it will improve her overall status. Thank you for allowing us the opportunity of participation in the joint management of this fine patient. Most sincerely. JAMEL
--- NOTE | 2018-08-10 15:30 | MEDONC ---
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 The patient had developed a DVT in her left lower extremity with extensive swelling and pain and has recently undergone a left lower extremity venous thrombolysis with angioplasty and stenting of the left common and external iliac veins. The patient had an improvement in her left lower leg swelling and had some improvement and had been sent home. She came back to the emergency room with a chief complaint of swelling of both the lower extremities and severe sacral and pelvic pain. The patient had been placed on oral pain medications with an oxycodone and Percocet combination and she states that this has not been adequate for pain control management. She also relates that she has not had a bowel movement in about 3 days and that it is becoming more and more difficult for her to move her bowels. The patient showed no sign of any venous occlusion in the right lower extremity. She is currently on the floor. She is rocking back and forth in severe pain and relates that her pain is intense, it is about a 12 over 10 and that it is currently uncontrolled. The patient's medications include: - Apixaban 5 mg p.o. b.i.d. - vitamin C 500 mg p.o. daily - cholecalciferol 1000 units p.o. daily - fish oil 1000 mg p.o. daily - magnesium oxide 400 mg p.o. daily - calcium 500 mg p.o. daily ALLERGIES: NO KNOWN DRUG ALLERGIES. Her other medications include Megace 625 mg p.o. daily She is currently on heparin intravenous drip. PAST MEDICAL HISTORY: Notable for stage IV endometrial carcinoma and history of bilateral hydronephroses. She is postmenopausal at age 52. She had a pilonidal cyst in 1971. TREATMENT HISTORY: Includes Taxol carboplatinum in June 2018. FAMILY HISTORY: Otherwise noncontributory. REVIEW OF SYSTEMS: On the patient's review of systems, again she states the pain is 12 at 10 and that the [place] is not helping, but she is afraid of taking morphine as she does not want to be too sleepy. She is currently rocking back and forth in the bed and complains of pain in the mid abdominal/pelvic area and bilateral lower extremities. She has had anorexia. She says that currently has no desire to eat at this particular point and she has lower leg swelling, which has been going on for several weeks. She is unable to ambulate without assistance and has been using a walker at home. Denies any numbness and tingling in the fingertips and toes. She states that her skin has not been weeping and that she has had no bleeding episodes. The remainder of her 12-point review of systems is otherwise negative. SOCIAL HISTORY: She lives by herself. She used to smoke, stopped smoking about 30 years ago and denies any history of any alcohol consumption. PHYSICAL EXAMINATION: Her temperature is 100.1, pulse is 122, respiratory rate is 22, BP is 108/55, pulse oximetry is 95. HEENT is normocephalic, atraumatic. She has got chemotherapy induced alopecia. Sclerae is white, muddy but nonicteric. Her oropharynx is without any lesions or thrush. Her neck is supple. Chest has decreased breath sounds at the bases. Cardiovascular: S1, S2 are appreciated with no murmurs. The patient's chest is clear. Port-A-Cath site is inspected with no signs of any erythema. Breasts are small, atrophic, no masses. Her abdomen is somewhat distended, globoid with some pitting edema in the lower pelvic area, and the patient has massive edema, 4+ bilateral lower extremities. She has fair capillary filling of the toes of both the right and left feet. LABORATORY EXAMINATION: WBC count is 11.5. Her hemoglobin and hematocrit is 10.7 over 33.8. Her MCV is 8.3. Her RDW is 18.7. Her platelets 96. The patient's serum chemistries show a sodium is 130, potassium is 4.7, chloride 95, CO2 of 32, anion gap is 3, BUN is 26, creatinine 0.7, GFR is greater than 60, fasting glucose is 109, calcium is 98. IMAGING STUDIES: Her vascular ultrasound done on 08/08/2018 showed a left popliteal trunk, there is no occlusion of the left common femoral vein stent. On her prior imaging studies for her carcinoma from 06/15/2018, she was found to have a hepatic mass measuring 5.7 cm in transverse diameter and 6.8 cm in maximal AP diameter, as well as left sided hydronephrosis, which was a new finding. The patient had suspected intraperitoneal and retroperitoneal adenopathy and the pelvic mass with adenopathy consistent with malignancy and metastatic disease. The hydronephrosis is a grade 4 hydroureteronephrosis. The spleen, pancreas, bilateral adrenals, and right kidney appear normal. IMPRESSION: 1. Stage IV endometrial carcinoma status post treatment cycle with Taxol carboplatinum. 2. Left femoral vein occlusion, now status post thrombolysis and stent implantation. 3. Severe pelvic pain, possibly due to compressive symptoms of the tumor. Currently not controlled on current doses of pain medication orally. PLAN: Start the patient on a dose of morphine initially and start her on a continuous infusion of morphine pump. On her prior PET scan there showed no sign of any abnormal skeletal hypermetabolic uptake and so I am not concerned with any cord compression type symptoms. The patient has extensive hypermetabolic uptake in a large heterogeneous pelvic mass and this is likely causing her a lot of compressive symptoms and pain. Once the patient is on a steady dose of morphine, which may require dose adjustments, I have given instructions that the patient can have the continuous infusion of morphine drip increased by 1 mg an hour every 30 minutes with a ceiling maximum of 3 mg an hour. Then I will be able to convert the patient possibly over to some long-acting morphine, such as an oxycodone controlled release. Also, the patient will need intravenous fluids and laxatives for her bowels. Discussions with the patient and her family regarding the stage of disease, her current medical condition and her performance status will also be discussed. The patient has advanced disease at this point, muscle wasting and may be more along the lines of palliative care. Electronically Signed by Caitlyn Richards MD 08/14/2018 10:37 A DD: Caitlyn Richards MD 08/09/2018 04:57 P DT: lorenzo 08/10/2018 12:56 P CC:
== END ==
LOC: M ONCR 12:40
PROVIDERS: ATTEND Radiology Radiation Oncology
DX: C54.1 Malignant neoplasm of endometrium (principal)

== ENCOUNTER 2018-08-08 11:57 | Inpatient (IN) | payer BC ==
[~2018-08-08] VITALS: Ht 160 cm; Wt 68.2 kg
[~2018-08-08 11:57] MED LIST changes: -CARBOPLATIN IV ONE; -FAMOTIDINE 20 MG IV IV ONE; -FOSAPREPITANT PERIPHERAL LINE 30 MIN INFUSION (PREMIX) IV ONE; -LORAZEPAM 2 MG/ML IVP PRN; -MIDAZOLAM INJ 2 MG/2 ML VIAL (J2250) As Ordered ONE; -NS IV ONE; -PACLITAXEL IV ONE; -PALONOSETRON 250 MCG IV IV ONE; -PEGFILGRASTIM 6 MG/0.6ML SYR (NEULASTA) (J2505 PER 6MG) SC ONE; -SODIUM CHLORIDE 0.9% INJ 10 ML SYR IV PRN; -dexameTHASONE 20 MG IV IV ONE; -diphenhydrAMINE 25 MG IV IV ONE; -diphenhydrAMINE 50 MG PO PO ONE; -fentaNYL 100 MCG/2 ML INJECTION (J3010) As Ordered ONE
[2018-08-08] MEDS ORDERED: EMLA CREAM 5GM (LIDOCAINE/PRILOCAINE) TOP ONE (12:30)
[2018-08-08] MEDS ORDERED: MORPHINE 4 MG/ML 1ML VIAL/SYRINGE (J2270) IV ONE ×2 (14:00→18:30)
[2018-08-08 14:12] LABS: HEMATOCRIT 33.8 % (36.0-47.0); HEMOGLOBIN 10.7 g/dl (12.0-15.5); MEAN CORPUSCULAR HEMOGLOBIN 27.9 pg (27.0-33.0); MEAN CORPUSCULAR HGB CONC 31.7 g/dl (32.0-36.5); MEAN CORPUSCULAR VOLUME 88.3 fl (80.0-96.0); RED BLOOD COUNT 3.83 10^6/uL (4.00-5.40); WHITE BLOOD COUNT 11.5 10^3/uL (4.0-10.0)
[2018-08-08 14:44] LABS: BLOOD UREA NITROGEN 26 MG/DL (7-18); CALCIUM LEVEL 9.4 MG/DL (8.8-10.2); CARBON DIOXIDE LEVEL 32 MEQ/L (21-32); CHLORIDE LEVEL 95 MEQ/L (98-107); GLOMERULAR FILTRATION RATE > 60.0 (>45); GLUCOSE, FASTING 109 MG/DL (70-100); POTASSIUM SERUM 4.7 MEQ/L (3.5-5.1); SODIUM LEVEL 130 MEQ/L (136-145)
[2018-08-08 15:08] LABS: PLATELET COUNT, AUTOMATED 96 10^3/uL (150-450)
--- NOTE | 2018-08-08 15:14 | REP ---
BILATERAL LOWER EXTREMITY DUPLEX VEINS: HISTORY: Swelling right lower extremity. There are no filling defects in the deep venous system. The deep venous system is patent. IMPRESSION:There is no deep venous thrombosis. LEFT LOWER EXTREMITY: A stent is present in the left common femoral vein. The stent is occluded. There are no filling defects in the right femoral vein. The popliteal trunk is not seen. IMPRESSION:1. There is occlusion of the left common femoral vein stent. 2. The left popliteal trunk is not seen in the present examination. Electronically Signed by Charbel Reich MD 08/08/2018 03:19 P
[2018-08-08] MEDS ORDERED: LIDO2.5C15 TOP (16:06)
[2018-08-08] MEDS ORDERED: NORC7.5T35 PO (16:06)
[2018-08-08] MEDS ORDERED: HEPARIN DRIP 25,000 UNITS in APPROPRIATE DILUENT 1 EA IV SCH (16:33)
[2018-08-08] MEDS ORDERED: HEPARIN SOD (PORCINE) 5000 UNITS/ML VIAL IV PRN (16:45)
[2018-08-08] MEDS ORDERED: ONDANSETRON 4MG/2ML VIAL (J2405) IV PRN (19:30)
[2018-08-08 20:05] VITALS: BP 99/54
[2018-08-08] MEDS ORDERED: fentaNYL 25 MCG/HR PATCH TOP ONE (21:00)
[2018-08-08] MEDS ORDERED: APIXABAN 5 MG TAB (ELIQUIS) PO SCH (21:00)
[2018-08-08] MEDS: ANEXSIA, NORCO 7.5MG/325MG TABLET(HYDROCODONE/APAP) PO PRN (21:24)
[2018-08-08] MEDS: GABAPENTIN 100 MG CAP PO SCH (21:25)
[2018-08-09] MEDS: HEPARIN SOD (PORCINE) 5000 UNITS/ML VIAL IV PRN ×3 (00:19→19:00)
[2018-08-09] MEDS: ANEXSIA, NORCO 7.5MG/325MG TABLET(HYDROCODONE/APAP) PO PRN ×4 (01:32→14:10)
[2018-08-09] MEDS: GABAPENTIN 100 MG CAP PO SCH ×3 (05:07→21:47)
[2018-08-09 06:00] VITALS: BP 108/55
--- NOTE | 2018-08-09 08:35 | HPEPDOC ---
General Date of Admission Aug 08, 2018 at 19:16 Attending Physician: Matteo Sandoval MD Chief Complaint The patient is a 63-year-old female admitted with a reason for visit of Cancer Of [place] Nodes,Dvt,Endometrial Cancer. 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 Patient developed extensive DVT in her left lower extremity with extensive swelling and pain and has recently undergone a left lower extremity venous thrombolysis with angioplasty and stenting of her left common and external iliac veins. Patient had improvement in her left lower extremity swelling and pain and was some sway discharged home. Patient now presents to the emergency room with worsening swelling of both lower extremities and severe sacral and pelvic pain. Patient was discharged on oral Chester for pain control which the patient states has not been adequate for control of her pelvic and sacral pain. Patient underwent an ultrasound demonstrating no evidence of DVT in the right lower extremity. The ultrasound showed that there was occlusion of the left common and external iliac vein stents. Home Medications Scheduled (B Complex) 1 Tab Tab, 1 TAB PO DAILY, (Reported) Apixaban Base (Eliquis) 5 Mg Tab, 5 MG PO BID, (Reported) Ascorbic Acid (Vitamin C) 500 Mg Tab, 500 MG PO DAILY, (Reported) Cholecalciferol (Vitamin D) 1,000 Unit Tab, 1,000 UNIT PO DAILY, (Reported) Fish Oil (Fish Oil) 1,000 Mg Cap, 1,000 MG PO DAILY, (Reported) Magnesium Oxide (Magnesium Oxide) 400 Mg Tab, 400 MG PO DAILY, (Reported) Oyster Shell Calcium (Calcium) 500 Mg Tab, 500 MG PO DAILY, (Reported) Scheduled PRN (Lidocaine/Prilocaine 2.5-2.5 %) 1 Cre Cre, 1 DOSE TOP PRN PRN for PAIN, (Reported) APPLY TO PORT Allergies Coded Allergies: No Known Drug Allergy (Verified Allergy, Unknown, 12/06/17) Subjective General Date/Time Seen The patient was seen on 08/08/18 at 12:34. Subject Chief Complaint/History The patient is a 63-year-old female admitted with a reason for extreme sacral and pelvic pain, bilateral lower extremity swelling and history of left lower extremity DVT status post venous thrombolysis and angioplasty and stenting of the left common and external iliac veins. Current Medications Current Medications Current Medications Acetaminophen/ Hydrocodone Bitart (Anexsia, [place] 7.5mg/325mg) 1 tab Q4H PRN PO PAIN Last administered on 08/09/18at 05:26; Start 08/08/18 at 19:30 Apixaban (Eliquis) 5 mg BID PO ; Start 08/08/18 at 21:00; Stop 08/08/18 at 21:00; Status DC Ascorbic Acid (Vitamin C) 500 mg DAILY PO ; Start 08/09/18 at 09:00 Calcium Carbonate (Oscal) 500 mg DAILY PO ; Start 08/09/18 at 09:00 Fish Oil ([place]-3 (1000mg)) 1 cap DAILY PO ; Start 08/09/18 at 09:00 Gabapentin (Neurontin) 100 mg Q8H PO Last administered on 08/09/18at 05:07; Start 08/08/18 at 22:00 Heparin Sodium (Porcine) (Heparin) ASDIRECTED PRN IV SEE LABEL COMMENTS; Start 08/08/18 at 16:45; Stop 08/08/18 at 21:17; Status DC Heparin Sodium (Porcine) (Heparin) ASDIRECTED PRN IV SEE LABEL COMMENTS Last administered on 08/09/18at 06:25; Start 08/08/18 at 21:15 Heparin Sodium (Porcine) 19245 units/IV Miscellaneous Supplies 250 ml @ 0 mls/hr Q0M IV Last administered on 08/08/18at 19:24; Start 08/08/18 at 16:33; Stop 08/08/18 at 21:17; Status DC Heparin Sodium (Porcine) 85195 units/IV Miscellaneous Supplies 250 ml @ 0 mls/hr Q0M IV ; Start 08/08/18 at 21:07 Home Med (Med Rec Complete!) ASDIRECTED XX ; Start 08/08/18 at 16:15; Stop 08/08/18 at 16:15; Status DC Magnesium Oxide (Mag-Ox) 400 mg DAILY PO ; Start 08/09/18 at 09:00 Megestrol Acetate (Megace Es) 625 mg DAILY PO ; Start 08/09/18 at 09:00 Miscellaneous (Unresolved Clarification Entry) SEE LABEL COMMENTS DAILY XX ; Start 08/08/18 at 09:00; Stop 08/08/18 at 21:19; Status DC Non-Formulary Medication ( See Comment Field Below ) SEE COMMENTS SECTION ASDIRECTED XX ; Start 08/11/18 at 21:00 Non-Formulary Medication (Heparin Iv Rate Change Documentation ml/ Hr) ASDIRECTED XX ; Start 08/08/18 at 16:45; Stop 08/08/18 at 21:17; Status DC Non-Formulary Medication (Heparin Iv Rate Change Documentation ml/ Hr) ASDIRECTED XX Last administered on 08/09/18at 06:27; Start 08/08/18 at 21:15; Stop 08/13/18 at 21:14 Ondansetron HCl (ZOFRAN INJection) 4 mg Q6HP PRN IV NAUSEA OR VOMITING; Start 08/08/18 at 19:30 Vitamin D (Vitamin D) 1,000 units DAILY PO ; Start 08/09/18 at 09:00 Current Medications Current Medications Acetaminophen/ Hydrocodone Bitart (Anexsia, [place] 7.5mg/325mg) 1 tab Q4H PRN PO PAIN Last administered on 08/09/18at 05:26; Start 08/08/18 at 19:30 Apixaban (Eliquis) 5 mg BID PO ; Start 08/08/18 at 21:00; Stop 08/08/18 at 21:00; Status DC Ascorbic Acid (Vitamin C) 500 mg DAILY PO ; Start 08/09/18 at 09:00 Calcium Carbonate (Oscal) 500 mg DAILY PO ; Start 08/09/18 at 09:00 Fish Oil ([place]-3 (1000mg)) 1 cap DAILY PO ; Start 08/09/18 at 09:00 Gabapentin (Neurontin) 100 mg Q8H PO Last administered on 08/09/18at 05:07; Start 08/08/18 at 22:00 Heparin Sodium (Porcine) (Heparin) ASDIRECTED PRN IV SEE LABEL COMMENTS; Start 08/08/18 at 16:45; Stop 08/08/18 at 21:17; Status DC Heparin Sodium (Porcine) (Heparin) ASDIRECTED PRN IV SEE LABEL COMMENTS Last administered on 08/09/18at 06:25; Start 08/08/18 at 21:15 Heparin Sodium (Porcine) 54029 units/IV Miscellaneous Supplies 250 ml @ 0 mls/hr Q0M IV Last administered on 08/08/18at 19:24; Start 08/08/18 at 16:33; Stop 08/08/18 at 21:17; Status DC Heparin Sodium (Porcine) 64786 units/IV Miscellaneous Supplies 250 ml @ 0 mls/hr Q0M IV ; Start 08/08/18 at 21:07 Home Med (Med Rec Complete!) ASDIRECTED XX ; Start 08/08/18 at 16:15; Stop 08/08/18 at 16:15; Status DC Magnesium Oxide (Mag-Ox) 400 mg DAILY PO ; Start 08/09/18 at 09:00 Megestrol Acetate (Megace Es) 625 mg DAILY PO ; Start 08/09/18 at 09:00 Miscellaneous (Unresolved Clarification Entry) SEE LABEL COMMENTS DAILY XX ; Start 08/08/18 at 09:00; Stop 08/08/18 at 21:19; Status DC Non-Formulary Medication ( See Comment Field Below ) SEE COMMENTS SECTION ASDIRECTED XX ; Start 08/11/18 at 21:00 Non-Formulary Medication (Heparin Iv Rate Change Documentation ml/ Hr) ASDIRECTED XX ; Start 08/08/18 at 16:45; Stop 08/08/18 at 21:17; Status DC Non-Formulary Medication (Heparin Iv Rate Change Documentation ml/ Hr) ASDIRECTED XX Last administered on 08/09/18at 06:27; Start 08/08/18 at 21:15; Stop 08/13/18 at 21:14 Ondansetron HCl (ZOFRAN INJection) 4 mg Q6HP PRN IV NAUSEA OR VOMITING; Start 08/08/18 at 19:30 Vitamin D (Vitamin D) 1,000 units DAILY PO ; Start 08/09/18 at 09:00 Past Medical History Medical History Endometrial cancer with metastatic disease Surgical History Left lower extremity venous thrombolysis. Right internal jugular vein tunneled central venous catheter with subcutaneous port placement. Social History * Smoker: non-smoker Alcohol: Denies Drugs: denies Recent Travel/Sick Contacts: Denies: Recent travel, Recent sick contacts Psychosocial History: No pertinent psych hx Review of Systems Review of Systems General: Denies: Chills, Night Sweats, Fatigue, Malaise, Normal Appetite Constitutional: Denies: Chills, Fever, Malaise, Night Sweats, Weakness, Fatigue, Weight Loss, Lethargy Eyes: Denies: Pain, Vision change, Conjunctivae inflammation, Eyelid inflammation, Redness HEENT: Denies: Head Aches, Ear Pain, Dysphagia, Sinus Congestion, Post Nasal Drip, Sore Throat, Epistaxis Skin: Denies: Rash, Lesions, Jaundice, Bruising, Itching, Dry, Breakdown, Nail Changes Pulmonary: Denies: Dyspnea, Cough, Pleuritic Chest Pain Cardiovascular: Denies: Chest Pain, Palpitations, Orthopnea, Paroxysmal Noc. Dyspnea, Edema, Lt Headedness Gastrointestinal: Denies: Nausea, Vomiting, Abdominal Pain, Diarrhea, Constipation, Melena, Hematochezia Genitourinary: Denies: Dysuria, Frequency, Incontinence, Hematuria, Retention Hematologic: Denies: Bruising, Bleeding Excessively, Petecchia, Purpura, Enlarged Lymph Nodes ENDOCRINE: Denies: Polydipsia, Polyphagia, Polyuria, Heat Intolerance, Cold Intolerance Musculoskeletal: Denies: Neck Pain, Back Pain, Shoulder Pain, Arm Pain, Hand Pain, Leg Pain, Foot Pain, Joint Pain, Muscle Pain, Spasms Neurological: Denies: Weakness, Numbness, Incoordination, Change in speech, Confusion, Seizures Psych: Reports: Mood Normal; Denies: Anxiety, Depression, Memory Issues, Thoughts of Self Harm, Anger, Thoughts of Harming Other VITAL SIGNS VITAL SIGNS Vital Signs Date Time Temp Pulse Resp B/P (MAP) Pulse Ox O2 Delivery O2 Flow Rate FiO2 08/09/18 11:23 16 08/09/18 10:52 16 08/09/18 10:23 16 08/09/18 10:09 16 08/09/18 06:00 100.1 122 22 108/55 (72) 95 08/09/18 05:26 18 08/09/18 01:32 17 08/08/18 21:54 18 08/08/18 21:24 17 08/08/18 21:24 18 08/08/18 20:05 100.9 136 22 99/54 (69) 98 08/08/18 19:37 98.3 98 16 136/77 (96) 96 Room Air 08/08/18 18:48 16 08/08/18 17:30 98.2 78 14 146/74 (98) 96 Room Air 08/08/18 14:58 118 18 140/72 (94) 98 Room Air 08/08/18 14:29 16 08/08/18 14:02 16 Intake & Output 08/09/18 06:00 Intake Total 100 ml Output Total 400 ml Balance -300 ml Laboratory Tests 08/08/18 13:57: White Blood Count 11.5H, Red Blood Count 3.83L, Hemoglobin 10.7L, Hematocrit 33.8L, Mean Corpuscular Volume 88.3, Mean Corpuscular Hemoglobin 27.9, Mean Corpuscular Hemoglobin Concent 31.7L, Red Cell Distribution Width 18.7H, Plat elet Count 96L, Nucleated Red Blood Cells % (auto) 0.0, Immature Platelet Fraction 2.4, Blood Urea Nitrogen 26H, Creatinine 0.70, Sodium Level 130L, Potassium Level 4.7, Chloride Level 95L, Carbon Dioxide Level 32, Calcium Level 9.4, Anion Gap 3L, Glomerular Filtration Rate > 60.0, Fasting Glucose 109H 08/08/18 23:31: Activated Partial Thromboplast Time 50.7H 08/09/18 05:23: Activated Partial Thromboplast Time 53.6H 08/09/18 10:25: Activated Partial Thromboplast Time 88.4H Current Medications Medications (Trade) Dose Ordered Sig/Dmitry Route PRN Reason Start Time Stop Time Status Last Admin Dose Admin Acetaminophen/ Hydrocodone Bitart (Anexsia, [place] 7.5mg/325mg) 1 tab Q4H PRN PO PAIN 08/08/18 19:30 08/09/18 10:09 Ascorbic Acid (Vitamin C) 500 mg DAILY PO 08/09/18 09:00 08/09/18 08:54 Fish Oil ([place]-3 (1000mg)) 1 cap DAILY PO 08/09/18 09:00 08/09/18 08:53 Gabapentin (Neurontin) 100 mg Q8H PO 08/08/18 22:00 08/09/18 05:07 Heparin Sodium (Porcine) (Heparin) ASDIRECTED PRN IV SEE LABEL COMMENTS 08/08/18 21:15 08/09/18 06:25 Megestrol Acetate (Megace Es) 625 mg DAILY PO 08/09/18 09:00 08/09/18 08:53 Non-Formulary Medication (Heparin Iv Rate Change Documentation ml/ Hr) ASDIRECTED XX 08/08/18 21:15 08/13/18 21:14 08/09/18 06:27 Vitamin D (Vitamin D) 1,000 units DAILY PO 08/09/18 09:00 08/09/18 08:54 Laboratory Tests 08/08/18 13:57 Red Blood Count 3.83 L, Mean Corpuscular Volume 88.3, Mean Corpuscular Hemoglobin 27.9, Mean Corpuscular Hemoglobin Concent 31.7 L, Red Cell Distribution Width 18.7 H, Calcium Level 9.4 Objective Physical Examination General Exam: Positive: Alert, Cooperative, Severe Distress Eye Exam: Positive: PERRLA, Conjunctiva & lids normal, EOMI ENT Exam: Positive: Atraumatic, Mucous membr. moist/pink, Pharynx Normal, Tongue Midline, Nares Patent, Ext Auditory Canal Nml, Pinna Normal Neck Exam: Positive: Supple, +2 carotid pulse wo bruit; Negative: JVD, thyromegaly, Lymphadenopathy Chest Exam: Positive: Clear to auscultation, Normal air movement; Negative: Rales, Rhonchi, Wheezing, Diminished Heart Exam: Positive: Rate Normal, Regular Rhythm; Negative: Tachycardic, Bradycardic, Irregular Rhythm, Gallops, Murmurs, Rubs Telemetry: Positive: No significant arrhythmia, Sinus Abdomen Exam: Positive: Normal bowel sounds, Soft Female Exam: Positive: Nl Ext Genitalia Extremity Exam: Positive: Edema, Swelling; Negative: Clubbing, Cyanosis, Normal pulses, Tenderness, Other Skin Exam: Positive: Nl turgor and temperature Neuro Exam: Positive: Normal Gait, Normal Speech, Strength at 5/5 X4 ext, Normal Tone, Sensation Intact, Cranial Nerves 3-12 NL, Reflexes 2+ Psych Exam: Positive: Mental status NL, Mood NL, Memory Intact, Oriented x 3 Assessment/Plan Assessment 63-year-old female with endometrial cancer with metastatic disease who has extensive bilateral lower extremity swelling, history of left lower extremity DVT status post thrombolysis and iliac vein angioplasty and stenting and who now presents with extensive swelling of the lower extremities and severe pelvic and sacral pain which is not controlled using her oral narcotics. Plan Plan will be to start heparin drip and hold Eliquis. Legs will be elevated is much as possible. Patient has poor by mouth intake and has lost weight since her last admission to the hospital and will be started on Megace and encouraged to continue by mouth intake with Ensure supplements. Patient will be started on gabapentin and a fentanyl patch at 25 g an hour. Patient will continue with when necessary IV morphine and [place]. Hematology oncology consult will be requested to evaluate long-term treatment options for the patient's pain and cancer. Matteo Sandoval MD Aug 09, 2018 08:35
[2018-08-09] MEDS: MEGESTROL ES SUSP 625 MG/5 ML UDC PO SCH (08:53)
[2018-08-09] MEDS: OMEGA-3 1000MG CAPSULE PO SCH (08:53)
[2018-08-09] MEDS: ASCORBIC ACID 500 MG TAB PO SCH (08:54)
[2018-08-09] MEDS: OYSTER SHELL CALCIUM 500 MG TAB PO SCH (08:54)
[2018-08-09] MEDS: MAGNESIUM OXIDE 400 MG TAB (MAG-OX) PO SCH (08:54)
[2018-08-09] MEDS: VITAMIN D 1,000 INTERNATIONAL UNITS TABLET PO SCH (08:54)
[2018-08-09] MEDS ORDERED: MORPHINE 4 MG/ML 1ML VIAL/SYRINGE (J2270) IV ONE (10:30)
--- NOTE | 2018-08-09 12:14 | IPNPDOC ---
Subjective General Date/Time Seen The patient was seen on 08/09/18 at 11:33. Subject Chief Complaint/History The patient is a 63-year-old female admitted with metastatic endometrial cancer with severe swelling of both lower extremities and severe pelvic and sacral pain. Patient notes the swelling in her lower extremities has improved today. Patient still has significant pain in her pelvic and sacral regions. Patient acknowledges still not eating and drinking much. Current Medications Current Medications Current Medications Acetaminophen/ Hydrocodone Bitart (Anexsia, [place] 7.5mg/325mg) 1 tab Q4H PRN PO PAIN Last administered on 08/09/18at 10:09; Start 08/08/18 at 19:30 Apixaban (Eliquis) 5 mg BID PO ; Start 08/08/18 at 21:00; Stop 08/08/18 at 21:00; Status DC Ascorbic Acid (Vitamin C) 500 mg DAILY PO Last administered on 08/09/18at 08:54; Start 08/09/18 at 09:00 Calcium Carbonate (Oscal) 500 mg DAILY PO ; Start 08/09/18 at 09:00 Fish Oil ([place]-3 (1000mg)) 1 cap DAILY PO Last administered on 08/09/18at 08:53; Start 08/09/18 at 09:00 Gabapentin (Neurontin) 100 mg Q8H PO Last administered on 08/09/18at 05:07; Start 08/08/18 at 22:00 Heparin Sodium (Porcine) (Heparin) ASDIRECTED PRN IV SEE LABEL COMMENTS; Start 08/08/18 at 16:45; Stop 08/08/18 at 21:17; Status DC Heparin Sodium (Porcine) (Heparin) ASDIRECTED PRN IV SEE LABEL COMMENTS Last administered on 08/09/18at 06:25; Start 08/08/18 at 21:15 Heparin Sodium (Porcine) 19923 units/IV Miscellaneous Supplies 250 ml @ 0 mls/hr Q0M IV Last administered on 08/08/18at 19:24; Start 08/08/18 at 16:33; Stop 08/08/18 at 21:17; Status DC Heparin Sodium (Porcine) 62415 units/IV Miscellaneous Supplies 250 ml @ 0 mls/hr Q0M IV ; Start 08/08/18 at 21:07 Home Med (Med Rec Complete!) ASDIRECTED XX ; Start 08/08/18 at 16:15; Stop 08/08/18 at 16:15; Status DC Magnesium Oxide (Mag-Ox) 400 mg DAILY PO ; Start 08/09/18 at 09:00 Megestrol Acetate (Megace Es) 625 mg DAILY PO Last administered on 08/09/18at 08:53; Start 08/09/18 at 09:00 Miscellaneous (Unresolved Clarification Entry) SEE LABEL COMMENTS DAILY XX ; Start 08/08/18 at 09:00; Stop 08/08/18 at 21:19; Status DC Non-Formulary Medication ( See Comment Field Below ) SEE COMMENTS SECTION ASDIRECTED XX ; Start 08/11/18 at 21:00 Non-Formulary Medication (Heparin Iv Rate Change Documentation ml/ Hr) ASDIRECTED XX ; Start 08/08/18 at 16:45; Stop 08/08/18 at 21:17; Status DC Non-Formulary Medication (Heparin Iv Rate Change Documentation ml/ Hr) ASDIRECTED XX Last administered on 08/09/18at 06:27; Start 08/08/18 at 21:15; Stop 08/13/18 at 21:14 Ondansetron HCl (ZOFRAN INJection) 4 mg Q6HP PRN IV NAUSEA OR VOMITING; Start 08/08/18 at 19:30 Vitamin D (Vitamin D) 1,000 units DAILY PO Last administered on 08/09/18at 08:54; Start 08/09/18 at 09:00 Allergies Coded Allergies: No Known Drug Allergy (Verified Allergy, Unknown, 12/06/17) VITAL SIGNS VITAL SIGNS Vital Signs Date Time Temp Pulse Resp B/P (MAP) Pulse Ox O2 Delivery O2 Flow Rate FiO2 08/09/18 11:23 16 08/09/18 10:52 16 08/09/18 10:23 16 08/09/18 10:09 16 08/09/18 06:00 100.1 122 22 108/55 (72) 95 08/09/18 05:26 18 08/09/18 01:32 17 08/08/18 21:54 18 08/08/18 21:24 17 08/08/18 21:24 18 08/08/18 20:05 100.9 136 22 99/54 (69) 98 08/08/18 19:37 98.3 98 16 136/77 (96) 96 Room Air 08/08/18 18:48 16 08/08/18 17:30 98.2 78 14 146/74 (98) 96 Room Air 08/08/18 14:58 118 18 140/72 (94) 98 Room Air 08/08/18 14:29 16 08/08/18 14:02 16 08/08/18 12:03 98.1 156 16 131/78 98 Room Air Intake & Output 08/09/18 06:00 Intake Total 100 ml Output Total 400 ml Balance -300 ml Laboratory Tests 08/08/18 13:57: White Blood Count 11.5H, Red Blood Count 3.83L, Hemoglobin 10.7L, Hematocrit 33.8L, Mean Corpuscular Volume 88.3, Mean Corpuscular Hemoglobin 27.9, Mean Corpuscular Hemoglobin Concent 31.7L, Red Cell Distribution Width 18.7H, Platelet Count 96L, Nucleated Red Blood Cells % (auto) 0.0, Immature Platelet Fraction 2.4, Blood Urea Nitrogen 26H, Creatinine 0.70, Sodium Level 130L, Potassium Level 4.7, Chloride Level 95L, Carbon Dioxide Level 32, Calcium Level 9.4, Anion Gap 3L, Glomerular Filtration Rate > 60.0, Fasting Glucose 109H 08/08/18 23:31: Activated Partial Thromboplast Time 50.7H 08/09/18 05:23: Activated Partial Thromboplast Time 53.6H 08/09/18 10:25: Activated Partial Thromboplast Time 88.4H Current Medications Medications (Trade) Dose Ordered Sig/Dmitry Route PRN Reason Start Time Stop Time Status Last Admin Dose Admin Acetaminophen/ Hydrocodone Bitart (Anexsia, [place] 7.5mg/325mg) 1 tab Q4H PRN PO PAIN 08/08/18 19:30 08/09/18 10:09 Ascorbic Acid (Vitamin C) 500 mg DAILY PO 08/09/18 09:00 08/09/18 08:54 Fish Oil ([place]-3 (1000mg)) 1 cap DAILY PO 08/09/18 09:00 08/09/18 08:53 Gabapentin (Neurontin) 100 mg Q8H PO 08/08/18 22:00 08/09/18 05:07 Heparin Sodium (Porcine) (Heparin) ASDIRECTED PRN IV SEE LABEL COMMENTS 08/08/18 21:15 08/09/18 06:25 Megestrol Acetate (Megace Es) 625 mg DAILY PO 08/09/18 09:00 08/09/18 08:53 Non-Formulary Medication (Heparin Iv Rate Change Documentation ml/ Hr) ASDIRECTED XX 08/08/18 21:15 08/13/18 21:14 08/09/18 06:27 Vitamin D (Vitamin D) 1,000 units DAILY PO 08/09/18 09:00 08/09/18 08:54 Laboratory Tests 08/08/18 13:57 Red Blood Count 3.83 L, Mean Corpuscular Volume 88.3, Mean Corpuscular Hemoglobin 27.9, Mean Corpuscular Hemoglobin Concent 31.7 L, Red Cell Distribution Width 18.7 H, Calcium Level 9.4 Objective Physical Examination General Exam: Positive: Alert, Cooperative, Severe Distress Eye Exam: Positive: PERRLA, Conjunctiva & lids normal, EOMI ENT Exam: Positive: Atraumatic, Mucous membr. moist/pink, Pharynx Normal, Tongue Midline, Nares Patent, Ext Auditory Canal Nml, Pinna Normal Neck Exam: Positive: Supple, +2 carotid pulse wo bruit; Negative: JVD, thyromegaly, Lymphadenopathy Chest Exam: Positive: Clear to auscultation, Normal air movement; Negative: Rales, Rhonchi, Wheezing, Diminished Heart Exam: Positive: Rate Normal, Regular Rhythm; Negative: Tachycardic, Bradycardic, Irregular Rhythm, Gallops, Murmurs, Rubs Telemetry: Positive: No significant arrhythmia, Sinus Abdomen Exam: Positive: Normal bowel sounds, Soft; Negative: BS Hyperactive, BS Hypoactive, Tenderness, Hepatospenomegaly, Mass, Hernia Female Exam: Positive: Nl Ext Genitalia; Negative: Lesions, Discharge, Odor, Tenderness Extremity Exam: Positive: Edema, Swelling; Negative: Clubbing, Cyanosis, Normal pulses, Tenderness Skin Exam: Positive: Nl turgor and temperature Neuro Exam: Positive: Normal Gait, Normal Speech, Strength at 5/5 X4 ext, Normal Tone, Sensation Intact, Cranial Nerves 3-12 NL, Reflexes 2+ Psych Exam: Positive: Mental status NL, Mood NL, Memory Intact, Oriented x 3 Assessment/Plan Assessment 63-year-old female with history of endometrial cancer and extensive left lower extremity DVT and swelling who is status post left lower extremity venous thrombolysis with iliac vein angioplasty and stenting. Patient was admitted with swelling of both lower extremities and pelvic and back pain. Patient also has malnutrition secondary to inability to eat secondary to her chronic pain related to her DVT and endometrial cancer. Patient was admitted and started on a heparin drip and has significant improvement in the swelling in her lower extremities but continues with extreme pain in her sacral and pelvic regions. Plan Patient was started on heparin drip and hers Eliquis was held. Patient was started on Megace to help increase her appetite as well as will continue on Ensure and encouraged to eat and snack as much as possible. Her bilateral lower extremity swelling has improved with leg elevation and on a heparin drip. Patient has been offered the option of Lovenox recently which she has refused. Right lower extremity swelling secondary to malnutrition and immobility with no evidence of DVT in the right lower extremity. The left lower extremity swelling is secondary to her iliofemoral DVT and has had significant improvement in the left lower extremity swelling since undergoing thrombolysis with even more improvement today after undergoing admission starting of heparin drip and elevation. Heme" was consulted to evaluate the patient regarding long-term plan for her endometrial cancer with metastatic disease. Pain management was consulted on her last admission and the recommendation was for hematology and oncology to monitor and prescribed treatment for her pain. Patient has been started on a fentanyl patch at 25 g an hour and will continue with when necessary Cisco and when necessary IV morphine. Matteo Sandoval MD Aug 09, 2018 12:14
[2018-08-09 14:00] VITALS: BP 85/52
[2018-08-09] MEDS: HEPARIN DRIP 25,000 UNITS in APPROPRIATE DILUENT 1 EA IV SCH (16:20)
[2018-08-09] MEDS ORDERED: FENTANYL REMOVAL DOCUMENTATION MISC XX SCH (17:30)
[2018-08-09] MEDS: NS 1,000 ML IV SCH (18:09)
[2018-08-09] MEDS: MORPHINE SULF IN 0.9% NACL 100 MG in APPROPRIATE DILUENT 1 EA IV SCH ×2 (18:09)
[2018-08-09 22:00] VITALS: BP 115/74
[2018-08-10] VITALS (8 sets, daily range): BP systolic 80–120; BP diastolic 38–74
[2018-08-10] MEDS: GABAPENTIN 100 MG CAP PO SCH ×4 (05:09→22:00)
[2018-08-10] MEDS: NS 1,000 ML IV SCH ×2 (05:09→17:28)
[2018-08-10] MEDS: MAGNESIUM OXIDE 400 MG TAB (MAG-OX) PO SCH (09:00)
[2018-08-10] MEDS: ASCORBIC ACID 500 MG TAB PO SCH (09:00)
[2018-08-10] MEDS: MEGESTROL ES SUSP 625 MG/5 ML UDC PO SCH (09:00)
[2018-08-10] MEDS: OYSTER SHELL CALCIUM 500 MG TAB PO SCH (09:00)
[2018-08-10] MEDS: OMEGA-3 1000MG CAPSULE PO SCH (09:00)
[2018-08-10] MEDS: VITAMIN D 1,000 INTERNATIONAL UNITS TABLET PO SCH (09:00)
[2018-08-10] MEDS: HEPARIN DRIP 25,000 UNITS in APPROPRIATE DILUENT 1 EA IV SCH (13:51)
[2018-08-10] MEDS ORDERED: MORP1TAB20 PO (14:45)
--- NOTE | 2018-08-10 14:45 | IPNPDOC ---
Date Seen The patient was seen on 08/10/18. Progress Note SUBJECTIVE: Ms. King is a 63-year-old female with metastatic endometrial cancer on chemotherapy, who has a history of a left lower extremity DVT, status post thrombolysis. She was admitted [address] Sandoval due to increased swelling in her right lower extremity and imaging did not show a new DVT in the right lower extremity. He admitted her for pain control and elevation of her legs. Dr. Richards with hematology oncology saw the patient last night and is managing her morphine. Today, the patient's pain seems to be better, but her level consciousness is conversely diminished due to increased analgesia. She is groggy and sleepy. She is not eating, but is drinking a little. She cannot get out of bed per the nurses due to weakness and unsteadiness and is using a bedpan or is incontinent. Her friend is at the bedside and is concerned that there is no way, she'll be able to go back home. The way she is now. She feels that although she has been helping to care for her, she would not be able to care for her in this current state. I spoke with the nurse and the social media specialist who both agree the patient would likely need a higher level of care. At discharge, but it is challenging if she wants to continue chemotherapy, she would not qualify for hospice and if she continues chemotherapy, then it is difficult to place her with halfway. I think at this point, the best option is to have a palliative care consult to at least have them establish with the patient what her options are so she can make an informed decision about the next steps in her care, and the social media specialist will discuss the patient's current status with her brother to see if he could offer her assistance making these decisions and some support. Additionally, I think it is worthwhile to ask the hospitalist team to see her since there is no new surgical issue and most of her current hospital needs are medical. OBJECTIVE PHYSICAL EXAMINATION: VITAL SIGNS: Please see below. GENERAL: Patient is groggy, cachectic, slow to respond HEENT: Normocephalic, cranial nerves grossly intact CARDIOVASCULAR: Regular rhythm, tachycardic, heart rate 124 RESPIRATORY: Slightly coarse breath sounds bilaterally, no wheezes ABDOMINAL: Soft, nontender, nondistended. Diminished bowel sounds EXTREMITIES: 3+ edema right lower extremity, 2+ edema, left lower extremity, 2+ pulses bilateral lower extremities NEUROLOGICAL: Alert, with stimulation, oriented 3, no focal deficits noted PSYCHOLOGICAL: Mood is flat, patient seems depressed, patient is cooperative LABORATORY DATA, IMAGING STUDIES, MICROBIOLOGY: Please see below. ASSESSMENT AND PLAN: Ms. 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 1. Continue analgesia per heme onc recommendations. We appreciate their assistance, and her pain is definitely improved today. 2. Palliative care consult to discuss options with the patient for ongoing goals of care. Social work will also talk with the patient's brother, who is her healthcare proxy to see if he can help with these decisions as well. 3. Hospitalist consult to manage medical care and optimize patient as much as possible. 4. Social work to help with disposition. The patient in her current condition will not be stable to go back home without 24-hour nursing care. She cannot walk, stand, or transfer out of bed without 2-3 person assist and is not able to care for herself or perform ADLs with her current capacity. Options may include halfway facility, 24-hour home care, and hospice. VS, I&O, 24H, Fishbone Vital Signs/I&O Vital Signs Date Time Temp Pulse Resp B/P (MAP) Pulse Ox O2 Delivery O2 Flow Rate FiO2 08/10/18 11:00 98.4 121 19 82/50 (61) 98 08/08/18 19:37 Room Air I&O- Last 24 Hours up to 6 AM 08/10/18 06:00 Intake Total 200 ml Output Total 0 ml Balance 200 ml Laboratory Data 24H LABS Laboratory Tests 2 08/09/18 17:59: Activated Partial Thromboplast Time 46.2H 08/09/18 23:46: Activated Partial Thromboplast Time 71.1H 08/10/18 05:14: Activated Partial Thromboplast Time 86.6H MICKI LYNNE MD Aug 10, 2018 14:45
[2018-08-10] MEDS: MORPHINE SULF IN 0.9% NACL 100 MG in APPROPRIATE DILUENT 1 EA IV SCH ×2 (17:29)
--- NOTE | 2018-08-10 18:39 | IPNPDOC ---
Text Note Date of Service The patient was seen on 08/10/18. NOTE Patient with advanced endometrial cancer. I believe her AMS likely 2/2 advanced malignancy and poor nutritional status. Bl LE edema also likely 2/[address] Gill and plan is to transition to hospice/end-of life care. Patient is currently comfortable without pain symptoms. Please call us if you have any additional questions. VS,Fishbone, I+O VS, Fishbone, I+O Vital Signs Date Time Temp Pulse Resp B/P (MAP) Pulse Ox O2 Delivery O2 Flow Rate FiO2 08/10/18 14:00 99.6 123 20 82/51 (61) 94 08/08/18 19:37 Room Air I&O- Last 24 Hours up to 6 AM 08/10/18 06:00 Intake Total 200 ml Output Total 0 ml Balance 200 ml SD LIU MD Aug 10, 2018 18:39
[2018-08-10] MEDS ORDERED: NS 1,000 ML IV ONE (23:45)
[2018-08-11 01:05] VITALS: BP 75/35
[2018-08-11] MEDS ORDERED: SODIUM CHLORIDE 0.9% 1000ML IV ONE (01:15)
[2018-08-11 02:22] VITALS: BP 90/62
[2018-08-11] MEDS: GABAPENTIN 100 MG CAP PO SCH ×2 (05:25→14:00)
[2018-08-11] MEDS: NS 1,000 ML IV SCH (05:25)
[2018-08-11 06:00] VITALS: BP 82/45
[2018-08-11] MEDS: VITAMIN D 1,000 INTERNATIONAL UNITS TABLET PO SCH (09:00)
[2018-08-11] MEDS: OMEGA-3 1000MG CAPSULE PO SCH (09:00)
[2018-08-11] MEDS: MEGESTROL ES SUSP 625 MG/5 ML UDC PO SCH (09:00)
[2018-08-11] MEDS: ASCORBIC ACID 500 MG TAB PO SCH (09:00)
[2018-08-11] MEDS: MAGNESIUM OXIDE 400 MG TAB (MAG-OX) PO SCH (09:00)
[2018-08-11] MEDS: OYSTER SHELL CALCIUM 500 MG TAB PO SCH (09:00)
[2018-08-11] MEDS: HEPARIN DRIP 25,000 UNITS in APPROPRIATE DILUENT 1 EA IV SCH (12:39)
[2018-08-11 14:00] VITALS: BP 86/43
[2018-08-11] MEDS ORDERED: MORPHINE 10MG/0.5ML ORAL CONCENTRATE SOLUTION U/D SL PRN (15:45)
[2018-08-11] MEDS ORDERED: SCOPOLAMINE 1MG TRANSDERMAL PATCH TOP SCH (16:00)
--- NOTE | 2018-08-11 20:59 | IPNPDOC ---
Subjective General Date/Time Seen The patient was seen on 08/11/18 at 20:55. Subject Chief Complaint/History The patient is a 63-year-old female admitted with metastatic endometrial cancer. Patient has continued pain in her pelvic and sacral regions which is better controlled with morphine drip. Current Medications Current Medications Current Medications Acetaminophen/ Hydrocodone Bitart (Anexsia, [place] 7.5mg/325mg) 1 tab Q4H PRN PO PAIN Last administered on 08/09/18at 14:10; Start 08/08/18 at 19:30; Stop 08/09/18 at 17:17; Status DC Apixaban (Eliquis) 5 mg BID PO ; Start 08/08/18 at 21:00; Stop 08/08/18 at 21:00; Status DC Ascorbic Acid (Vitamin C) 500 mg DAILY PO Last administered on 08/09/18at 08:54; Start 08/09/18 at 09:00; Stop 08/11/18 at 15:43; Status DC Calcium Carbonate (Oscal) 500 mg DAILY PO ; Start 08/09/18 at 09:00; Stop 08/11/18 at 15:43; Status DC Fish Oil ([place]-3 (1000mg)) 1 cap DAILY PO Last administered on 08/09/18at 08:53; Start 08/09/18 at 09:00; Stop 08/11/18 at 15:43; Status DC Gabapentin (Neurontin) 100 mg Q8H PO Last administered on 08/10/18at 05:09; Start 08/08/18 at 22:00; Stop 08/11/18 at 15:43; Status DC Heparin Sodium (Porcine) (Heparin) ASDIRECTED PRN IV SEE LABEL COMMENTS; Start 08/08/18 at 16:45; Stop 08/08/18 at 21:17; Status DC Heparin Sodium (Porcine) (Heparin) ASDIRECTED PRN IV SEE LABEL COMMENTS Last administered on 08/09/18at 19:00; Start 08/08/18 at 21:15; Stop 08/11/18 at 15:43; Status DC Heparin Sodium (Porcine) 25846 units/IV Miscellaneous Supplies 250 ml @ 0 mls/hr Q0M IV Last administered on 08/08/18at 19:24; Start 08/08/18 at 16:33; Stop 08/08/18 at 21:17; Status DC Heparin Sodium (Porcine) 10837 units/IV Miscellaneous Supplies 250 ml @ 0 mls/hr Q0M IV Last administered on 08/11/18at 12:39; Start 08/08/18 at 21:07; Stop 08/11/18 at 15:43; Status DC Home Med (Med Rec Complete!) ASDIRECTED XX ; Start 08/08/18 at 16:15; Stop 08/08/18 at 16:15; Status DC Magnesium Oxide (Mag-Ox) 400 mg DAILY PO ; Start 08/09/18 at 09:00; Stop 08/11/18 at 15:43; Status DC Megestrol Acetate (Megace Es) 625 mg DAILY PO Last administered on 08/09/18at 08:53; Start 08/09/18 at 09:00; Stop 08/11/18 at 15:43; Status DC Miscellaneous (Unresolved Clarification Entry) SEE LABEL COMMENTS DAILY XX ; Start 08/08/18 at 09:00; Stop 08/08/18 at 21:19; Status DC Morphine Sulfate (Roxanol) 5 mg Q30MP PRN SL PAIN Last administered on 08/11/18at 19:46; Start 08/11/18 at 15:45 Morphine Sulfate 100 mg/IV Miscellaneous Supplies 100 ml @ 1 mls/hr Q24H IV Last administered on 08/10/18at 17:29; Start 08/09/18 at 17:15; Status Future hold Non-Formulary Medication ( See Comment Field Below ) SEE COMMENTS SECTION ASDIRECTED XX Last administered on 08/09/18at 17:30; Start 08/09/18 at 17:30; Stop 08/09/18 at 17:31; Status DC Non-Formulary Medication (Heparin Iv Rate Change Documentation ml/ Hr) ASDIRECTED XX ; Start 08/08/18 at 16:45; Stop 08/08/18 at 21:17; Status DC Non-Formulary Medication (Heparin Iv Rate Change Documentation ml/ Hr) ASDIRECTED XX Last administered on 08/11/18at 14:51; Start 08/08/18 at 21:15; Stop 08/11/18 at 15:43; Status DC Ondansetron HCl (ZOFRAN INJection) 4 mg Q6HP PRN IV NAUSEA OR VOMITING; Start 08/08/18 at 19:30; Stop 08/11/18 at 19:28; Status DC Scopolamine (Scopolamine) 1 mg Q72H TOP Last administered on 08/11/18at 17:26; Start 08/11/18 at 16:00 Sodium Chloride 1,000 ml @ 80 mls/hr [id number] IV Last administered on 08/11/18at 05:25; Start 08/09/18 at 17:00; Stop 08/11/18 at 15:43; Status DC Vitamin D (Vitamin D) 1,000 units DAILY PO Last administered on 08/09/18at 08:54; Start 08/09/18 at 09:00; Stop 08/11/18 at 15:43; Status DC Allergies Coded Allergies: No Known Drug Allergy (Verified Allergy, Unknown, 12/06/17) VITAL SIGNS VITAL SIGNS Vital Signs Date Time Temp Pulse Resp B/P (MAP) Pulse Ox O2 Delivery O2 Flow Rate FiO2 08/11/18 20:16 20 08/11/18 19:46 20 08/11/18 14:00 97.4 129 19 86/43 (57) 08/11/18 06:00 98.2 104 14 82/45 (57) 94 2.0 08/11/18 02:22 128 13 90/62 (71) 91 2.0 08/11/18 01:05 126 12 75/35 (48) 91 2.0 08/10/18 23:34 128 12 82/43 (56) 91 2.0 08/10/18 22:20 80/42 (55) 08/10/18 22:00 97.7 124 16 80/38 (52) 94 Intake & Output 08/11/18 06:00 Intake Total 2326.3 ml Output Total 0 ml Balance 2326.3 ml Laboratory Tests 08/11/18 05:33: Activated Partial Thromboplast Time 180.3*H 08/11/18 14:05: Activated Partial Thromboplast Time 114.5H Current Medications Medications (Trade) Dose Ordered Sig/Dmitry Route PRN Reason Start Time Stop Time Status Last Admin Dose Admin Morphine Sulfate (Roxanol) 5 mg Q30MP PRN SL PAIN 08/11/18 15:45 08/11/18 19:46 Morphine Sulfate 100 mg/IV Miscellaneous Supplies 100 ml @ 1 mls/hr Q24H IV 08/09/18 17:15 Future hold 08/10/18 17:29 Scopolamine (Scopolamine) 1 mg Q72H TOP 08/11/18 16:00 08/11/18 17:26 Objective Physical Examination General Exam: Positive: Alert, Cooperative, Severe Distress Eye Exam: Positive: PERRLA, Conjunctiva & lids normal, EOMI ENT Exam: Positive: Atraumatic, Mucous membr. moist/pink, Pharynx Normal, Tongue Midline, Nares Patent, Ext Auditory Canal Nml, Pinna Normal Neck Exam: Positive: Supple, +2 carotid pulse wo bruit; Negative: JVD, thyromegaly, Lymphadenopathy Chest Exam: Positive: Clear to auscultation, Normal air movement; Negative: Rales, Rhonchi, Wheezing, Diminished Heart Exam: Positive: Rate Normal, Regular Rhythm; Negative: Tachycardic, Bradycardic, Irregular Rhythm, Gallops, Murmurs, Rubs Telemetry: Positive: No significant arrhythmia, Sinus Abdomen Exam: Positive: Normal bowel sounds, Soft Female Exam: Positive: Nl Ext Genitalia Extremity Exam: Positive: Edema, Swelling; Negative: Clubbing, Cyanosis, Normal pulses, Tenderness, Other Skin Exam: Positive: Nl turgor and temperature Neuro Exam: Positive: Normal Gait, Normal Speech, Strength at 5/5 X4 ext, Normal Tone, Sensation Intact, Cranial Nerves 3-12 NL, Reflexes 2+ Psych Exam: Positive: Mental status NL, Mood NL, Memory Intact, Oriented x 3 Assessment/Plan Assessment Patient is a 63-year-old female with static endometrial cancer with left lower extremity extensive DVT and bilateral lower extremity swelling who is currently undergoing pain control with morphine drip. Plan Patient has better control of her pain and is at end of life care. Matteo Sandoval MD Aug 11, 2018 20:59
[2018-08-11] MEDS: MORPHINE SULF IN 0.9% NACL 100 MG in APPROPRIATE DILUENT 1 EA IV SCH ×2 (21:39)
[2018-08-11] MEDS ORDERED: LORazepam 2 MG/ML VIAL (J2060) IV PRN (23:00)
--- NOTE | 2018-08-12 10:49 | DS.PDOC ---
Discharge Summary General Date of Admission Aug 08, 2018 at 19:16 Date of Discharge 08/12/2018 Attending Physician: Matteo Sandoval MD Discharge Summary PROCEDURES PERFORMED DURING STAY: None. ADMITTING DIAGNOSES: 1. Metastatic endometrial cancer. DISCHARGE DIAGNOSES: 1. Metastatic endometrial cancer. COMPLICATIONS/CHIEF COMPLAINT: Cancer Of [place]ph Nodes,Dvt,Endometrial Cancer. HISTORY OF PRESENT ILLNESS: Patient is a 63-year-old female admitted with severe pelvic and sacral pain secondary to her endometrial cancer who also was noted to have bilateral lower extremity swelling. Patient had recently undergone a left lower extremity venous thrombolysis with iliac paint stenting with mild relief of her symptoms in her left lower extremity. HOSPITAL COURSE: Patient was admitted with severe pelvic and sacral pain as well as bilateral lower extremity swelling. Patient was seen by hematology and oncology and was started on a morphine drip for pain control. Patient continued to deteriorate during hospitalization was made comfort measures only. DISCHARGE MEDICATIONS: Please see below. ALLERGIES: Please see below. PHYSICAL EXAMINATION ON DISCHARGE: VITAL SIGNS: Please see below. GENERAL: LABORATORY DATA: Please see below. IMAGING: None PROGNOSIS: DISPOSITION: . TIME SPENT ON DISCHARGE: Greater than 45 minutes. Vital Signs/I&Os Vital Signs Date Time Temp Pulse Resp B/P (MAP) Pulse Ox O2 Delivery O2 Flow Rate FiO2 08/11/18 21:15 2.0 08/11/18 20:16 20 08/11/18 14:00 97.4 129 86/43 (57) 08/11/18 06:00 94 08/08/18 19:37 Room Air I&O- Last 24 Hours up to 6 AM 08/12/18 05:59 Intake Total 0 ml Balance 0 ml Laboratory Data Labs 24H Laboratory Tests 2 08/11/18 14:05: Activated Partial Thromboplast Time 114.5H Discharge Medications Scheduled (B Complex) 1 Tab Tab, 1 TAB PO DAILY, (Reported) Apixaban Base (Eliquis) 5 Mg Tab, 5 MG PO BID, (Reported) Ascorbic Acid (Vitamin C) 500 Mg Tab, 500 MG PO DAILY, (Reported) Cholecalciferol (Vitamin D) 1,000 Unit Tab, 1,000 UNIT PO DAILY, (Reported) Fish Oil (Fish Oil) 1,000 Mg Cap, 1,000 MG PO DAILY, (Reported) Magnesium Oxide (Magnesium Oxide) 400 Mg Tab, 400 MG PO DAILY, (Reported) Oyster Shell Calcium (Calcium) 500 Mg Tab, 500 MG PO DAILY, (Reported) Scheduled PRN (Lidocaine/Prilocaine 2.5-2.5 %) 1 Cre Cre, 1 DOSE TOP PRN PRN for PAIN, (Reported) APPLY TO PORT Allergies Coded Allergies: No Known Drug Allergy (Verified Allergy, Unknown, 12/06/17) Matteo Sandoval MD Aug 12, 2018 10:49
== END 2018-08-12 07:05 | disposition expired | DRG 861 ==
LOC: EDBD 11:57 → M ED 11:57 → M ED INP 19:16 → M MS5PR 20:05
PROVIDERS: ADMIT Surgery Vascular Surgery; ATTEND Surgery Vascular Surgery
DX: G89.3 Neoplasm related pain (acute) (chronic) (principal); E46 Unspecified protein-calorie malnutrition; C77.9 Secondary and unspecified malignant neoplasm of lymph node, unspecified; C78.00 Secondary malignant neoplasm of unspecified lung; C78.7 Secondary malignant neoplasm of liver and intrahepatic bile duct; T82.856A Stenosis of peripheral vascular stent, initial encounter; C79.31 Secondary malignant neoplasm of brain; C75.9 Malignant neoplasm of endocrine gland, unspecified; Z79.899 Other long term (current) drug therapy; Y83.2 Surgical operation with anastomosis, bypass or graft as the cause of abnormal reaction of the patient, or of later complication, without mention of misadventure at the time of the procedure